=== PATIENT | female | born 2000 | race Caucasian/White ===

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

== ENCOUNTER 2023-05-07 17:25 | Outpatient (REF) | payer MEDICAID, SELFPAY ==
[2023-05-08 05:35] LABS: CT PCR NOT DETECTED (Not Detect.); NG PCR NOT DETECTED (Not Detect.)
== END 2023-05-07 17:26 | disposition home or self-care (01) ==
LOC: HO.HHCLNP 17:25
PROVIDERS: Visit Provider Advanced Practice Midwife
DX: Z11.3 Encounter for screening for infections with a predominantly sexual mode of transmission (principal)
CPT/HCPCS: 0353U

== ENCOUNTER 2023-11-25 10:02 | Emergency (ER) | payer MEDICAID, SELFPAY ==
[2023-11-25 10:16] VITALS: BP 108/61; PULSE 114; RESP 18; TEMP 36.6; O2SAT 98; BMI 30.1
[2023-11-25 12:57] LABS: MANUAL DIFF FLAG NO
[2023-11-25 12:58] LABS: Basophils Percent Auto 0.3 % (0-2); Eosinophils Absolute Auto 0.1 X10*3/uL (0.0-0.4); Eosinophils Percent Auto 0.5 % (0-4); Hematocrit 39.3 % (37.0-47.0); Hemoglobin 12.7 g/dl (12.0-16.0); Imm Gran Abs Auto 0.02 X10*3/uL (0.00-0.03); Imm Gran Pct Auto 0.2 % (0.0-0.4); Lymphocytes Absolute Auto 1.8 X10*3/uL (1.2-4.9); Lymphocytes Percent Auto 15.8 % (20-40); Mean Corpuscular HGB Conc 32.3 g/dl (31.0-35.0); Mean Corpuscular Hemoglobin 25.5 pg (27.0-33.0); Mean Corpuscular Volume 78.8 fL (80.0-98.0); Mean Platelet Volume 10.4 fL (9.4-12.3); Monocytes Absolute Auto 0.7 X10*3/uL (0.1-1.2); Monocytes Percent Auto 6.5 % (2-11); Neutrophils Absolute Auto 8.5 x10*3/uL (2.0-8.3); Neutrophils Percent Auto 76.7 % (45-73); Platelet Count 293 X10*3/uL (160-400); Red Blood Count 4.99 X10*6/uL (4.20-5.50); Red Cell Distribution Width 14.7 % (11.0-16.0); White Blood Count 11.1 X10*3/uL (4.8-10.8)
[2023-11-25 13:00] LABS: Appearance Urine Cloudy; Color Urine Yellow; Glucose Urine UA Negative (Negative); Leukocyte Esterase Urine Moderate (2+) (Negative); Nitrite Urine Negative (Negative); UMIC TRIGGER UACC YES; Urine Blood Trace (Negative); Urine Ketones Negative (Negative); Urine Protein 30 (1+) mg/dL (Neg-Trace)
[2023-11-25 13:17] LABS: Alanine Aminotransferase 17 U/L (0-31); Albumin Level 4.4 g/dL (3.5-5.0); Alkaline Phosphatase 91 U/L (39-117); Anion Gap 16 (12-20); Aspartate Amino Transferase 19 U/L (5-31); Bilirubin Total 0.4 mg/dL (0.0-1.0); Blood Urea Nitrogen 7 mg/dL (9-16); Calcium 9.7 mg/dL (8.4-10.2); Carbon Dioxide 23 mmol/L (22-29); Chloride 105 mmol/L (96-108); Creatinine Clr Calc Pharmacy 118.2; Estimated Glomerular Filt Rate > 60; Glucose Random 97 mg/dL (60-115); Lipase 24 U/L (8-78); Potassium 4.1 mmol/L (3.3-5.1); Sodium 140 mmol/L (135-145); Total Protein 7.5 g/dL (6.5-8.0)
[2023-11-25 13:20] LABS: HCG Quantitative < 2 mIU/mL
[2023-11-25 13:35] LABS: Bacteria Urine 4+ (None Seen); UACC Culture Trigger YES; WBC Urine >50 /HPF (0-5)
--- NOTE | 2023-11-25 13:42 | ED_ITS ---
HPI - General Adult General Chief complaint: General Medical Stated complaint: Vomiting/Lower back pain Time Seen by Provider: 11/25/23 12:21 Source: patient Mode of arrival: ambulatory Limitations: no limitations History of Present Illness HPI narrative: Patient is a 23-year-old female who presents emergency department for evaluation of lower back pain diffuse left greater than right for 3 days with suprapubic pain and urinary frequency in addition to a single episode of vomiting while in the emergency department. She denies any fevers, chills, chest pain, shortness of breath, persistent nausea, diarrhea, constipation, hematuria, abnormal vaginal discharge, concern for sexually transmitted infections. She reports last menstrual period 11/10/2023 and denies possibility of . Denies any history of recent urinary tract infection. Related Data Previous Rx's Medication Instructions Recorded ondansetron HCl 4 mg tablet 4 mg PO Q8H PRN nausea and 06/29/20 (Zofran) vomiting #10 tabs albuterol sulfate 90 mcg/actuation 2 puff inhalation Q4-6H PRN 01/24/21 aerosol inhaler shortness of breath or wheezing #6.7 grams benzonatate 100 mg capsule 100 mg PO TID PRN cough #14 caps 01/24/21 (Tessalon Perles) fluticasone propionate 50 2 spray intranasal DAILY #16 grams 01/24/21 mcg/actuation nasal spray,suspension (Flonase Allergy Relief) prednisone 20 mg tablet 40 mg (2 x 20 mg) PO DAILY 5 days 01/24/21 #10 tabs albuterol sulfate 90 mcg/actuation 2 puff inhalation QID PRN 02/01/21 aerosol inhaler shortness of breath or wheezing #8.5 grams ondansetron HCl 4 mg tablet 4 mg PO Q8H PRN nausea and 02/01/21 (Zofran) vomiting #10 tabs pantoprazole 40 mg tablet,delayed 40 mg PO DAILY #20 tabs 02/01/21 release (Protonix) erythromycin 5 mg/gram (0.5 %) eye 0.5 inch ophthalmic (eye) TID #3.5 04/07/21 ointment grams hydrocodone 5 mg-acetaminophen 325 1 tab PO Q6H PRN pain #12 tabs 04/08/21 mg tablet ondansetron 4 mg disintegrating 4 mg PO Q8H PRN nausea and 04/08/21 tablet vomiting #20 tabs cefuroxime axetil 250 mg tablet 250 mg PO BID #14 tabs 11/25/23 Allergies Allergy/AdvReac Type Severity Reaction Status Date / Time SEASONAL ALLERGIES Allergy Intermediate UNKNOWN Uncoded 11/25/23 10:16 Review of Systems 2 Review of Systems: Yes all other systems are reviewed and are negative [facility] Past Medical History Attestation statement: The following information was validated with the patient. Source: old records reviewed Medical History Asthma Social History Social History Alcohol intake: never Advance Directives: No Advance Directives Information Provided: No Physical Exam ED Vital Signs: Vital Signs - 24 hr 11/25/23 10:16 Temperature 98 F Pulse Rate 114 H Respiratory Rate 18 Blood Pressure 108/61 Pulse Oximetry 98 Oxygen Delivery Method Room Air BMI result Body Mass Index 30.1 Appearance: Alert.?Oriented to person, place and time. No acute distress.?Normal affect. Eyes: Pupils equal, round and reactive to light.? ENT: Pharynx normal.?? Neck: Normal inspection.? Neck supple.?? CVS: Heart sounds normal. Normal heart rate and rhythm.? Pulses normal.?? Respiratory: No respiratory distress.? Lung sounds clear to auscultation bilaterally?? Abdomen: Soft with mild suprapubic tenderness upon palpation. No CVA tenderness. Normoactive bowel sounds. No pulsatile mass.?? Skin: Skin warm and dry.? Normal skin color.? Extremities: No lower extremity edema.? Neuro: Moves all extremities spontaneously. Sensation intact bilaterally. Ambulates with normal steady gait. Medical Decision Making Medical Decision Making MDM Narrative: Patient is a 23-year-old female who presents emergency department for evaluation of left greater than right low back pain, urinary frequency, suprapubic pain as per HPI. She is overall well-appearing. Nontoxic. No CVA tenderness, low suspicion for pyelonephritis, hydronephrosis, ureteral calculi. Suprapubic tenderness upon palpation, no rebound tenderness, low suspicion for appendicitis, diverticulitis, ovarian torsion, PID. Labs reveal mild leukocytosis of 11.1, no anemia, no electrolyte abnormality, no DEMARCO, hCG negative. Urinalysis consistent with UTI, received initial dose of antibiotics while in the emergency department. Tolerating oral intake. Stable for discharge home and outpatient follow-up with PCP. All questions answered. Differential Diagnosis Differential Diagnoses: The differential diagnosis associated with the presentation includes (See narrative above) Admission/Observation Consideration of admission/observation: Escalation of care including admission/observation considered (See narrative above) Lab Data MDM Lab Attestation statement: I reviewed the patient's lab results. (See narrative above) 11/25/23 12:49 11/25/23 12:49 Labs: Lab Results 11/25/23 Range/Units 12:49 WBC 11.1 H (4.8-10.8) X10*3/uL RBC 4.99 (4.20-5.50) X10*6/uL Hgb 12.7 (12.0-16.0) g/dl Hct 39.3 (37.0-47.0) % MCV 78.8 L (80.0-98.0) fL MCH 25.5 L (27.0-33.0) pg MCHC 32.3 (31.0-35.0) g/dl RDW 14.7 (11.0-16.0) % Plt Count 293 (160-400) X10*3/uL MPV 10.4 (9.4-12.3) fL Immature Gran % (Auto) 0.2 (0.0-0.4) % Neut % (Auto) 76.7 H (45-73) % Lymph % (Auto) 15.8 L (20-40) % Perkins % (Auto) 6.5 (2-11) % Eos % (Auto) 0.5 (0-4) % Baso % (Auto) 0.3 (0-2) % Lymph # (Auto) 1.8 (1.2-4.9) X10*3/uL Perkins # (Auto) 0.7 (0.1-1.2) X10*3/uL Eos # (Auto) 0.1 (0.0-0.4) X10*3/uL Baso # (Auto) 0.0 (0.0-0.2) X10*3/uL Abs Immat Gran (auto) 0.02 (0.00-0.03) X10*3/uL Absolute Neuts (auto) 8.5 H (2.0-8.3) x10*3/uL Absolute Nucleated RBC 0.000 (0.0-0.012) X10*3/uL Nucleated RBC % (auto) 0.0 (0.0-0.2) /100WBC Sodium 140 (135-145) mmol/L Potassium 4.1 (3.3-5.1) mmol/L Chloride 105 (96-108) mmol/L Carbon Dioxide 23 (22-29) mmol/L Anion Gap 16 (12-20) BUN 7 L (9-16) mg/dL Creatinine 0.74 (0.5-1.4) mg/dL Estim Creat Clear Calc 118.2 Estimated GFR > 60 Random Glucose 97 (60-115) mg/dL Calcium 9.7 (8.4-10.2) mg/dL Total Bilirubin 0.4 (0.0-1.0) mg/dL AST 19 (5-31) U/L ALT 17 (0-31) U/L Alkaline Phosphatase 91 (39-117) U/L Total Protein 7.5 (6.5-8.0) g/dL Albumin 4.4 (3.5-5.0) g/dL Lipase 24 (8-78) U/L Beta HCG, Quant < 2 mIU/mL Urine Color Yellow Urine Appearance Cloudy Urine pH 8.0 (5.0-9.0) Ur Specific [place] 1.020 (1.005-1.025) Urine Protein 30 (1+) H (Neg-Trace) mg/dL Urine Glucose (UA) Negative (Negative) mg/dL Urine Ketones Negative (Negative) mg/dL Urine Blood Trace H (Negative) Urine Nitrite Negative (Negative) Ur Leukocyte Esterase Moderate (2+) H (Negative) Urine RBC 11-20 H (0-2) /HPF Urine WBC >50 H (0-5) /HPF Ur Squamous Epith Cells 3-5 (0-2) /HPF Urine Bacteria 4+ (None Seen) Hyaline Casts 3-5 (0-2) /LPF External Record Review External record reviewed: Prior outpatient labs Prescription Management I considered prescription management with: Pain Medication (Acetaminophen/ibuprofen) and Antibiotic Discharge Plan Discharge Clinical Impression: Urinary tract infection Patient Disposition: Home, Self-Care Instructions: Urinary Tract Infection in Women (DC) Additional Instructions: Complete the entire course of antibiotics as prescribed. You can take ibuprofen 200 mg, 3 tablets (600mg) every 6-8 hours as needed for pain, in addition to Tylenol 500 mg, 2 tablets (1,000mg) every 4-6 hours as needed for pain, but not to exceed 3 doses daily (3,000mg).? Follow-up with your primary care provider. Return back to emergency department any new or worsening symptoms or concerns. Prescriptions: New cefuroxime axetil 250 mg tablet 250 mg PO BID Qty: 14 0RF No Action ondansetron HCl [Zofran] 4 mg tablet 4 mg PO Q8H PRN (Reason: nausea and vomiting) Qty: 10 0RF albuterol sulfate 90 mcg/actuation HFA aerosol inhaler 2 puff inhalation Q4-6H PRN (Reason: shortness of breath or wheezing) Qty: 6.7 0RF prednisone 20 mg tablet 40 mg PO DAILY 5 Days Qty: 10 0RF benzonatate [Tessalon Perles] 100 mg capsule 100 mg PO TID PRN (Reason: cough) Qty: 14 0RF fluticasone propionate [Flonase Allergy Relief] 50 mcg/actuation spray,suspension 2 spray intranasal DAILY Qty: 16 0RF Rx Instructions: administer into each nostril albuterol sulfate 90 mcg/actuation HFA aerosol inhaler 2 puff inhalation QID PRN (Reason: shortness of breath or wheezing) Qty: 8.5 0RF ondansetron HCl [Zofran] 4 mg tablet 4 mg PO Q8H PRN (Reason: nausea and vomiting) Qty: 10 0RF pantoprazole [Protonix] 40 mg tablet,delayed release (DR/EC) 40 mg PO DAILY Qty: 20 0RF erythromycin 5 mg/gram (0.5 %) ointment 0.5 inch ophthalmic (eye) TID Qty: 3.5 0RF hydrocodone-acetaminophen 5-325 mg tablet 1 tab PO Q6H PRN (Reason: pain) Qty: 12 0RF ondansetron 4 mg tablet,disintegrating 4 mg PO Q8H PRN (Reason: nausea and vomiting) Qty: 20 0RF Referrals: [facility] [Primary Care Provider] -
[2023-11-25] MEDS: cefuroxime axetiL 250 MG TABLET PO (14:04)
[2023-11-25] MEDS: Ketorolac Tromethamine 30 MG/ML VIAL IM (14:04)
== END 2023-11-25 14:10 | disposition home or self-care (01) ==
PROVIDERS: Nurse Practitioner Family; Emergency Provider Student in an Organized Health Care Education/Training Program
DX: N39.0 Urinary tract infection, site not specified (principal); R11.2 Nausea with vomiting, unspecified; M54.50 Low back pain, unspecified; R35.0 Frequency of micturition; Z79.899 Other long term (current) drug therapy
CPT/HCPCS: 36415; 80053; 81001; 81003; 83690; 84702; 85025; 87086; 87088; 87186; 96372; 99284; J1885

== ENCOUNTER 2024-06-12 13:27 | Emergency (ER) | payer MEDICAID, SELFPAY ==
--- NOTE | ~2024-06-12 | CT_ITS ---
EXAMINATION: CT ABDOMEN AND PELVIS WITHOUT CONTRAST CLINICAL INFORMATION: Left-sided flank pain. COMPARISON: No pertinent prior studies are available for comparison. TECHNIQUE: Multidetector volumetric imaging was performed from the lung bases to the pubic without contrast. Sagittal and coronal reformatted images were obtained on the technologist workstation. This CT examination was performed using dose optimization techniques as appropriate, variously including the following: *Automated exposure control. *Adjustment of mA and/or kV according to patient size (this includes techniques or standardized protocols for targeted exams where dose is matched to indication/reason for exam; i.e. extremities or head). *Use of iterative reconstruction technique. DLP: 605 mGy-cm FINDINGS: LUNG BASES: No abnormalities of the visualized lung bases. No demonstrated abnormalities of the visualized cardiac structures. ABDOMEN/PELVIS: Liver, Biliary Ducts, and Gallbladder: The unenhanced liver is normal in size and attenuation without focal hepatic lesions or biliary ductal dilatation. The gallbladder is physiologically distended without radiopaque gallstones, pericholecystic fluid, or significant gallbladder wall thickening. Pancreas: The pancreas is normal in appearance. Adrenal Glands: The adrenal glands are normal in appearance. Spleen: The spleen is normal in appearance. Kidneys and Ureters: The unenhanced kidneys are normal in size without evidence of nephrolithiasis or hydronephrosis. No ureterolithiasis or hydroureter. Urinary Bladder: The urinary bladder is partially distended without focal wall thickening. No bladder calculi are demonstrated. Gastrointestinal System: The stomach is decompressed and therefore not well evaluated on this exam. The small bowel is of normal caliber. The colon is normal in appearance without focal wall thickening or pericolonic inflammatory change. Normal appendix. Genitourinary: IUD in place. No adnexal soft tissue masses. Intra-abdominal and Retroperitoneal Spaces: No intra-abdominal free fluid collections or gas. No mesenteric, retroperitoneal, or inguinal lymphadenopathy. VASCULATURE: The abdominal aorta is of normal contour and caliber. MUSCULOSKELETAL: No lytic or sclerotic osseous lesions demonstrated. No soft tissue masses demonstrated. CT/CT abdomen pelvis wo IV con IMPRESSION: No CT abnormalities to explain the patient's symptoms. Electronically signed by: Eduard Grey DO 06/13/2024 01:12 AM EDT
[2024-06-12 14:04] VITALS: BP 121/67; PULSE 93; RESP 16; TEMP 36.6; O2SAT 100; BMI 32.5
--- NOTE | 2024-06-12 14:15 | ED.FEMALEGU ---
HPI - Female Genitourinary General Chief complaint: Urogenital-Female Stated complaint: stomach and back pain, blood in urine Time Seen by Provider: 06/12/24 16:23 Source: patient and RN notes reviewed Mode of arrival: ambulatory Limitations: no limitations History of Present Illness ED Provider: Katy Stinson PA-C HPI Narrative: This is a 23-year-old female, with no known medical problems, who presents emergency department with complaints of acute left-sided flank pain which started yesterday. Patient states that while she was resting at home she suddenly developed left flank pain. She states that she also has had urinary frequency, urgency, and dysuria. She also reports episode of blood in her urine. She denies any abdominal pain. Denies history of similar symptoms in the past. She states that she has a history of urinary tract infections however states that her symptoms are different than UTI that it she has had. She denies any nausea or vomiting. No history of kidney stones in the past. She took azo prior to arrival which provided her with no relief. No fevers, chills, chest pain, shortness of breath, vaginal bleeding or vaginal discharge. No chance of . She states she is not sexually active denies concerns for STIs at this time. No other complaints or concerns at this time. MD elicited complaint: UTI and back pain Pertinent past history: IUD Onset (ago): day(s) Severity: severe Female Urogenital Radiation: L Flank Severity scale (1-10): 10 Quality of pain: sharp Consistency: constant Vaginal discharge: none Vaginal bleeding: none Urinary symptoms: Dysuria, Urgency, Frequency and Flank Pain Exacerbating factors: urination Relieving factors: none Associated symptoms: denies other symptoms Treatment prior to arrival: none Sexual activity: No Patient : No Related Data Previous Rx's ?Medication ?Instructions ?Recorded ondansetron HCl 4 mg tablet 4 mg PO Q8H PRN nausea and 06/29/20 (Zofran) vomiting #10 tabs albuterol sulfate 90 mcg/actuation 2 puff inhalation Q4-6H PRN 01/24/21 aerosol inhaler shortness of breath or wheezing #6.7 grams benzonatate 100 mg capsule 100 mg PO TID PRN cough #14 caps 01/24/21 (Tyson Mohr) fluticasone propionate 50 2 spray intranasal DAILY #16 grams 01/24/21 mcg/actuation nasal spray,suspension (Flonase Allergy Relief) prednisone 20 mg tablet 40 mg (2 x 20 mg) PO DAILY 5 days 01/24/21 #10 tabs albuterol sulfate 90 mcg/actuation 2 puff inhalation QID PRN 02/01/21 aerosol inhaler shortness of breath or wheezing #8.5 grams ondansetron HCl 4 mg tablet 4 mg PO Q8H PRN nausea and 02/01/21 (Zofran) vomiting #10 tabs pantoprazole 40 mg tablet,delayed 40 mg PO DAILY #20 tabs 02/01/21 release (Protonix) erythromycin 5 mg/gram (0.5 %) eye 0.5 inch ophthalmic (eye) TID #3.5 04/07/21 ointment grams hydrocodone 5 mg-acetaminophen 325 1 tab PO Q6H PRN pain #12 tabs 04/08/21 mg tablet ondansetron 4 mg disintegrating 4 mg PO Q8H PRN nausea and 04/08/21 tablet vomiting #20 tabs cefuroxime axetil 250 mg tablet 250 mg PO BID #14 tabs 11/25/23 cephalexin 500 mg capsule 500 mg PO TID #42 caps 06/13/24 Allergies Allergy/AdvReac Type Severity Reaction Status Date / Time SEASONAL ALLERGIES Allergy Intermediate UNKNOWN Uncoded 06/12/24 14:04 Review of Systems Review of Systems: Yes all other systems are reviewed and are negative Constitutional: Constitutional: Reports as per [facility] Past Medical History Attestation statement: The following information was validated with the patient. Medical History Asthma Social History Social History Alcohol intake: never Advance Directives: No Advance Directives Information Provided: No Do you have a plan to hurt others: No Plan Patient : No Physical Exam Vital Signs: Vital Signs: Last Vital Signs Temp 97.7 F 06/13/24 02:06 Pulse 73 06/13/24 02:06 Resp 16 06/13/24 02:06 BP 100/62 06/13/24 02:06 Pulse Ox 97 06/13/24 02:06 O2 Del Method Room Air 06/13/24 02:06 BMI result Body Mass Index 32.5 Const: General: cooperative, comfortable and no acute distress Orientation/consciousness: patient oriented x3 Limitations: no limitations HEENT: Head: Yes normal to inspection, Yes normocephalic and Yes atraumatic Ears: hearing grossly normal bilaterally General nose exam: Normal external nose present Face and sinus: Yes normal facial exam Mouth: Normal oral and palatal mucosa present, oropharynx normal and moist mucous membranes Throat: Yes posterior oropharynx normal Eyes: General: appearance normal, both eyes and all related structures Eyelids: Yes eyelids normal Conjunctivae: conjunctivae normal Sclerae: sclerae normal Pupils: Equal, round and reactive pupils present EOM: EOMs intact bilaterally Neck: Neck: Yes normal visual inspection, Yes full ROM and Yes no lymphadenopathy Lymphatic: no lymphadenopathy noted Chest: Chest palpation & inspection: normal inspection of the chest Resp: Effort & Inspection: normal respiratory effort and able to speak in complete sentences Auscultation: clear to auscultation bilaterally, no crackles, no rales, no rhonchi and no wheezes Cardio: Rate: regular rate Rhythm: regular rhythm Heart sounds: S1 normal heart sound present and S2 normal heart sound present GI: Other: Abdomen is soft, with mild tenderness to palpation along the left flank, otherwise nontender. No rebound or guarding. Inspection: Yes normal to inspection Auscultation: normal bowel sounds : Other: Left CVA tenderness on examination Skin: General skin exam: no rashes or lesions noted Trauma: no lacerations or abrasions Wounds: no wounds Neuro: General: patient oriented x3 and moves all extremities Cranial nerves: Yes Equal, round and reactive pupils present Extrem: General: Yes normal to inspection Right upper extremity: normal to inspection Left upper extremity: normal to inspection Right lower extremity: normal to inspection Left lower extremity: normal to inspection Course Course Course Narrative: RME: Done by [employer]. 23-year-old female status post IUD placement a month ago presents to ED for lower abdominal pressure pain, flank pain, and some vaginal bleeding. Patient states no chest pain, shortness of breath, fever, chills, any recent trauma. Labs ordered. Reevaluation(s) Reevaluation #1: Patient feeling much better after receiving Toradol, and antibiotics, still receiving IV fluids. Awaiting CT scan. Sign-out given to my colleague, Rhonda Garcia PA-C pending CT scan results and disposition Time: 19:38 Reevaluation #2: I Rhonda Garcia PA-C have accepted care of the patient had signed out pending imaging I have independently reviewed the following tests: CT abdomen and pelvis,CT ABDOMEN AND PELVIS WITHOUT CONTRAST CLINICAL INFORMATION: Left-sided flank pain. COMPARISON: No pertinent prior studies are available for comparison. TECHNIQUE: Multidetector volumetric imaging was performed from the lung bases to the pubic without contrast. Sagittal and coronal reformatted images were obtained on the technologist workstation. This CT examination was performed using dose optimization techniques as appropriate, variously including the following: *Automated exposure control. *Adjustment of mA and/or kV according to patient size (this includes techniques or standardized protocols for targeted exams where dose is matched to indication/reason for exam; i.e. extremities or head). *Use of iterative reconstruction technique. DLP: 605 mGy-cm FINDINGS: LUNG BASES: No abnormalities of the visualized lung bases. No demonstrated abnormalities of the visualized cardiac structures. ABDOMEN/PELVIS: Liver, Biliary Ducts, and Gallbladder: The unenhanced liver is normal in size and attenuation without focal hepatic lesions or biliary ductal dilatation. The gallbladder is physiologically distended without radiopaque gallstones, pericholecystic fluid, or significant gallbladder wall thickening. Pancreas: The pancreas is normal in appearance. Adrenal Glands: The adrenal glands are normal in appearance. Spleen: The spleen is normal in appearance. Kidneys and Ureters: The unenhanced kidneys are normal in size without evidence of nephrolithiasis or hydronephrosis. No ureterolithiasis or hydroureter. Urinary Bladder: The urinary bladder is partially distended without focal wall thickening. No bladder calculi are demonstrated. Gastrointestinal System: The stomach is decompressed and therefore not well evaluated on this exam. The small bowel is of normal caliber. The colon is normal in appearance without focal wall thickening or pericolonic inflammatory change. Normal appendix. Genitourinary: IUD in place. No adnexal soft tissue masses. Intra-abdominal and Retroperitoneal Spaces: No intra-abdominal free fluid collections or gas. No mesenteric, retroperitoneal, or inguinal lymphadenopathy. VASCULATURE: The abdominal aorta is of normal contour and caliber. MUSCULOSKELETAL: No lytic or sclerotic osseous lesions demonstrated. No soft tissue masses demonstrated. CT/CT abdomen pelvis wo IV con IMPRESSION: No CT abnormalities to explain the patient's symptoms. Electronically signed by: Eduard Grey DO 06/13/2024 01:12 AM EDT Medications Administered Discontinued Medications Generic Name Dose Route Start Last Admin Trade Name Jorge Aq PRN Reason Stop Dose Admin Ceftriaxone Sodium 1 gm/ 50 mls @ 100 mls/hr 06/12/24 17:37 06/12/24 19:11 Sodium Chloride IV 06/12/24 18:06 Infused ONCE ONE Infusion Sodium Chloride 1,000 mls @ 999 mls/hr 06/12/24 17:39 06/12/24 19:16 Ns IV 06/12/24 18:39 Infused .Q1H1M ONE Infusion Sodium Chloride 1,000 mls @ 999 mls/hr 06/12/24 22:45 06/13/24 00:27 Ns IV 06/12/24 23:45 Infused .Q1H1M ZACH Infusion Sodium Chloride 1,000 mls @ 999 mls/hr 06/12/24 22:45 06/13/24 01:35 Ns IV 06/12/24 23:45 Infused .Q1H1M ZACH Infusion Ketorolac Tromethamine 30 mg 06/12/24 17:37 06/12/24 18:14 Ketorolac Tromethamine 30 Mg/Ml Vial IVPUSH 06/12/24 17:38 30 mg ONCE ONE Administration Medical Decision Making Medical Decision Making [facility] Narrative: This is a 23-year-old female who presents emergency department with complaints of acute onset left-sided flank pain which started yesterday. She also endorses dysuria, 1 episode of hematuria, urinary frequency and urgency. On arrival, vital signs within normal limits. Differential diagnoses include UTI, pyelonephritis, obstructive uropathy. Labs were obtained prior to my assessment. She has slight leukocytosis at 11.8, with slight left shift, chemistry revealing no evidence of DEMARCO, urine appears to be grossly infected with positive nitrites, small blood, moderate leuk esterases, rbc's and wbc's. She is not . Given positive CVA tenderness on the left, as well as episode of hematuria, concern for pyelonephritis versus kidney stone. Will obtain CT of the abdomen and pelvis for further evaluation. Patient medicated with Toradol, ceftriaxone, and IV fluids. Differential Diagnosis Differential Diagnoses: The differential diagnosis associated with the presentation includes See above Lab Data MDM Lab Attestation statement: I reviewed the patient's lab results. 06/12/24 14:34 06/12/24 14:34 Labs: Lab Results 06/12/24 06/12/24 Range/Units 14:34 16:16 WBC 11.8 H (4.8-10.8) X10*3/uL RBC 4.95 (4.20-5.50) X10*6/uL Hgb 12.7 (12.0-16.0) g/dl Hct 39.6 (37.0-47.0) % MCV 80.0 (80.0-98.0) fL MCH 25.7 L (27.0-33.0) pg MCHC 32.1 (31.0-35.0) g/dl RDW 14.5 (11.0-16.0) % Plt Count 339 (160-400) X10*3/uL MPV 10.6 (9.4-12.3) fL Immature Gran % (Auto) 0.4 (0.0-0.4) % Neut % (Auto) 71.8 (45-73) % Lymph % (Auto) 20.5 (20-40) % [place] % (Auto) 6.4 (2-11) % Eos % (Auto) 0.7 (0-4) % Baso % (Auto) 0.2 (0-2) % Lymph # (Auto) 2.4 (1.2-4.9) X10*3/uL [place] # (Auto) 0.8 (0.1-1.2) X10*3/uL Eos # (Auto) 0.1 (0.0-0.4) X10*3/uL Baso # (Auto) 0.0 (0.0-0.2) X10*3/uL Abs Immat Gran (auto) 0.05 H (0.00-0.03) X10*3/uL Absolute Neuts (auto) 8.5 H (2.0-8.3) x10*3/uL Absolute Nucleated RBC 0.000 (0.0-0.012) X10*3/uL Nucleated RBC % (auto) 0.0 (0.0-0.2) /100WBC Sodium 138 (135-145) mmol/L Potassium 3.6 (3.3-5.1) mmol/L Chloride 105 (96-108) mmol/L Carbon Dioxide 26 (22-29) mmol/L Anion Gap 11 L (12-20) BUN 8 L (9-16) mg/dL Creatinine 0.75 (0.5-1.4) mg/dL Estim Creat Clear Calc 121.2 Estimated GFR > 60 Random Glucose 95 (60-115) mg/dL Calcium 9.7 (8.4-10.2) mg/dL Total Bilirubin 0.2 (0.0-1.0) mg/dL AST 15 (5-31) U/L ALT 13 (0-31) U/L Alkaline Phosphatase 80 (39-117) U/L Total Protein 7.8 (6.5-8.0) g/dL Albumin 4.4 (3.5-5.0) g/dL Beta HCG, Quant < 2 mIU/mL Urine Color Dark Yellow Urine Appearance Cloudy Urine pH 6.5 (5.0-9.0) Ur Specific [place] 1.015 (1.005-1.025) Urine Protein 30 (1+) H (Neg-Trace) mg/dL Urine Glucose (UA) Negative (Negative) mg/dL Urine Ketones Negative (Negative) mg/dL Urine Blood Small (1+) H (Negative) Urine Nitrite Positive H (Negative) Ur Leukocyte Esterase Moderate (2+) H (Negative) Urine RBC 3-5 H (0-2) /HPF Urine WBC >50 H (0-5) /HPF Ur Squamous Epith Cells 0-2 (0-2) /HPF Urine Bacteria 1+ (None Seen) Hyaline Casts 0-2 (0-2) /LPF Urine Test NEGATIVE (NEGATIVE) Radiology Impression Discussion of test interpretation with radiology: I have reviewed the radiologist's reading. External Record Review External record reviewed: Inpatient record, Office record, Outpatient record, Prior outpatient labs, Prior outpatient radiology, Primary care record and Outside ED record Discharge Plan Discharge Clinical Impression: Pyelonephritis Patient Disposition: Home, Self-Care Instructions: Kidney Infection (ED) Additional Instructions: The CT scan of the abdomen was negative, you have a kidney infection. See home care instructions. Take your antibiotic, the cephalexin, as directed. If you develop a fever, you can alternate between the use of [id number] Tylenol 1000 mg taken every 8 hours, with [id number] ibuprofen 600 mg taken every 6 hours with food. Follow up with your primary care provider as needed. Prescriptions: New cephalexin 500 mg capsule 500 mg PO TID Qty: 42 0RF No Action ondansetron HCl [Zofran] 4 mg tablet 4 mg PO Q8H PRN (Reason: nausea and vomiting) Qty: 10 0RF albuterol sulfate 90 mcg/actuation HFA aerosol inhaler 2 puff inhalation Q4-6H PRN (Reason: shortness of breath or wheezing) Qty: 6.7 0RF prednisone 20 mg tablet 40 mg PO DAILY 5 Days Qty: 10 0RF benzonatate [Tessalon Perles] 100 mg capsule 100 mg PO TID PRN (Reason: cough) Qty: 14 0RF fluticasone propionate [Flonase Allergy Relief] 50 mcg/actuation spray,suspension 2 spray intranasal DAILY Qty: 16 0RF Rx Instructions: administer into each nostril albuterol sulfate 90 mcg/actuation HFA aerosol inhaler 2 puff inhalation QID PRN (Reason: shortness of breath or wheezing) Qty: 8.5 0RF ondansetron HCl [Zofran] 4 mg tablet 4 mg PO Q8H PRN (Reason: nausea and vomiting) Qty: 10 0RF pantoprazole [Protonix] 40 mg tablet,delayed release (DR/EC) 40 mg PO DAILY Qty: 20 0RF erythromycin 5 mg/gram (0.5 %) ointment 0.5 inch ophthalmic (eye) TID Qty: 3.5 0RF hydrocodone-acetaminophen 5-325 mg tablet 1 tab PO Q6H PRN (Reason: pain) Qty: 12 0RF ondansetron 4 mg tablet,disintegrating 4 mg PO Q8H PRN (Reason: nausea and vomiting) Qty: 20 0RF cefuroxime axetil 250 mg tablet 250 mg PO BID Qty: 14 0RF Interventions: ED Discharge Assessment Last Done: 06/13/24 02:06 Discharge Date/Time: 06/13/24 02:06 Print Language: Azeri
[2024-06-12 14:42] LABS: MANUAL DIFF FLAG NO
[2024-06-12 14:44] LABS: Basophils Percent Auto 0.2 % (0-2); Eosinophils Absolute Auto 0.1 X10*3/uL (0.0-0.4); Eosinophils Percent Auto 0.7 % (0-4); Hematocrit 39.6 % (37.0-47.0); Hemoglobin 12.7 g/dl (12.0-16.0); Imm Gran Abs Auto 0.05 X10*3/uL (0.00-0.03); Imm Gran Pct Auto 0.4 % (0.0-0.4); Lymphocytes Absolute Auto 2.4 X10*3/uL (1.2-4.9); Lymphocytes Percent Auto 20.5 % (20-40); Mean Corpuscular HGB Conc 32.1 g/dl (31.0-35.0); Mean Corpuscular Hemoglobin 25.7 pg (27.0-33.0); Mean Platelet Volume 10.6 fL (9.4-12.3); Monocytes Absolute Auto 0.8 X10*3/uL (0.1-1.2); Monocytes Percent Auto 6.4 % (2-11); Neutrophils Absolute Auto 8.5 x10*3/uL (2.0-8.3); Neutrophils Percent Auto 71.8 % (45-73); Platelet Count 339 X10*3/uL (160-400); Red Blood Count 4.95 X10*6/uL (4.20-5.50); Red Cell Distribution Width 14.5 % (11.0-16.0); White Blood Count 11.8 X10*3/uL (4.8-10.8)
[2024-06-12 15:08] LABS: Alanine Aminotransferase 13 U/L (0-31); Albumin Level 4.4 g/dL (3.5-5.0); Alkaline Phosphatase 80 U/L (39-117); Anion Gap 11 (12-20); Aspartate Amino Transferase 15 U/L (5-31); Bilirubin Total 0.2 mg/dL (0.0-1.0); Blood Urea Nitrogen 8 mg/dL (9-16); Calcium 9.7 mg/dL (8.4-10.2); Carbon Dioxide 26 mmol/L (22-29); Chloride 105 mmol/L (96-108); Creatinine Clr Calc Pharmacy 121.2; Estimated Glomerular Filt Rate > 60; Glucose Random 95 mg/dL (60-115); Potassium 3.6 mmol/L (3.3-5.1); Sodium 138 mmol/L (135-145); Total Protein 7.8 g/dL (6.5-8.0)
[2024-06-12 15:21] LABS: HCG Quantitative < 2 mIU/mL
[2024-06-12 16:28] LABS: Appearance Urine Cloudy; Color Urine Dark Yellow; Glucose Urine UA Negative (Negative); Leukocyte Esterase Urine Moderate (2+) (Negative); Nitrite Urine Positive (Negative); PH 6.5 (5.0-9.0); Specific Gravity - Urine 1.015 (1.005-1.025); UMIC TRIGGER UACC YES; Urine Blood Small (1+) (Negative); Urine Ketones Negative (Negative); Urine Protein 30 (1+) mg/dL (Neg-Trace)
[2024-06-12 16:32] LABS: UPreg QC Valid YES; Urine Pregnancy NEGATIVE (NEGATIVE)
[2024-06-12 16:41] VITALS: BP 96/53; PULSE 85; RESP 16; TEMP 37.3; O2SAT 100
[2024-06-12 16:45] LABS: Bacteria Urine 1+ (None Seen); Hyaline Casts Urine 0-2 /LPF (0-2); Squamous Epithelial Cell Urine 0-2 /HPF (0-2); UACC Culture Trigger YES; WBC Urine >50 /HPF (0-5)
[2024-06-12] MEDS: 0.9 % Sodium Chloride 1,000 ML 999 ML IV ×2 (18:13→22:37)
[2024-06-12] MEDS: Ketorolac Tromethamine 30 MG/ML VIAL IVPUSH (18:14)
--- NOTE | 2024-06-12 18:17 | PC.NURSE ---
pt medicated for 10/10 rt back, pain, ivf and abx running per order
--- NOTE | 2024-06-12 18:22 | PC.NURSE ---
blood cultures to be drawn before abx- they are ready when tech has completed.
[2024-06-12] MEDS: cefTRIAXone sodium 1 GM in 0.9 % Sodium Chloride 50 ML IV (18:41)
--- NOTE | 2024-06-12 18:42 | PC.NURSE ---
abx hung per order
[2024-06-12 18:47] VITALS: BP 109/63; PULSE 92; RESP 18; TEMP 37.1; O2SAT 100
[2024-06-12 20:34] VITALS: BP 107/52; PULSE 87; RESP 14; TEMP 36.7; O2SAT 98
[2024-06-12 22:18] VITALS: BP 93/54; PULSE 83; RESP 12; TEMP 36.4; O2SAT 99
[2024-06-13] MEDS: 0.9 % Sodium Chloride 1,000 ML 999 ML IV (00:32)
[2024-06-13 01:38] VITALS: BP 100/62; PULSE 73; RESP 16; TEMP 36.5; O2SAT 97
[2024-06-13 02:06] VITALS: BP 100/62; PULSE 73; RESP 16; TEMP 36.5; O2SAT 97
== END 2024-06-13 02:06 | disposition home or self-care (01) ==
PROVIDERS: Physician Assistant; Emergency Provider Internal Medicine
DX: N12 Tubulo-interstitial nephritis, not specified as acute or chronic (principal); M54.50 Low back pain, unspecified; R10.9 Unspecified abdominal pain; R30.0 Dysuria; R35.0 Frequency of micturition; R11.2 Nausea with vomiting, unspecified; Z79.899 Other long term (current) drug therapy
CPT/HCPCS: 36415; 74176; 80053; 81001; 81025; 84702; 85025; 87040; 87086; 87088; 87186; 96361; 96374; 96375; 99284; J0696; J1885

== ENCOUNTER 2024-06-20 16:01 | Outpatient (REF) | payer MEDICAID, SELFPAY | END 2024-06-20 16:02 | disposition home or self-care (01) | LOC: HO.HHCLNP 16:01 | PROVIDERS: Visit Provider Family Medicine | DX: N30.01 Acute cystitis with hematuria (principal) | CPT/HCPCS: 87086 ==

== ENCOUNTER 2024-06-23 18:28 | Outpatient (REF) | payer MEDICAID, SELFPAY ==
[2024-06-26 12:14] LABS: C. trachomatis RNA TMA NOT DETECTED; N. gonorrhoeae RNA TMA NOT DETECTED; Trichomonas (NAAT) NOT DETECTED
== END 2024-06-23 18:29 | disposition home or self-care (01) ==
LOC: HO.HHCLNP 18:28
PROVIDERS: Visit Provider Advanced Practice Midwife
DX: Z11.3 Encounter for screening for infections with a predominantly sexual mode of transmission (principal); Z12.4 Encounter for screening for malignant neoplasm of cervix
CPT/HCPCS: 36415; 87491; 87591; 87661; 88175

== ENCOUNTER 2024-10-08 11:10 | Emergency (ER) | payer MEDICAID, SELFPAY ==
--- NOTE | ~2024-10-08 | US_ITS ---
EXAMINATION: US OBSTETRICAL ULTRASOUND CLINICAL INFORMATION: Positive ; abdominal pain. COMPARISON: None available. LMP: 10/08/2024. Gestational age by maternal dates is 9 weeks and 0 days. Estimated date of delivery by maternal dates is 05/13/2025. TECHNIQUE: Ultrasound of the maternal pelvis is performed using transabdominal and transvaginal transducers. Transvaginal imaging is performed due to inadequate visualization transabdominally. M-mode Doppler is also performed. FINDINGS: There is a single intrauterine gestational sac with visible yolk sac in the fundal endometrium. Good dual decidual reaction. No definite pole seen at this time. There is no significant subchorionic hemorrhage or hematoma. Mean sac diameter is 0.9 cm, corresponding to 5 weeks and 4 days. Normal-appearing uterus and cervix. MATERNAL ADNEXA: The right maternal ovary measures 3.4 x 2.0 x 2.4 cm. There is a simple follicular cyst measuring 2.3 x 1.8 x 2.3 cm. The left maternal ovary measures 2.4 x 1.3 x 1.3 cm. Normal sonographic appearance. There is no significant maternal adnexal mass. No maternal pelvic ascites. US/US OB pelvic and transvaginal IMPRESSION: 1. Single intrauterine gestational sac in the fundal endometrium with residual decidual reaction and yolk sac. pole not yet seen, likely due to early dates. 2. Estimated gestational age by mean sac diameter is 5 weeks and 4 days. No subchorionic hemorrhage identified. 3. No free pelvic fluid seen. 4. Normal ovaries. Electronically signed by: Jackson Eden MD 10/08/2024 03:01 PM CAL
[2024-10-08 11:24] VITALS: BP 106/55; PULSE 81; RESP 16; TEMP 36.4; O2SAT 100; BMI 32.6
--- NOTE | 2024-10-08 11:25 | ED.GENADULT ---
HPI - General Adult General Chief complaint: Abdominal Pain Stated complaint: Not Feeling Well Time Seen by Provider: 10/08/24 16:02 Related Data Previous Rx's ?Medication ?Instructions ?Recorded ondansetron HCl 4 mg tablet 4 mg PO Q8H PRN nausea and 06/29/20 (Zofran) vomiting #10 tabs albuterol sulfate 90 mcg/actuation 2 puff inhalation Q4-6H PRN 01/24/21 aerosol inhaler shortness of breath or wheezing #6.7 grams benzonatate 100 mg capsule 100 mg PO TID PRN cough #14 caps 01/24/21 (Tessalon Perles) fluticasone propionate 50 2 spray intranasal DAILY #16 grams 01/24/21 mcg/actuation nasal spray,suspension (Flonase Allergy Relief) prednisone 20 mg tablet 40 mg (2 x 20 mg) PO DAILY 5 days 01/24/21 #10 tabs albuterol sulfate 90 mcg/actuation 2 puff inhalation QID PRN 02/01/21 aerosol inhaler shortness of breath or wheezing #8.5 grams ondansetron HCl 4 mg tablet 4 mg PO Q8H PRN nausea and 02/01/21 (Zofran) vomiting #10 tabs pantoprazole 40 mg tablet,delayed 40 mg PO DAILY #20 tabs 02/01/21 release (Protonix) erythromycin 5 mg/gram (0.5 %) eye 0.5 inch ophthalmic (eye) TID #3.5 04/07/21 ointment grams hydrocodone 5 mg-acetaminophen 325 1 tab PO Q6H PRN pain #12 tabs 04/08/21 mg tablet ondansetron 4 mg disintegrating 4 mg PO Q8H PRN nausea and 04/08/21 tablet vomiting #20 tabs cefuroxime axetil 250 mg tablet 250 mg PO BID #14 tabs 11/25/23 cephalexin 500 mg capsule 500 mg PO TID #42 caps 06/13/24 vits no.10-ferrous 1 tab PO DAILY #30 tabs 10/08/24 fumarate 65 mg iron-folic acid 1 mg tablet Allergies Allergy/AdvReac Type Severity Reaction Status Date / Time No Known Allergies Allergy Verified 10/08/24 11:26 [facility] Past Medical History Medical History Asthma Social History Social History Alcohol intake: never Advance Directives: No Advance Directives Information Provided: Yes Do you have a plan to hurt others: No Plan Physical Exam ED Vital Signs: Vital Signs - 24 hr 10/08/24 11:24 10/08/24 15:03 Temperature 97.6 F 99.1 F Pulse Rate 81 83 Respiratory Rate 16 15 Blood Pressure 106/55 L 116/53 L Pulse Oximetry 100 100 Oxygen Delivery Method Room Air Room Air BMI result Body Mass Index 32.6 Course Course Course Narrative: This is a rapid medical exam performed by Yovana Rodriguez NP: Additional HPI, ROS, PE not included below will be deferred to primary provider. Patient is a 24-year-old female presenting to the ED stating that she had a positive test and is having abdominal pain. LMP 08/06/24. One episode of small amount of vaginal bleeding with wiping. Plan: labs, ua, u/s Medical Decision Making Lab Data 10/08/24 13:12 10/08/24 13:12 Labs: Lab Results 10/08/24 10/08/24 Range/Units 13:12 13:18 WBC 8.1 (4.8-10.8) X10*3/uL RBC 4.76 (4.20-5.50) X10*6/uL Hgb 12.6 (12.0-16.0) g/dl Hct 38.3 (37.0-47.0) % MCV 80.5 (80.0-98.0) fL MCH 26.5 L (27.0-33.0) pg MCHC 32.9 (31.0-35.0) g/dl RDW 14.1 (11.0-16.0) % Plt Count 302 (160-400) X10*3/uL MPV 10.1 (9.4-12.3) fL Immature Gran % (Auto) 0.2 (0.0-0.4) % Neut % (Auto) 70.4 (45-73) % Lymph % (Auto) 23.1 (20-40) % [place] % (Auto) 5.4 (2-11) % Eos % (Auto) 0.7 (0-4) % Baso % (Auto) 0.2 (0-2) % Lymph # (Auto) 1.9 (1.2-4.9) X10*3/uL [place] # (Auto) 0.4 (0.1-1.2) X10*3/uL Eos # (Auto) 0.1 (0.0-0.4) X10*3/uL Baso # (Auto) 0.0 (0.0-0.2) X10*3/uL Abs Immat Gran (auto) 0.02 (0.00-0.03) X10*3/uL Absolute Neuts (auto) 5.7 (2.0-8.3) x10*3/uL Absolute Nucleated RBC 0.000 (0.0-0.012) X10*3/uL Nucleated RBC % (auto) 0.0 (0.0-0.2) /100WBC Sodium 136 (135-145) mmol/L Potassium 3.5 (3.3-5.1) mmol/L Chloride 107 (96-108) mmol/L Carbon Dioxide 25 (22-29) mmol/L Anion Gap 8 L (12-20) BUN 10 (9-16) mg/dL Creatinine 0.66 (0.5-1.4) mg/dL Estim Creat Clear Calc 136.9 Estimated GFR > 60 Random Glucose 83 (60-115) mg/dL Calcium 9.5 (8.4-10.2) mg/dL Total Bilirubin 0.3 (0.0-1.0) mg/dL AST 21 (5-31) U/L ALT 27 (0-31) U/L Alkaline Phosphatase 67 (39-117) U/L Total Protein 7.7 (6.5-8.0) g/dL Albumin 4.3 (3.5-5.0) g/dL Beta HCG, Quant 8256 mIU/mL Urine Color Yellow Urine Appearance Clear Urine pH 6.0 (5.0-9.0) Ur Specific [place] 1.020 (1.005-1.025) Urine Protein Negative (Neg-Trace) mg/dL Urine Glucose (UA) Negative (Negative) mg/dL Urine Ketones Trace (Negative) mg/dL Urine Blood Negative (Negative) Urine Nitrite Negative (Negative) Ur Leukocyte Esterase Negative (Negative) Discharge Plan Discharge Clinical Impression: Patient Disposition: Home, Self-Care Instructions: Threatened Miscarriage (ED), (ED), at 7 to 10 Weeks (ED) Prescriptions: New vit 10-iron fum-folic 65-1 mg tablet 1 tab PO DAILY Qty: 30 0RF No Action ondansetron HCl [Zofran] 4 mg tablet 4 mg PO Q8H PRN (Reason: nausea and vomiting) Qty: 10 0RF albuterol sulfate 90 mcg/actuation HFA aerosol inhaler 2 puff inhalation Q4-6H PRN (Reason: shortness of breath or wheezing) Qty: 6.7 0RF prednisone 20 mg tablet 40 mg PO DAILY 5 Days Qty: 10 0RF benzonatate [Tessalon Perles] 100 mg capsule 100 mg PO TID PRN (Reason: cough) Qty: 14 0RF fluticasone propionate [Flonase Allergy Relief] 50 mcg/actuation spray,suspension 2 spray intranasal DAILY Qty: 16 0RF Rx Instructions: administer into each nostril albuterol sulfate 90 mcg/actuation HFA aerosol inhaler 2 puff inhalation QID PRN (Reason: shortness of breath or wheezing) Qty: 8.5 0RF ondansetron HCl [Zofran] 4 mg tablet 4 mg PO Q8H PRN (Reason: nausea and vomiting) Qty: 10 0RF pantoprazole [Protonix] 40 mg tablet,delayed release (DR/EC) 40 mg PO DAILY Qty: 20 0RF erythromycin 5 mg/gram (0.5 %) ointment 0.5 inch ophthalmic (eye) TID Qty: 3.5 0RF hydrocodone-acetaminophen 5-325 mg tablet 1 tab PO Q6H PRN (Reason: pain) Qty: 12 0RF ondansetron 4 mg tablet,disintegrating 4 mg PO Q8H PRN (Reason: nausea and vomiting) Qty: 20 0RF cefuroxime axetil 250 mg tablet 250 mg PO BID Qty: 14 0RF cephalexin 500 mg capsule 500 mg PO TID Qty: 42 0RF Referrals: Freeman Li MD [Physician] - 10/10/24 Print Language: B[place]ian
[2024-10-08 13:24] LABS: MANUAL DIFF FLAG NO
[2024-10-08 13:26] LABS: Basophils Percent Auto 0.2 % (0-2); Eosinophils Absolute Auto 0.1 X10*3/uL (0.0-0.4); Eosinophils Percent Auto 0.7 % (0-4); Hematocrit 38.3 % (37.0-47.0); Hemoglobin 12.6 g/dl (12.0-16.0); Imm Gran Abs Auto 0.02 X10*3/uL (0.00-0.03); Imm Gran Pct Auto 0.2 % (0.0-0.4); Lymphocytes Absolute Auto 1.9 X10*3/uL (1.2-4.9); Lymphocytes Percent Auto 23.1 % (20-40); Mean Corpuscular HGB Conc 32.9 g/dl (31.0-35.0); Mean Corpuscular Hemoglobin 26.5 pg (27.0-33.0); Mean Corpuscular Volume 80.5 fL (80.0-98.0); Mean Platelet Volume 10.1 fL (9.4-12.3); Monocytes Absolute Auto 0.4 X10*3/uL (0.1-1.2); Monocytes Percent Auto 5.4 % (2-11); Neutrophils Absolute Auto 5.7 x10*3/uL (2.0-8.3); Neutrophils Percent Auto 70.4 % (45-73); Platelet Count 302 X10*3/uL (160-400); Red Blood Count 4.76 X10*6/uL (4.20-5.50); Red Cell Distribution Width 14.1 % (11.0-16.0); White Blood Count 8.1 X10*3/uL (4.8-10.8)
[2024-10-08 13:30] LABS: Appearance Urine Clear; Color Urine Yellow; Glucose Urine UA Negative (Negative); Leukocyte Esterase Urine Negative (Negative); Nitrite Urine Negative (Negative); Urine Blood Negative (Negative); Urine Ketones Trace mg/dL (Negative); Urine Protein Negative (Neg-Trace)
[2024-10-08 14:05] LABS: Alanine Aminotransferase 27 U/L (0-31); Albumin Level 4.3 g/dL (3.5-5.0); Alkaline Phosphatase 67 U/L (39-117); Anion Gap 8 (12-20); Aspartate Amino Transferase 21 U/L (5-31); Bilirubin Total 0.3 mg/dL (0.0-1.0); Blood Urea Nitrogen 10 mg/dL (9-16); Calcium 9.5 mg/dL (8.4-10.2); Carbon Dioxide 25 mmol/L (22-29); Chloride 107 mmol/L (96-108); Creatinine Clr Calc Pharmacy 136.9; Estimated Glomerular Filt Rate > 60; Glucose Random 83 mg/dL (60-115); Potassium 3.5 mmol/L (3.3-5.1); Sodium 136 mmol/L (135-145); Total Protein 7.7 g/dL (6.5-8.0)
[2024-10-08 14:09] LABS: HCG Quantitative 8256 mIU/mL
[2024-10-08 15:03] VITALS: BP 116/53; PULSE 83; RESP 15; TEMP 37.3; O2SAT 100
--- NOTE | 2024-10-08 16:44 | ED_ITS ---
HPI - Abdominal Pain General Chief Complaint: Abdominal Pain Stated Complaint: Not Feeling Well Time Seen by Provider: 10/08/24 16:02 History of Present Illness HPI narrative: patient is a 24-year-old female found out from a home test she is 3 days ago started having some mild abdominal pain. Has a history of having an IUD. Patient claims her last real period was August 06 2024. No fever no chills no chest pain has minimal spotting today. Otherwise no bleeding. No change in bowel movement. No history of abdominal surgery in the past. Patient from home. Related Data Previous Rx's ?Medication ?Instructions ?Recorded ondansetron HCl 4 mg tablet 4 mg PO Q8H PRN nausea and 06/29/20 (Zofran) vomiting #10 tabs albuterol sulfate 90 mcg/actuation 2 puff inhalation Q4-6H PRN 01/24/21 aerosol inhaler shortness of breath or wheezing #6.7 grams benzonatate 100 mg capsule 100 mg PO TID PRN cough #14 caps 01/24/21 (Tyson Mohr) fluticasone propionate 50 2 spray intranasal DAILY #16 grams 01/24/21 mcg/actuation nasal spray,suspension (Flonase Allergy Relief) prednisone 20 mg tablet 40 mg (2 x 20 mg) PO DAILY 5 days 01/24/21 #10 tabs albuterol sulfate 90 mcg/actuation 2 puff inhalation QID PRN 02/01/21 aerosol inhaler shortness of breath or wheezing #8.5 grams ondansetron HCl 4 mg tablet 4 mg PO Q8H PRN nausea and 02/01/21 (Zofran) vomiting #10 tabs pantoprazole 40 mg tablet,delayed 40 mg PO DAILY #20 tabs 02/01/21 release (Protonix) erythromycin 5 mg/gram (0.5 %) eye 0.5 inch ophthalmic (eye) TID #3.5 04/07/21 ointment grams hydrocodone 5 mg-acetaminophen 325 1 tab PO Q6H PRN pain #12 tabs 04/08/21 mg tablet ondansetron 4 mg disintegrating 4 mg PO Q8H PRN nausea and 04/08/21 tablet vomiting #20 tabs cefuroxime axetil 250 mg tablet 250 mg PO BID #14 tabs 11/25/23 cephalexin 500 mg capsule 500 mg PO TID #42 caps 06/13/24 vits no.10-ferrous 1 tab PO DAILY #30 tabs 10/08/24 fumarate 65 mg iron-folic acid 1 mg tablet Allergies Allergy/AdvReac Type Severity Reaction Status Date / Time No Known Allergies Allergy Verified 10/08/24 11:26 Review of Systems Review of Systems Positive abdominal pain Yes all other systems are reviewed and are negative [facility] Past Medical History Attestation statement: The following information was validated with the patient. Medical History Asthma Social History Social History Alcohol intake: never Advance Directives: No Advance Directives Information Provided: Yes Do you have a plan to hurt others: No Plan Physical Exam ED Vital Signs: Vital Signs - 24 hr 10/08/24 11:24 10/08/24 15:03 Temperature 97.6 F 99.1 F Pulse Rate 81 83 Respiratory Rate 16 15 Blood Pressure 106/55 L 116/53 L Pulse Oximetry 100 100 Oxygen Delivery Method Room Air Room Air BMI result Body Mass Index 32.6 Appearance: Alert. Oriented X3. No acute distress. Eyes: Pupils equal, round and reactive to light. ENT: Pharynx normal. Neck: Normal inspection. Neck supple. No lymph nodes noted. No crepitus CVS: Normal heart rate and rhythm. Pulses normal. Normal S1 and S2 Respiratory: No respiratory distress. Breath sounds normal. No Wheezing. No rales Abdomen: Soft and nontender. No rigidity. No distention. good BS x4 Skin: Skin warm and dry. Normal skin color. Normal skin turgor. Extremities: No lower extremity edema. Neurovascular intact to all extremities. No Lacerations. No Rash Neuro: Oriented X 3. No motor deficit. No sensory deficit. Moving all extermities. No slurred speech Medical Decision Making Medical Decision Making MDM Narrative: Patient well appearing no acute distress. Her urine showed no evidence of urinary tract infection. Her test was positive. Quantitative HCG was approximately a 8250. a pelvic ultrasound was done positive yolk sac was noted. Likely patient has an intrauterine . No evidence for ectopic. Currently well-appearing. No distress. Hemoglobin is 12.6. Will discharge patient home close follow-up on an outpatient basis. In stable condition. Differential Diagnosis Differential Diagnoses: The differential diagnosis associated with the presentation includes Ectopic , early , threatened miscarriage Admission/Observation Consideration of admission/observation: Escalation of care including admission/observation considered Lab Data MDM Lab Attestation statement: I reviewed the patient's lab results. 10/08/24 13:12 10/08/24 13:12 Labs: Lab Results 10/08/24 10/08/24 Range/Units 13:12 13:18 WBC 8.1 (4.8-10.8) X10*3/uL RBC 4.76 (4.20-5.50) X10*6/uL Hgb 12.6 (12.0-16.0) g/dl Hct 38.3 (37.0-47.0) % MCV 80.5 (80.0-98.0) fL MCH 26.5 L (27.0-33.0) pg MCHC 32.9 (31.0-35.0) g/dl RDW 14.1 (11.0-16.0) % Plt Count 302 (160-400) X10*3/uL MPV 10.1 (9.4-12.3) fL Immature Gran % (Auto) 0.2 (0.0-0.4) % Neut % (Auto) 70.4 (45-73) % Lymph % (Auto) 23.1 (20-40) % [place] % (Auto) 5.4 (2-11) % Eos % (Auto) 0.7 (0-4) % Baso % (Auto) 0.2 (0-2) % Lymph # (Auto) 1.9 (1.2-4.9) X10*3/uL [place] # (Auto) 0.4 (0.1-1.2) X10*3/uL Eos # (Auto) 0.1 (0.0-0.4) X10*3/uL Baso # (Auto) 0.0 (0.0-0.2) X10*3/uL Abs Immat Gran (auto) 0.02 (0.00-0.03) X10*3/uL Absolute Neuts (auto) 5.7 (2.0-8.3) x10*3/uL Absolute Nucleated RBC 0.000 (0.0-0.012) X10*3/uL Nucleated RBC % (auto) 0.0 (0.0-0.2) /100WBC Sodium 136 (135-145) mmol/L Potassium 3.5 (3.3-5.1) mmol/L Chloride 107 (96-108) mmol/L Carbon Dioxide 25 (22-29) mmol/L Anion Gap 8 L (12-20) BUN 10 (9-16) mg/dL Creatinine 0.66 (0.5-1.4) mg/dL Estim Creat Clear Calc 136.9 Estimated GFR > 60 Random Glucose 83 (60-115) mg/dL Calcium 9.5 (8.4-10.2) mg/dL Total Bilirubin 0.3 (0.0-1.0) mg/dL AST 21 (5-31) U/L ALT 27 (0-31) U/L Alkaline Phosphatase 67 (39-117) U/L Total Protein 7.7 (6.5-8.0) g/dL Albumin 4.3 (3.5-5.0) g/dL Beta HCG, Quant 8256 mIU/mL Urine Color Yellow Urine Appearance Clear Urine pH 6.0 (5.0-9.0) Ur Specific Marcus 1.020 (1.005-1.025) Urine Protein Negative (Neg-Trace) mg/dL Urine Glucose (UA) Negative (Negative) mg/dL Urine Ketones Trace (Negative) mg/dL Urine Blood Negative (Negative) Urine Nitrite Negative (Negative) Ur Leukocyte Esterase Negative (Negative) Independent Interpretation I performed an independent interpretation of an: Ultrasound ( positive IUP noted.) Radiology Impression Discussion of test interpretation with radiology: I have reviewed the radiologist's reading. Discharge Plan Discharge Clinical Impression: Patient Disposition: Home, Self-Care Instructions: (ED), at 7 to 10 Weeks (ED), Threatened Miscarriage (ED) Prescriptions: New vit 10-iron fum-folic 65-1 mg tablet 1 tab PO DAILY Qty: 30 0RF No Action ondansetron HCl [Zofran] 4 mg tablet 4 mg PO Q8H PRN (Reason: nausea and vomiting) Qty: 10 0RF albuterol sulfate 90 mcg/actuation HFA aerosol inhaler 2 puff inhalation Q4-6H PRN (Reason: shortness of breath or wheezing) Qty: 6.7 0RF prednisone 20 mg tablet 40 mg PO DAILY 5 Days Qty: 10 0RF benzonatate [Tessalon Perles] 100 mg capsule 100 mg PO TID PRN (Reason: cough) Qty: 14 0RF fluticasone propionate [Flonase Allergy Relief] 50 mcg/actuation spray,suspension 2 spray intranasal DAILY Qty: 16 0RF Rx Instructions: administer into each nostril albuterol sulfate 90 mcg/actuation HFA aerosol inhaler 2 puff inhalation QID PRN (Reason: shortness of breath or wheezing) Qty: 8.5 0RF ondansetron HCl [Zofran] 4 mg tablet 4 mg PO Q8H PRN (Reason: nausea and vomiting) Qty: 10 0RF pantoprazole [Protonix] 40 mg tablet,delayed release (DR/EC) 40 mg PO DAILY Qty: 20 0RF erythromycin 5 mg/gram (0.5 %) ointment 0.5 inch ophthalmic (eye) TID Qty: 3.5 0RF hydrocodone-acetaminophen 5-325 mg tablet 1 tab PO Q6H PRN (Reason: pain) Qty: 12 0RF ondansetron 4 mg tablet,disintegrating 4 mg PO Q8H PRN (Reason: nausea and vomiting) Qty: 20 0RF cefuroxime axetil 250 mg tablet 250 mg PO BID Qty: 14 0RF cephalexin 500 mg capsule 500 mg PO TID Qty: 42 0RF Referrals: Freeman Li MD [Physician] - 10/10/24 Print Language: Malian
[2024-10-08 17:03] VITALS: BP 99/58; PULSE 81; RESP 16; TEMP 36.8; O2SAT 100
[2024-10-08 17:12] VITALS: BP 99/58; PULSE 81; RESP 16; TEMP 36.8; O2SAT 100
--- OUTSIDE RECORDS SUMMARY | 2024-10-08 17:33 | XMS_ITS | Clinical Summary ---
Author Organization [employer] Address [address] [facility] [address] [place] [address] Care Team Providers Care Qlikview Developer Name Role Phone Margaret Alvarenga NP Primary Care Provider [phone] Allergies No known active allergies Medications Drospirenone (Slynd) 4 MG tablet Take 1 tablet by mouth Once per day. 28 tablet 11 Active ferrous gluconate (Fergon) 324 (38 Fe) MG tablet TAKE 1 TABLET BY MOUTH EVERY OTHER DAY 45 tablet Active albuterol (2.5 MG/3ML) 0.083% nebulizer solution Take 3 mL (2.5 mg) by nebulization every 6 (six) hours if needed for wheezing or shortness of breath. 75 mL 1 024 2024 Active albuterol 108 (90 Base) MCG/ACT inhaler INHALE 2 PUFFS BY MOUTH EVERY 4 TO 6 HOURS IF NEEDED FOR SHORTNESS OF BREATH OR WHEEZING; USE WITH SPACER 18 g 2 Active fexofenadine (Xochitl) 180 MG tablet TAKE 1 TABLET BY MOUTH EVERY MORNING 90 tablet Active montelukast (Singulair) 5 MG chewable tabletIndication s:Asthma due to environmental allergies CHEW 2 TABLETS BY MOUTH EVERY DAY IN THE EVENING 180 tablet 2 Active fluticasone (Flonase) 50 MCG/ACT nasal spray Administer 1 spray into each nostril Once per day. Shake gently. Before first use, prime pump. After use, clean tip and replace cap. 48 mL 1 024 2024 Active SUMAtriptan (Imitrex) 25 MG tabletIndication s:Migraine without aura and with status migrainosus, not intractable TAKE 1 TAB ORALLY AFTER MIGRAINE ONSET MAY REPEAT AFTER 2HRS IF HEADACHE RETURNS,MAX 200MG IN 24HRS 15 tablet 024 Active hydrOXYzine pamoate (Vistaril) 25 MG capsuleIndicatio ns:Anxiety TAKE 1 CAPSULE BY MOUTH AT BEDTIME NEEDED FOR ANXIETY OR ALLERGIES 90 capsule 025 Active hydrOXYzine pamoate (Vistaril) 25 MG capsuleIndicatio ns:Anxiety Take 1 capsule (25 mg) by mouth if needed at bedtime for anxiety or allergies. 90 capsule 024 2024 Discontinued Active Problems Problem Noted Date Diagnosed Date Moderate persistent asthma without complication 01/12/2023 Depressive disorder 01/12/2023 Anxiety 01/12/2023 Astigmatism 05/30/2017 Allergic rhinitis 03/22/2016 Developmental academic disorder 01/01/2015 Encounters Date Type Department Care Team Description 10/08/2024 Orders Only GENERIC EXTERNAL DATA DEPARTMENT Provider, Generic External Data 10/02/2024 Patient Outreach [facility] [address] [place] [address] aMrgaret Alvarenga NP Pre-visit Planning ([facility] unable to reach [facility]) 09/20/2024 Refill [facility] [address] [place] [address] Margaret Alvarenga NP Anxiety 08/08/2024 Telephone [facility] [address] [place] [address] Татьяан Leiva MA DME form [employer] 07/29/2024 Telephone [facility] [address] [place] [address] Marciano Villalta MA [employer] 07/25/2024 Patient Outreach [facility] [address] [place] [address] Margaret Alvarenga NP 07/22/2024 Refill [facility] [address] [place] [address] Margaret Alvarenga NP Migraine without aura and with status migrainosus, not intractable from Last 3 Months Immunizations Name Administration Dates Next Due DTaP, 5 pertussis antigens 12/07/2006,,01/30/2003,12/12,2002 HPV 9-Valent 07/24/2016,03/22/2016 HPV, Quadrivalent 01/01/2015 Hep A, ped/adol, 2 dose 12/21/2016,03/22/2016 Hep B, Adolescent or Pediatric 04/17/2003,2002,2002 Hib (PRP-T) 11/06/2003, 3,2002,10/03 IPV 12/07/2006, 3,2002,10/03 Influenza injectable quadriv alent preservative free 08/30/2020,06/28/2018,07/24/2016 Influenza, IIV3, injectable 07/25/2004, 3 Influenza, live, intranasal 07/03/2013 MMR 07/31/2003 MMRV 12/07/2006 Meningococcal MCV4P ACYW-135 05/28/2020,01/02/20 15 Novel [id number], all formulations 12/06/2009,08/17/2009 Pneumococcal Conjugate PCV 7 11/06/2003, 01/30/2003,2002,10/03 Tdap 01/01/2015 Varicella 07/31/2003 Family History Medical History Relation Name Comments Cancer Father's Brother Asthma Mother OCD Mother Thyroid disease Mother Relation Name Status Comments Father's Brother Mother Social History Tobacco Use Types Packs/Day Years Used Date Smoking Tobacco: Never Smokeless Tobacco: Never Tobacco Cessation:Counseling Given: Not Answered Alcohol Use Standard Drinks/Week Comments Not Currently 0 (1 standard drink = 0.6 oz pur e alcohol) Depression Answer Date Recorded Patient Health Questionnaire-9 Score 16 11/22/2022 Housing Stability Answer Date Recorded What is your housing situation today? I do not have housing (Staying with others, in a hotel, in a retirement, living outside on the street, on a beach, in a car, or in a park 06/24/[address] you li ve. Do you have problems with any of the following? None of the above 06/24/2023 Food Insecurity Answer Date Recorded Within the past 12 months, y ou worried that your food would run out before you got money to buy more: Sometimes True 2022 Within the past 12 months,th e food you bought just didn't last and you didn't have enough money to get more: Sometimes True 07/07/2023 Transportation Answer Date Recorded In the past 12 months, has l ack of transportation kept you from medical appts, meetings, work or from getting things needed for daily living? No 07/07/2023 Utilities Answer Date Recorded In the past 12 months, has t he electric, gas, oil or water company threatened to shut off services in your home? No 07/07/2023 Depression Answer Date Recorded Patient Health Questionnaire-2 Score 6 11/22/2022 Comments No Sex and Gender Information Value Date Recorded Sex Assigned at Female 07/17/2022 10:19 AM EDT Legal Sex Female 10:19 AM EDT Gender Identity Female 07/17/2022 10:19 AM EDT Sexual Orientation Straight 07/17/2022 10 :19 AM EDT Last Filed Vital Signs Vital Sign Reading Time Taken Comments Blood Pressure 130/73 06/23/2024 1:05 PM EDT Pulse 92 06/23/2024 1:05 PM EDT Temperature 36.6 ??C (97.9 ??F) 06/23/2024 1:05 PM ED T Respiratory Rate 20 06/23/2024 1:05 PM EDT Oxygen Saturation 98% 06/23/2024 1:05 PM EDT Inhaled Oxygen Concentration - - Weight 81.7 kg (180 lb 3.2 oz) 06/23/2024 1:05 P M EDT Height 160 cm (5' 3 ) 06/23/2024 1:05 PM EDT Body Mass Index 31.92 06/23/2024 1:05 PM EDT Plan of Treatment Upcoming Encounters Date Type Department Care Team (Late st Contact Info) Description 10/13/2024 10:30 AM EST Office Visit [facility] [address] [place] [address] Margaret Alvarenga NP [address] [place] [address] Health Maintenance Due Date Last Done Comments Pneumococcal Vaccine: Pediatrics (0 to 5 Years) and At-Risk Patients (6 to 64 Years) (1 of 2 - PCV) 2008 11/06/2003, 01/30/2003, 2002, Additional history exists Alcohol/Substance Use Screening 2014 Depression Monitoring (PHQ-9) 05/25/2023 11/22/2022, 11/22/2022 Depression Screening 11/23/2023 11/22/2022, 11/23/19 23 SDOH Screening 11/23/2023 11/22/2022 Chlamydia and Gonorrhea Screening 05/07/2024 05/07/2023, 11/22/2022, 07/12/2021 COVID-19 Vaccine ( season) 2024 04/13/2021, 03/24/2021 Influenza Vaccine (#1) 2024 , 06/28/2018, 07/24/2016, Additional history exists DTaP/Tdap/Td Vaccines (7 - Td or Tdap) 01/01/2025 01/01/2015, 12/07/2006, 02/12/2004, Additional history exists Family Planning (PISQ) 06/23/2025 06/23/2024 Tobacco Screening 06/23/2025 06/23/2024 Pap Smear 06/23/2027 06/23/2024 Zoster Vaccines (1 of 2) 2052 RSV Patients and Patients Aged 60 years or older (1 - 1-dose 75+ series) 2077 Hepatitis B Vaccines Completed 04/17/2003, 01/30/2003, 2002 HIB Vaccines Completed 11/06/2003, 01/15, 2002, Additional history exists IPV Vaccines Completed 12/07/2006, 09/2002, 2002, Additional history exists HPV Vaccines Completed 07/24/2016, 02/2016, 01/01/2015 Hepatitis A Vaccines Completed 12/21/2016, 03/22/20 16 Meningococcal Vaccine Completed 05/28/2020, 015 HIV Screening Completed 11/22/2022 Hepatitis C Screening Completed 11/22/2022 RSV under 20 months Aged Out No longe r eligible based on patient's age to complete this topic Rotavirus Vaccines Aged Out No longer eligible based on patient's age to complete this topic Procedures Procedure Name Priority Date/Time Associated Diagnosis Comments US OB PELVIS TRANSVAGINAL Routine 10/08/2024 2:24 PM EST URINALYSIS WITH REFLEX MICROSCOPIC Routine 10/08/2024 1:18 PM EST HCG, TOTAL, QN Routine 10/08/2024 1:12 PM EST COMPREHENSIVE METABOLIC PANEL Routine 10/08/2024 1:12 PM EST CBC WITH AUTO DIFFERENTIAL Routine 10/08/2024 1:12 PM EST THINPREP IMAGING SYSTEM PAP Routine 06/23/2024 1:32 PM EDT Cervical cancer screening CHLAMYDIA/N. GONORRHOEAE RNA, TMA, UROGENITAL Routine 05/07/2023 11:27 AM EDT Screening examination for venereal disease HEPATITIS PANEL, GENERAL Routine 11/22/2022 10:42 AM EST Routine general medical examination at a health care facility HIV 1 RNA, QN PCR W/RFL SHAHBAZ (RTI,PI,INTEGRASE) Routine 11/22/2022 10:42 AM EST Routine screening for STI (sexually transmitted infection) from Last 3 Months or Most Recently Relevant to Health Maintenance Results * US OB Pelvis with Transvaginal (10/08/2024 2:24 PM EST) Anatomical Region Laterality Modality Pelvis Ultrasound 10/08/2024 2:24 PM EST Narrative 10/08/2024 3:04 PM EST ? [facility] ?[address] ?[place] [address] ? Ultrasound Report ? Signed ? Patient: Vines,Shy Elmore ?MR#: [id number] ?? [id number] ? : 2000 ?Acct:[id number] ? Age/Sex: 24 / F ?ADM Date: 01/22/25 ? Loc: HO.ED ? Attending Dr: ? Ordering Physician: Alysha Rodriguez NP ?? Date of Service: 10/08/24 ?? Procedure(s): US OB pelvic and transvaginal ?? Accession Number(s): [id number] ? cc: [facility]; Alysha Rodriguez NP ? EXAMINATION: ? US OBSTETRICAL ULTRASOUND ? CLINICAL INFORMATION: ? Positive ; abdominal pain. ? COMPARISON: ? None available. ? LMP: 10/08/2024. ?? Gestational age by maternal dates is 9 weeks and 0 days. ?? Estimated date of delivery by maternal dates is 05/13/2025. ? TECHNIQUE: ?? Ultrasound of the maternal pelvis is performed using transabdominal and ?? transvaginal transducers. Transvaginal imaging is performed due to ?? inadequate visualization transabdominally. M-mode Doppler is also ?? performed. ? FINDINGS: ?? There is a single intrauterine gestational sac with visible yolk sac in ?? the fundal endometrium. ?? Good dual decidual reaction. No definite pole seen at this time. ?? There is no significant subchorionic hemorrhage or hematoma. ? Mean sac diameter is 0.9 cm, corresponding to 5 weeks and 4 days. ? Normal-appearing uterus and cervix. ? MATERNAL ADNEXA: ? The right maternal ovary measures 3.4 x 2.0 x 2.4 cm. ??There is a ?? simple follicular cyst measuring 2.3 x 1.8 x 2.3 cm. ? The left maternal ovary measures 2.4 x 1.3 x 1.3 cm. ??Normal ?? sonographic appearance. ? There is no significant maternal adnexal mass. ??No maternal pelvic ?? ascites. ? US/US OB pelvic and transvaginal ?? IMPRESSION: ?? 1. Single intrauterine gestational sac in the fundal endometrium with ?? residual decidual reaction and yolk sac. pole not yet seen, ?? likely due to early dates. ?? 2. Estimated gestational age by mean sac diameter is 5 weeks and 4 ?? days. No subchorionic hemorrhage identified. ?? 3. No free pelvic fluid seen. ?? 4. Normal ovaries. ? Electronically signed by: ??Jackson Eden MD ??10/08/2024 03:01 PM EST RP ? Dictated By: ?Jackson Eden MD ? Signed By: ?<Electronically signed by Jackson Eden MD in OV> ?10/08/24 1501 ? DD/ 1424 ? TD/TT: 10/08/24 1438 ? Editing Clerk: ? Procedure Note Donotuseinterpreter, Image - 10/08/2024 [place] [address] Ultrasound Report Signed Patient: Shy Vines EMR#: [id number] : 2000Acct:[id number] Age/Sex: Date: 10/08/24 Loc: HO.ED Attending Dr: Ordering Physician: Alysha Rodriguez NP Date of Service: 10/08/24 Procedure(s): US OB pelvic and transvaginal Accession Number(s): [id number] cc: [facility]; Alysha Rodriguez NP EXAMINATION: US OBSTETRICAL ULTRASOUND CLINICAL INFORMATION: Positive ; abdominal pain. COMPARISON: None available. LMP: 10/08/2024. Gestational age by maternal dates is 9 weeks and 0 days. Estimated date of delivery by maternal dates is 05/13/2025. TECHNIQUE: Ultrasound of the maternal pelvis is performed using transabdominal and transvaginal transducers. Transvaginal imaging is performed due to inadequate visualization transabdominally. M-mode Doppler is also performed. FINDINGS: There is a single intrauterine gestational sac with visible yolk sac in the fundal endometrium. Good dual decidual reaction. No definite pole seen at this time. There is no significant subchorionic hemorrhage or hematoma. Mean sac diameter is 0.9 cm, corresponding to 5 weeks and 4 days. Normal-appearing uterus and cervix. MATERNAL ADNEXA: The right maternal ovary measures 3.4 x 2.0 x 2.4 cm. There is a simple follicular cyst measuring 2.3 x 1.8 x 2.3 cm. The left maternal ovary measures 2.4 x 1.3 x 1.3 cm. Normal sonographic appearance. There is no significant maternal adnexal mass. No maternal pelvic ascites. US/US OB pelvic and transvaginal IMPRESSION: 1. Single intrauterine gestational sac in the fundal endometrium with residual decidual reaction and yolk sac. pole not yet seen, likely due to early dates. 2. Estimated gestational age by mean sac diameter is 5 weeks and 4 days. No subchorionic hemorrhage identified. 3. No free pelvic fluid seen. 4. Normal ovaries. Electronically signed by: Jackson Eden MD 10/08/2024 03:01 PM EST Dictated By: Jackson Eden MD Signed By: <Electronically signed by Jackson Eden MD in OV> 10/08/24 1501 DD/ 1424 TD/TT: 10/08/24 1438 Editing Clerk: [facility] External Provider IMG US PROCEDURES Final Result * Urinalysis w/reflex microscopic (10/08/2024 1:18 PM EST) Color Urine Yellow [facility] Appearance Urine Clear [facility] PH 6.0 5.0 - 9.0 [facility] Glucose Urine UA Negative Negative mg/dL [facility] Urine Blood Negative Negative [facility] Specific [place] - Urine 1.020 1.005 - 1.025 [facility] Urine Protein Negative Neg-Trace mg/dL [facility] Urine Ketones Trace Negative mg/dL [facility] Nitrite Urine Negative Negative [facility] Leukocyte Esterase Urine Negative Negative [facility] 10/08/2024 1:18 PM EST 10/08/2024 1:23 PM EST Narrative [facility] - 10/08/2024 1:32 PM EST [id number], Clean Catch Generic External Data Provider LAB URINE ORDERAB LES Final Result [facility] [address] [place] [address] [phone] * (ABNORMAL) CBC auto differential (10/08/2024 1:12 PM EST) White Blood Count 8.1 4.8 - 10.8 X10*3/uL [facility] Red Blood Count 4.76 4.20 - 5.50 X10*6/uL [facility] Hemoglobin 12.6 12.0 - 16.0 g/dl [facility] Hematocrit 38.3 37.0 - 47.0 % [facility] Mean Corpuscular Volume 80.5 80.0 - 98.0 fL [facility] Mean Corpuscular Hemoglobin 26.5(L) 27.0 - 33.0 pg [facility] Mean Corpuscular HGB Conc 32.9 31.0 - 35.0 g/dl [facility] Red Cell Distribution Width 14.1 11.0 - 16.0 % [facility] Platelet Count 302 160 - 400 X10*3/uL [facility] Mean Platelet Volume 10.1 9.4 - 12.3 fL [facility] Neutrophils Percent Auto 70.4 45 - 73 % [facility] Imm Gran Pct Auto 0.2 0.0 - 0.4 % [facility] Lymphocytes Percent Auto 23.1 20 - 40 % [facility] Monocytes Percent Auto 5.4 2 - 11 % [facility] Eosinophils Percent Auto 0.7 0 - 4 % [facility] Basophils Percent Auto 0.2 0 - 2 % [facility] NRBC Pct Auto 0.0 0.0 - 0.2 /100WBC [facility] Neutrophils Absolute Auto 5.7 2.0 - 8.3 x10*3/uL [facility] Imm Gran Abs Auto 0.02 0.00 - 0.03 X10*3/uL [facility] Lymphocytes Absolute Auto 1.9 1.2 - 4.9 X10*3/uL [facility] Monocytes Absolute Auto 0.4 0.1 - 1.2 X10*3/uL [facility] Eosinophils Absolute Auto 0.1 0.0 - 0.4 X10*3/uL [facility] Basophils Absolute Auto 0.0 0.0 - 0.2 X10*3/uL [facility] NRBC Abs Auto 0.000 0.0 - 0.012 X10*3/uL [facility] 10/08/2024 1:12 PM EST 10/08/2024 1:23 PM EST Generic External Data Provider LAB BLOOD ORDERAB LES Final Result Performing Organization Address [facility] Co de Phone Number [facility] [address] [place] [phone] * hCG, Total, Quantitative (10/08/2024 1:12 PM EST) HCG Quantitative 8,256 mIU/mL [facility] Comment:Weeks post LMP Appro ximate hCG(Last Menstrual Period) Range (mIU/ml)3 - 4 weeks 9 - 1304 - 5 weeks 75 - 2,6005 - 6 weeks 850 - 20,8006 - 7 weeks 4000 - 100,2007 - 12 weeks 11,500 - 289,02248 - 16 weeks 18,300 - 137,84473 - 29 weeks (2nd trimester) 1,400 - 53,92490 - 41 weeks (3rd trimester) 940 - 60,000The Cunningham B- hCG assay is used for the early detection ofpregnancy; it cannot be used to diagnose any conditionunrelated to . If a B-hCG level is not supportedby the clinical evidence, results should be confirmed by analternative method (qualitative urine hCG, for example). 10/08/2024 1:12 PM EST 10/08/2024 1:23 PM EST Generic External Data Provider LAB BLOOD ORDERAB LES Final Result Performing Organization Address [facility] Co de Phone Number [facility] [address] [place] [phone] * (ABNORMAL) Comprehensive Metabolic Panel (10/08/2024 1:12 PM EST) Sodium 136 135 - 145 mmol/L [facility] Potassium 3.5 3.3 - 5.1 mmol/L [facility] Chloride 107 96 - 108 mmol/L [facility] Carbon Dioxide 25 22 - 29 mmol/L [facility] Anion Gap 8(L) 12 - 20 [facility] Urea Nitrogen (BUN) 10 9 - 16 mg/dL [facility] Creatinine, Serum 0.66 0.5 - 1.4 mg/dL [facility] Creatinine Clr Calc Pharmacy 136.9 [facility] Comment:Provided height and weight: 160.02 cm,83.5 kg.eGFR (calculated from the MDRD study equation) and eCrCl(calculated from the Cockcroft-Gault equation) are based ondifferent parameters and may not yield comparable results.If eCrCl result is absurd, please check patient'sheight/weight. Estimated Glomerular Filt Rate >60 [facility] Comment:Chronic Kidney Disea se: Estimated GFR < 60 mL/min/1.88w7Ewycdz Kidney Disease: Estimated GFR < 15 mL/min/1.73m2 Glucose 83 60 - 115 mg/dL [facility] Calcium 9.5 8.4 - 10.2 mg/dL [facility] Bilirubin, Total 0.3 0.0 - 1.0 mg/dL [facility] Aspartate Amino Transferase 21 5 - 31 U/L [facility] Alanine Aminotransferase 27 0 - 31 U/L [facility] Total Protein 7.7 6.5 - 8.0 g/dL [facility] Albumin Level 4.3 3.5 - 5.0 g/dL [facility] Alkaline Phosphatase 67 39 - 117 U/L [facility] 10/08/2024 1:12 PM EST 10/08/2024 1:23 PM EST us Generic External Data Provider LAB BLOOD ORDERAB LES Final Result [facility] [address] [place] [address] [phone] * Pap Smear (06/23/2024 1:32 PM EDT) SOURCE: SEE NOTE [facility] Comment:None given Report Status: [facility] Clinical Information: SEE NOTE [facility] Comment:None given LMP: SEE NOTE [facility] Comment:NONE GIVEN Prev. PAP: SEE NOTE [facility] Comment:NONE GIVEN Prev. BX: SEE NOTE [facility] Comment:NONE GIVEN Statement Of Adequacy: SEE NOTE [facility] Comment:Satisfactory for bonifacio luation.Endocervical/transformation zone componentpresent. General Categorization: [facility] Interpretation/Result: SEE NOTE [facility] Comment:Cytology Results: Ne gative for intraepitheliallesion or malignancy. Cytology Comment SEE NOTE [facility] Comment:This Pap test has be en evaluated with computerassisted technology. Brewing Director: SEE NOTE [facility] Comment:EXJ, CT(ASCP)CT Scre ening Location: [address] [address] Review Brewing Director: [facility] Pathologist [facility] PAP Infection [facility] See Note SEE NOTE [facility] Comment:EXPLANATORY NOTE:The Pap is a screening test for cervical cancer. It isnot a diagnostic test and is subject to false negativeand false positive results. It is most reliable when asatisfactory sample, regularly obtained, is submittedwith relevant clinical findings and history, and whenthe Pap result is evaluated along with historic andcurrent clinical information.THIS TEST WAS PERFORMED AT:[facility] [address] [id number] QUINN MD Pap Vial Vaginal structure / Unknown 06/23/2024 1:32 PM EDT 06/23/2024 6:30 PM EDT Narrative [facility] - 06/26/2024 12:11 PM EDT SEE SCANNED RESULTS IN EMR us Deidre MENDENHALLM LAB PATHOLOGY ORDERABLES Final Result [facility] [address] [place] [phone] [phone] * Chlamydia/N. Gonorrhoeae RNA, TMA, Urogenitial (05/07/2023 11:27 AM EDT) CT PCR NOT DETECTED Not Detect. [facility] Comment:A not detected test result does not exclude the possibilityof infection because test results can be affected byimproper specimen collection, concurrent antibiotic therapy,or the number of organisms in the specimen which may bebelow the sensitivity of the test. As with many diagnostictests, results from the Xpert CT/NG assay should beinterpreted in conjunction with other laboratory andclinical data available to the clinician.Xpert CT/NG performance has not been evaluated in patientsless than 14 years of age. The assay should not be used forthe evaluationof suspected sexual abuse or for other medico-legalindications. Additional testing is recommended in anycircumstance when false positive or false negative resultscould lead to adverse medical, social or psychologicalconsequences. NG PCR NOT DETECTED Not Detect. [facility] Comment:A not detected test result does not exclude the possibilityof infection because test results can be affected byimproper specimen collection, concurrent antibiotic therapy,or the number of organisms in the specimen which may bebelow the sensitivity of the test. As with many diagnostictests, results from the Xpert CT/NG assay should beinterpreted in conjunction with other laboratory andclinical data available to the clinician.Xpert CT/NG performance has not been evaluated in patientsless than 14 years of age. The assay should not be used forthe evaluationof suspected sexual abuse or for other medico-legalindications. Additional testing is recommended in anycircumstance when false positive or false negative resultscould lead to adverse medical, social or psychologicalconsequences. Urine (Urine, Random) 05/07/2023 11:27 AM EDT 05/07/2023 5:27 PM EDT Narrative [facility] - 05/08/2023 5:35 AM EDT Urine Deidre Stearns CNM LAB MICROBIOLOGY - GENERA L ORDERABLES Final Result [facility] [address] [place] [phone] [phone] * HIV-1 RNA, Quantitative, Real-Time PCR with Reflex to Genotype (RTI, PI, Integrase) (11/22/2022 10:42 AM EST) HIV 1 RNA, QN PCR NOT DETECTED copies/mL [facility], HIV 1 RNA, QN PCR NOT DETECTED Log copies/mL [facility], Comment: REFERENCE RANGE: NOT DETECTED copies/mL ?NOT DETECTED ??Log copies/mL This test was performed using Real-Time Polymerase Chain Reaction. Reportable range is 20 to 10,000,000 copies/mL (1.30-7.00 Log copies/mL). 11/22/2022 10:4 2 AM EST 11/22/2022 10:42 AM EST Narrative [facility] - 11/25/2022 9:10 AM EST FASTING:NO FASTING: NO Balbina Singleton [employer] LAB BLOOD ORDERABLES Final Resu lt [facility] [address], [place] [phone] [facility], [address] [place] [address] * (ABNORMAL) Hepatitis Panel, General (11/22/2022 10:42 AM EST) Hepatitis A Antibody Total REACTIVE( A) NON-REACT MELANIE [facility] Comment: For additional information, please refer to http://education.Compass.Sokoos/faq/YHM567 (This link is being provided for informational/ educational purposes only.) Hepatitis B Surface Antibody QL NON-REACT MELANIE NON-REACT MELANIE [facility] [place] [facility] Hepatitis B Surface Ag NON-REACT MELANIE NON-REACT MELANIE [facility] [place] [facility] Hepatitis B Core Antibody Total NON-REACT MELANIE NON-REACT MELANIE [facility] [place] [facility] Hepatitis C Antibody NON-REACT MELANIE NON-REACT MELANIE [facility] Index 0.07 <1.00 [facility] [place] [facility] Comment: HCV antibody was non-reactive. There is no laboratory evidence of HCV infection. In most cases, no further action is required. However, if recent HCV exposure is suspected, a test for HCV RNA (test code 59738) is suggested. For additional information please refer to http://education.tritrue/faq/WHP79f0 (This link is being provided for informational/ educational purposes only.) 11/22/2022 10:4 2 AM EST 11/22/2022 10:42 AM EST Narrative [facility] - 11/25/2022 9:10 AM EST FASTING:NO FASTING: NO us Balbina Singleton INSULATION PACKER LAB BLOOD ORDERABLES Final Resu lt [facility] [address], [place] [address] [employer] [place] [employer] 200 [facility], (Nl2) [place] [address] from Last 3 Months or Most Recently Relevant to Health Maintenance Insurance [facility] C3 Care Teams Qlikview Developer Relationship Specialty Start Date End Date Margaret Alvarenga NP [address] [place] [phone] PCP - General Family Medicine 05/20/24 Caroline Nayak Bleach MakerSeo Strategist 05/23/24
--- OUTSIDE RECORDS SUMMARY | 2024-10-08 17:33 | XMS_ITS | Encounter Summary ---
Author Organization [employer] Address [address] [facility] 7t [place] [address] Care Team Providers Care Media Reconciliation Specialist Name Role Phone Margaret Alvarenga NP Primary Care Provider [phone] Encounter Details Date Type Department Care Team ([facility] st Contact Info) Description 10/08/2024 Orders Only GENERIC EXTERNAL DATA DEPARTMENT Provider, Generic External Data Social History Tobacco Use Types Packs/Day Years Used Date Smoking Tobacco: Never Smokeless Tobacco: Never Alcohol Use Standard Drinks/Week Comments Not Currently 0 (1 standard drink = 0.6 oz pur e alcohol) Depression Answer Date Recorded Patient Health Questionnaire-9 Score 16 11/22/2022 Housing Stability Answer Date Recorded What is your housing situation today? I do not have housing (Staying with others, in a hotel, in a [place] [facility] [place], living outside on the street, on a [...] the past 12 months, has t he [employer], gas, oil or water company threatened to shut off services in your home? No 07/07/2023 Depression Answer Date Recorded Patient Health Questionnaire-2 Score 6 11/22/2022 Comments No Sex and Gender Information Value Date Recorded Sex Assigned at Female 07/17/2022 10:19 AM EDT Legal Sex Female 10:19 AM EDT Gender Identity Female 07/17/2022 10:19 AM EDT Sexual Orientation Straight 07/17/2022 10 :19 AM EDT documented as of this encounter Plan of Treatment Upcoming Encounters Date Type Department Care Team (Late st Contact Info) Description 10/13/2024 10:30 AM EST Office Visit [facility] [address] [place], [place] [phone] Margaret Alvarenga NP [address] [place], [place] [phone] documented as of this encounter Procedures Procedure Name Priority Date/Time Associated Diagnosis Comments US OB PELVIS TRANSVAGINAL Routine 10/08/2024 2:24 PM EST URINALYSIS WITH REFLEX MICROSCOPIC Routine 10/08/2024 1:18 PM EST CBC WITH AUTO DIFFERENTIAL Routine 10/08/2024 1:12 PM EST HCG, TOTAL, QN Routine 10/08/2024 1:12 PM EST COMPREHENSIVE METABOLIC PANEL Routine 10/08/2024 1:12 PM EST documented in this encounter Results * US OB Pelvis with Transvaginal (10/08/2024 2:24 PM EST) Anatomical Region Laterality Modality Pelvis Ultrasound 10/08/2024 2:24 PM EST Narrative 10/08/2024 3:04 PM EST ? [facility] ?[address] ?[place] [address] ? Ultrasound Report ? Signed ? Patient: Vines,Shy E ?MR#: [id number] ?? [id number] ? : 2000 ?Acct:[id number] ? Age/Sex: 24 / F ?ADM Date: /22/25 ? Loc: HO.ED ? Attending Dr: ? Ordering Physician: Alysha Rodriguez NP ?? Date of Service: 10/08/24 ?? Procedure(s): US OB pelvic and transvaginal ?? Accession Number(s): [id number] ? cc: [facility]; Alysha Rodriguez NP ? EXAMINATION: ? US [...] DD/ 1424 ? TD/TT: 10/08/24 1438 ? Folded Towel Machine Operator: ? Procedure Note Donotuseinterpreter, Image - 10/08/[address] [place] [address] [address] Ultrasound Report Signed Patient: Shy Vines EMR#: [id number] : 2000Acct:[id number] Age/Sex: Date: 10/08/24 Loc: .ED Attending Dr: Ordering Physician: Alysha Rodriguez NP Date of Service: 10/08/24 Procedure(s): US OB pelvic and transvaginal Accession Number(s): [id number] cc: [facility]; Alysha Rodriguez NP EXAMINATION: US OBSTETRICAL ULTRASOUND [...] 10/08/24 1501 DD/ 1424 TD/TT: 10/08/24 1438 Folded Towel Machine Operator: [facility] External Provider IMG US PROCEDURES Final Result * Urinalysis w/reflex microscopic (10/08/2024 1:18 PM EST) Color Urine Yellow [facility] Appearance Urine Clear [facility] PH 6.0 5.0 - 9.0 [facility] Glucose Urine UA Negative Negative mg/dL [facility] Urine Blood Negative Negative [facility] Specific [place] - Urine 1.020 1.005 - 1.025 [facility] Urine Protein Negative Neg-Trace mg/dL [facility] Urine Ketones Trace Negative mg/dL [facility] Nitrite Urine Negative Negative [facility] Leukocyte Esterase Urine Negative Negative [facility] 10/08/2024 1:18 PM EST 10/08/2024 1:23 PM EST Narrative [facility] - 10/08/2024 1:32 PM EST [id number], Clean Catch Generic External Data Provider LAB URINE ORDERAB LES Final Result [facility] [address] [place] [phone] * hCG, Total, Quantitative (10/08/2024 1:12 PM EST) HCG Quantitative 8,256 mIU/mL [facility] Comment:Weeks post LMP Appro ximate hCG(Last Menstrual Period) Range (mIU/ml)3 - 4 weeks 9 - 1304 - 5 weeks 75 - 2,6005 - 6 weeks 850 - 20,8006 - 7 weeks 4000 - 100,2007 - 12 weeks 11,500 - 289,82155 - 16 weeks 18,300 - 137,86105 - 29 weeks (2nd trimester) 1,400 - 53,03653 - 41 weeks (3rd trimester) 940 - [...] Provider LAB BLOOD ORDERAB LES Final Result [facility] [address] [place] [address] [phone] * (ABNORMAL) Comprehensive Metabolic Panel (10/08/2024 1:12 PM EST) Sodium 136 135 - 145 mmol/L [facility] Potassium 3.5 3.3 - 5.1 mmol/L [facility] Chloride 107 96 - 108 mmol/L [facility] Carbon Dioxide 25 22 - 29 mmol/L [facility] Anion Gap 8(L) 12 - 20 [facility] Urea Nitrogen (BUN) 10 9 - 16 mg/dL [facility] Creatinine, Serum 0.66 0.5 - 1.4 mg/dL [facility] Creatinine Clr Calc Pharmacy 136.9 [facility] Comment:Provided height and weight: 160.02 cm,83.5 kg.eGFR (calculated from the MDRD study equation) and eCrCl(calculated from the Cockcroft-Gault equation) are based ondifferent parameters and may not yield comparable results.If eCrCl result is absurd, please check patient'sheight/weight. Estimated Glomerular Filt Rate >60 [facility] Comment:Chronic Kidney Disea se: Estimated GFR < 60 mL/min/1.90i8Giashf Kidney Disease: Estimated GFR < 15 mL/min/1.73m2 Glucose 83 60 - 115 mg/dL [facility] Calcium 9.5 8.4 - 10.2 mg/dL [facility] Bilirubin, Total 0.3 0.0 - 1.0 mg/dL [facility] Aspartate Amino Transferase 21 5 - 31 U/L [facility] Alanine Aminotransferase 27 0 - 31 U/L [facility] Total Protein 7.7 6.5 - 8.0 g/dL [facility] Albumin Level 4.3 3.5 - 5.0 g/dL [facility] Alkaline Phosphatase 67 39 - 117 U/L [facility] 10/08/2024 1:12 PM EST 10/08/2024 1:23 PM EST us Generic External Data Provider LAB BLOOD ORDERAB LES Final Result [facility] [address] [place] [phone] * (ABNORMAL) CBC auto differential (10/08/2024 1:12 PM EST) White Blood Count 8.1 4.8 - 10.8 X10*3/uL [facility] Red Blood Count 4.76 4.20 - 5.50 X10*6/uL [facility] Hemoglobin 12.6 12.0 - 16.0 g/dl [facility] Hematocrit 38.3 37.0 - 47.0 % [facility] Mean Corpuscular Volume 80.5 80.0 - 98.0 fL [facility] Mean Corpuscular Hemoglobin 26.5(L) 27.0 - 33.0 pg [facility] Mean Corpuscular HGB Conc 32.9 31.0 - 35.0 g/dl [facility] Red Cell Distribution Width 14.1 11.0 - 16.0 % [facility] Platelet Count 302 160 - 400 X10*3/uL [facility] Mean Platelet Volume 10.1 9.4 - 12.3 fL [facility] Neutrophils Percent Auto 70.4 45 - 73 % [facility] Imm Gran Pct Auto 0.2 0.0 - 0.4 % [facility] Lymphocytes Percent Auto 23.1 20 - 40 % [facility] Monocytes Percent Auto 5.4 2 - 11 % [facility] Eosinophils Percent Auto 0.7 0 - 4 % [facility] Basophils Percent Auto 0.2 0 - 2 % [facility] NRBC Pct Auto 0.0 0.0 - 0.2 /100WBC [facility] Neutrophils Absolute Auto 5.7 2.0 - 8.3 x10*3/uL [facility] Imm Gran Abs Auto 0.02 0.00 - 0.03 X10*3/uL [facility] Lymphocytes Absolute Auto 1.9 1.2 - 4.9 X10*3/uL [facility] Monocytes Absolute Auto 0.4 0.1 - 1.2 X10*3/uL [facility] Eosinophils Absolute Auto 0.1 0.0 - 0.4 X10*3/uL [facility] Basophils Absolute Auto 0.0 0.0 - 0.2 X10*3/uL [facility] NRBC Abs Auto 0.000 0.0 - 0.012 X10*3/uL [facility] 10/08/2024 1:12 PM EST 10/08/2024 1:23 PM EST us Generic External Data Provider LAB BLOOD ORDERAB LES Final Result [facility] [address] [place] [phone] documented in this encounter Visit Diagnoses Not on filedocumented in this encounter Additional Health Concerns Assessment Noted Time PHQ-9 Depression Total Score: 16 023 9:45 AM EST documented as of this encounter Care Teams Media Reconciliation Specialist Relationship Specialty Start Date End Date Margaret Alvarenga NP [address] [place] [phone] PCP - General Family Medicine 05/20/24 Caroline Nayak Electronic Engineering TechnicianAvionics System Engineer 05/23/24 documented as of this encounter
--- OUTSIDE RECORDS SUMMARY | 2024-10-08 17:33 | XMS_ITS | Encounter Summary ---
Author Organization [employer] Address [address] [facility] 7t [place] [address] Care Team Providers Care Private Household Worker Name Role Phone Margaret Alvarenga NP Primary Care Provider [phone] Reason for Visit * Reason Comments Med Refill Encounter Details Date Type Department Care Team ([facility] st Contact Info) Description 09/20/2024 Refill [facility] [address] [place] [address] Margaret Alvarenga NP [address] [place] [address] Anxiety Social History Tobacco Use Types Packs/Day Years [...] with others, in a hotel, in a correction, living outside on the street, on a [...] Description 10/13/2024 10:30 AM EST Office Visit [facility] [address] [place] [phone] Margaret Alvarenga NP [address] [place] [address] documented as of this encounter Visit Diagnoses Diagnosis Anxiety Anxiety state, unspecified documented in this encounter Additional Health Concerns Assessment Noted Time PHQ-9 Depression Total Score: 16 023 9:45 AM EST documented as of this encounter Care Teams Private Household Worker Relationship Specialty Start Date End Date Margarte Alvarenga NP [address] [place] [address] PCP - General Family Medicine 05/20/24 Caroline Nayak Electronics InstallerPalletizer 05/23/24 documented as of this encounter
--- OUTSIDE RECORDS SUMMARY | 2024-10-08 17:33 | XMS_ITS | Encounter Summary ---
Author Organization [employer] Address [address] [facility] 7t [place] [address] Care Team Providers Care Paste Up Worker Name Role Phone Margaret Alvarenga NP Primary Care Provider [phone] Reason for Visit * Reason Comments Pre-visit Planning SDOH unable to reach LVM Encounter Details Date Type Department Care Team ([facility] st Contact Info) Description 10/02/2024 Patient Outreach [facility] [address] [place] [address] Margaret Alvarenga NP [address] [facility] [place] [address] Pre-visit Planning (SDOH unable to reach LVM) Social History Tobacco Use Types Packs/Day Years [...] with others, in a hotel, in a long term, living outside on the street, on a [...] AM EDT documented as of this encounter Progress Notes * Anastacia Guzman - 10/02/2024 1:18 PM EST LESLIE Wayne placed outbound call to patient to complete pre-visit planning. No answer at this time. Patient name and were not confirmed. CC left voicemail requesting return call. Direct contactinformation provided. documented in this encounter Plan of Treatment Upcoming Encounters Date Type Department Care Team (Late st Contact Info) Description 10/13/2024 10:30 AM EST Office Visit [facility] [address] [place] [address] Margaret Alvarenga NP [address] [place] [address] documented as of this encounter Visit Diagnoses Not on filedocumented in this encounter Additional Health Concerns Assessment Noted Time PHQ-9 Depression Total Score: 16 023 9:45 AM EST documented as of this encounter Care Teams Paste Up Worker Relationship Specialty Start Date End Date Margaret Alvarenga NP [address] [place] [address] PCP - General Family Medicine 05/20/24 Caroline Nayak Retail Wireless Sales RepresentativeDrop Wire Operator 05/23/24 documented as of this encounter
--- OUTSIDE RECORDS SUMMARY | 2024-10-08 17:34 | XMS_ITS | Encounter Summary ---
Author Organization [facility] Address [address] [facility] 7t [place] [address] Care Team Providers Care Filling Hauler Name Role Phone Balbina SingletonP Primary Care Provider [phone] Margaret Alvarenga NP Primary Care Provider [phone] Encounter Details Date Type Department Care Team ([facility] st Contact Info) Description 12/04/2022 Orders Only [facility] [address] [place] [address] Balbina Singleton FNP [address] [place] [address] Other iron deficiency anemia (Primary Dx) Social History Tobacco Use Types Packs/Day Years Used Date Smoking Tobacco: Never Smokeless Tobacco: Never Alcohol Use Standard Drinks/Week Comments Not Currently 0 (1 standard drink = 0.6 oz pur e alcohol) Depression Answer Date Recorded Patient Health Questionnaire-9 Score 16 11/22/2022 Depression Answer Date Recorded Patient Health Questionnaire-2 Score 6 11/22/2022 Comments Unknown Sex and Gender Information Value Date Recorded Sex Assigned at Female 07/17/2022 10:19 AM EDT Legal Sex Female 10:19 AM EDT Gender Identity Female 07/17/2022 10:19 AM EDT Sexual Orientation Straight 07/17/2022 10 :19 AM EDT COVID-19 Exposure Response Date Recorded In the last 10 days, have yo u been in contact with someone who was confirmed or suspected to have Coronavirus/COVID-19? No / Unsure 11/22/2022 9:05 AM EST documented as of this encounter Plan of Treatment Upcoming Encounters Date Type Department Care Team (Late st Contact Info) Description 10/13/2024 10:30 AM EST Office Visit [facility] [address] [place], [place] [phone] Margaret Alvarenga NP [address] [place] [address] documented as of this encounter Procedures Procedure Name Priority Date/Time Associated Diagnosis Comments IRON, TIBC AND FERRITIN PANEL Routine 12/05/2022 10:00 AM EDT Other iron deficiency anemia documented in this encounter Results * (ABNORMAL) Iron, TIBC And Ferritin Panel (12/05/2022 10:00 AM EDT) Iron, Total 25(L) 40 - 190 mcg/dL [facility] [place] [facility] Iron Binding Capacity 350 250 - 450 mcg/dL (calc) [facility] [place] [facility] % Saturation 7(L) 16 - 45 % (calc) [facility] [place] [facility] Ferritin 4(L) 16 - 154 ng/mL [facility] [place] [facility] Blood Venous blood specimen / Unknown 12/05/2022 10:00 AM EDT 12/05/2022 10:01 AM EDT Narrative [facility] - 12/05/2022 8:07 PM EDT FASTING:NO FASTING: NO Balbina BUSTOS LAB BLOOD ORDERABLES Final Resu lt [facility] [address] [place] [phone] [facility] [place] [facility] [address] [place] [phone] documented in this encounter Visit Diagnoses Diagnosis Other iron deficiency anemia- Primary documented in this encounter Additional Health Concerns Assessment Noted Time PHQ-9 Depression Total Score: 16 11/22/ 023 9:45 AM EST documented as of this encounter Care Teams Filling Hauler Relationship Specialty Start Date End Date Balbina Singleton FNP [address] [place] [address] PCP - General Family Medicine 06/22/22 05/19/24 Margaret Alvarenga NP [address] [place] [address] PCP - General Family Medicine 05/20/24 Nadira Rivas Right Of Way ClearerSupervisor Salvage 02/14/24 05/22/24 Caroline Nayak Right Of Way ClearerSupervisor Salvage 05/23/24 documented as of this encounter
--- OUTSIDE RECORDS SUMMARY | 2024-10-08 17:34 | XMS_ITS | Encounter Summary ---
Author Organization [facility] Address [address] [place] [phone] Phone Care Team Providers Care Test Fixture Designer Name Role Phone Beena Gandhi MD Primary Care Provider Unavailabl e Encounter Details Date Type Department Care Team (Late st Contact Info) Description 08/17/2011 Documentation [facility] Family Medicine [address] [place] [address] Family Medicine, Physician [address] [place], [place] [phone] Social History Tobacco Use Types Packs/Day Years Used Date Smoking Tobacco: Never Assessed Comments Unknown Sex and Gender Information Value Date Recorded Sex Assigned at Not on file Legal Sex Female 4:40 PM EDT Gender Identity Not on file Sexual Orientation Not on file documented as of this encounter Plan of Treatment Not on file documented as of this encounter Visit Diagnoses Not on filedocumented in this encounter Care Teams Test Fixture Designer Relationship Specialty Start Date End Date Beena Gandhi MD PCP - General 04/27/17 documented as of this encounter
--- OUTSIDE RECORDS SUMMARY | 2024-10-08 17:34 | XMS_ITS | Clinical Summary ---
Author Organization [facility] Address [address] [place] [address] Phone Care Team Providers Care Risk Compliance Analyst Name Role Phone Beena Gandhi MD Primary Care Provider Unavailabl e Immunizations Name Administration Dates Next Due DTaP 5 12/07/2006, 4,01/30/2003,2002 ,2002 H1N1 12/06/2009,08/17/2009 Hep B, ped/adol 04/17/2003,01/30/2003,2002 Hib (PRP-T) 11/06/2003,01/30/2003,2002 ,2002 IPV 12/07/2006,04/17/2003,2002 ,2002 Influenza, injectable, trivalent 07/25/2004,08/17 MMR 07/31/2003 MMRV 12/07/2006 Pneumococcal Conjugate 11/06/2003,01/30/2003,,2002 Unknown Vaccine 07/25/2004 Varicella 07/31/2003 Family History Relation Name Status Comments Father Alive Father: Alive a nd well Mother Alive Mother: Asthma Other Family history of Seizure disorder, Family history of Asthma Social History Tobacco Use Types Packs/Day Years Used Date Smoking Tobacco: Never Assessed Comments Unknown Sex and Gender Information Value Date Recorded Sex Assigned at Not on file Legal Sex Female 4:40 PM EDT Gender Identity Not on file Sexual Orientation Not on file Last Filed Vital Signs Vital Sign Reading Time Taken Comments Blood Pressure 90/54 12/01/2010 12:00 AM EDT Pulse 104 12/01/2010 12:00 AM EDT Temperature 37.5 ??C (99.5 ??F) 08/07/2011 12:[address] Respiratory Rate - - Oxygen Saturation - - Inhaled Oxygen Concentration - - Weight 27.4 kg (60 lb 8 oz) 08/07/2011 12:00 AM EST Height 126.5 cm (4' 1.8 ) 12/01/2010 12:00 AM ED T Body Mass Index - - Plan of Treatment Health Maintenance Due Date Last Done Comments DTaP,Tdap,and Td Vaccines (6 - Tdap) 2013 12/07/2006, 02/12/2004, 01/30/2003, Additional history exists HPV Vaccines (1 - 3-dose series) 2017 Men B Vaccine (1 of 2 - Standard) 2018 Influenza Vaccines (#1) 2024 07/25/2004, 09/04 COVID-19 Vaccine ( season) 2024 Hepatitis B Vaccines Completed 04/17/2003, 01/30/2003, 2002 HIB Vaccines Completed 11/06/2003, 01/15, 2002, Additional history exists Pneumococcal Vaccine Completed 11/06/2003, 01/30/2003, 2002, Additional history exists IPV Vaccines Completed 12/07/2006, 08/0 09/2002, 2002, Additional history exists MMR Vaccines Completed 12/07/2006, 07/31/2003 Varicella Vaccines Completed 12/07/2006, 07/31/2003 Hepatitis A Vaccines Aged Out No long er eligible based on patient's age to complete this topic Meningococcal Vaccine Aged Out No nydia nydia eligible based on patient's age to complete this topic Care Teams Risk Compliance Analyst Relationship Specialty Start Date End Date Beena Gandhi MD PCP - General 04/27/17
--- OUTSIDE RECORDS SUMMARY | 2024-10-08 17:34 | XMS_ITS | Encounter Summary ---
Author Organization [employer] Address [address] [facility] 7t [place] [address] Care Team Providers Care First Mate Name Role Phone Margaret Alvarenga NP Primary Care Provider [phone] Reason for Visit * Reason Onset Date Comments Med Refill 06/24/2024 Encounter Details Date Type Department Care Team (Late st Contact Info) Description 06/24/2024 Refill [facility] [address] [place] [address] Orestes Spencer MD [address] [place] [address] Social History Tobacco Use Types Packs/Day Years [...] with others, in a hotel, in a fci, living outside on the street, on a [...] Description 10/13/2024 10:30 AM EST Office Visit [facility] [address] [place] [address] Margaret Alvarenga NP [address] [place] [address] documented as of this encounter Visit Diagnoses Not on filedocumented in this encounter Additional Health Concerns Assessment Noted Time PHQ-9 Depression Total Score: 16 023 9:45 AM EST documented as of this encounter Care Teams First Mate Relationship Specialty Start Date End Date Margaret Alvarenga NP [address] [place] [address] PCP - General Family Medicine 05/20/24 Caroline Nayak Flatlock Sewing Machine OperatorTechnology Integration Specialist 05/23/24 documented as of this encounter
--- OUTSIDE RECORDS SUMMARY | 2024-10-08 17:34 | XMS_ITS | Encounter Summary ---
Author Organization [employer] Address [address] [facility] [facility] [address] [place] [address] Care Team Providers Care Travel Pt Name Role Phone Margaret Alvarenga NP Primary Care Provider [phone] Reason for Visit * Reason Onset Date Comments Med Refill 06/24/2024 Encounter Details Date Type Department Care Team (Late st Contact Info) Description 06/24/2024 Refill [facility] [address] [place] [address] Diogenes Shay MD [address] [place] [address] Acute cystitis with hematuria Social History Tobacco Use Types Packs/Day Years [...] with others, in a hotel, in a intermediate, living outside on the street, on a [...] Description 10/13/2024 10:30 AM EST Office Visit [facility] [address] [place] [phone] Margaret Alvarenga NP [address] [place] [address] documented as of this encounter Visit Diagnoses Diagnosis Acute cystitis with hematuria documented in this encounter Additional Health Concerns Assessment Noted Time PHQ-9 Depression Total Score: 16 023 9:45 AM EST documented as of this encounter Care Teams Travel Pt Relationship Specialty Start Date End Date Margaret Alvarenga NP [address] [place] [address] PCP - General Family Medicine 05/20/24 Caroline Nayak Aquarium SpecialistEhs Teacher 05/23/24 documented as of this encounter
--- OUTSIDE RECORDS SUMMARY | 2024-10-08 17:34 | XMS_ITS | Encounter Summary ---
Author Organization [facility] Address [address] [place] [phone] Phone Care Team Providers Care Proposal Engineer Name Role Phone Beena Gandhi MD Primary Care Provider Unavailabl e Encounter Details Date Type Department Care Team (Late st Contact Info) Description 03/09/2011 Documentation [facility] Family Medicine [address] [place] [address] Family Medicine, Physician [address] [place], [place] [id number] Social History Tobacco Use Types Packs/Day Years [...] on filedocumented in this encounter Care Teams Proposal Engineer Relationship Specialty Start Date End Date Beena Gandhi MD PCP - General 04/27/17 documented as of this encounter
--- OUTSIDE RECORDS SUMMARY | 2024-10-08 17:34 | XMS_ITS | Encounter Summary ---
Author Organization [employer] Address [address] [facility] [address]t [place] [address] Care Team Providers Care Intel Recruiter Name Role Phone Balbina SingletonP Primary Care Provider [phone] Margaret Alvarenga NP Primary Care Provider [phone] Reason for Visit * Reason Onset Date Comments Durable Medical Equipment 02/05/2023 Encounter Details Date Type Department Care Team ([facility] st Contact Info) Description 02/05/2023 Telephone [facility] [address] [place] [address] Balbina Singleton FNP [address] [place], [place] [phone] Durable Medical Equipment Social History Tobacco Use Types Packs/Day Years [...] suspected to have Coronavirus/COVID-19? No / Unsure 01/18/2023 12:16 PM EDT documented as of this encounter Miscellaneous Notes * Telephone Encounter - Carmencita Juan - 02/05/2023 2:21 PM EDT TC to [facility] and informed her I will check status of nebulizer with [facility] and that MH doesn't cover humidifiers. * Telephone Encounter - Kimberli Stewart - 02/05/2023 12:55 PM EDT Tc from [facility] with [facility] requesting a humidifier Any questions please contact [facility]lette at [phone] documented in this encounter Plan of Treatment Upcoming Encounters Date Type Department Care Team (Late st Contact Info) Description 10/13/2024 10:30 AM EST Office Visit [facility] [address] [place] [address] Margaret Alvarenga NP [address] [place] [address] documented as of this encounter Visit Diagnoses Not on filedocumented in this encounter Additional Health Concerns Assessment Noted Time PHQ-9 Depression Total Score: 16 023 9:45 AM EST documented as of this encounter Care Teams Intel Recruiter Relationship Specialty Start Date End Date Balbina Singleton FNP [address] [place] [address] PCP - General Family Medicine 06/22/22 05/19/24 Margaret Alvarenga NP [address] [place] [address] PCP - General Family Medicine 05/20/24 Nadira Rivas Machine Try Out SetterArt Dealer 02/14/24 05/22/24 Caroline Nayak Machine Try Out SetterArt Dealer 05/23/24 documented as of this encounter
--- OUTSIDE RECORDS SUMMARY | 2024-10-08 17:34 | XMS_ITS | Encounter Summary ---
Author Organization [employer] [facility] Address [address] [place] [address] 7t [place] [address] Care Team Providers Care Laborer Powerhouse Name Role Phone Balbina Singleton Primary Care Provider [phone] Margaret Alvarenga NP Primary Care Provider [phone] Encounter Details Date Type Department Care Team (Late st Contact Info) Description 12/25/2022 Orders Only [facility] [address] [place] [address] Balbina Singleton FNP [address] [place] [address] Social History Tobacco Use Types Packs/Day Years [...] AM EST Office Visit [facility] [address] [place] [address] Margaret Alvarenga NP [address] [place] [address] documented as of this encounter Visit Diagnoses Not on filedocumented in this encounter Additional Health Concerns Assessment Noted Time PHQ-9 Depression Total Score: 16 023 9:45 AM EST documented as of this encounter Care Teams Laborer Powerhouse Relationship Specialty Start Date End Date Balbina Singleton FNP [address] [place] [address] PCP - General Family Medicine 06/22/22 05/19/24 Margaret Alvarenga NP [address] [place] [address] PCP - General Family Medicine 05/20/24 Nadira Rivas Ppap CoordinatorSorting And Folding Supervisor 02/14/24 05/22/24 Caroline Nayak Ppap CoordinatorSorting And Folding Supervisor 05/23/24 documented as of this encounter
--- OUTSIDE RECORDS SUMMARY | 2024-10-08 17:34 | XMS_ITS | Encounter Summary ---
Author Organization [facility] Address [address] [place] [address] Phone Care Team Providers Care Audio Visual Facilities Engineer Name Role Phone Beena Gandhi MD Primary Care Provider Unavailabl e Encounter Details Date Type Department Care Team (Late st Contact Info) Description 04/08/2012 Documentation [facility] [address] [place] [address] Family Medicine, Physician [address] [place], [place] [phone] Social History Tobacco Use Types Packs/Day Years [...] on filedocumented in this encounter Care Teams Audio Visual Facilities Engineer Relationship Specialty Start Date End Date Beena Gandhi MD PCP - General 04/27/17 documented as of this encounter
--- OUTSIDE RECORDS SUMMARY | 2024-10-08 17:34 | XMS_ITS | Encounter Summary ---
Author Organization [employer] Address [address] [facility] 7t [place] [address] Care Team Providers Care Neon Pumper Name Role Phone Blabina SingletonP Primary Care Provider [phone] Margaret Alvarenga NP Primary Care Provider [phone] Reason for Visit * Reason Comments Med Refill Encounter Details Date Type Department Care Team (Late st Contact Info) Description 11/27/2023 Refill [facility] [address] [place] [address] Orestes Spencer MD [address] [place] [address] Social History Tobacco Use Types Packs/Day Years [...] with others, in a hotel, in a residential, living outside on the street, on a [...] Description 10/13/2024 10:30 AM EST Office Visit [facility] [address] [place] [address] Margaret Alvarenga NP [address] [place] [address] documented as of this encounter Visit Diagnoses Not on filedocumented in this encounter Additional Health Concerns Assessment Noted Time PHQ-9 Depression Total Score: 16 023 9:45 AM EST documented as of this encounter Care Teams Neon Pumper Relationship Specialty Start Date End Date Balbina Singleton FNP [address] [place] [address] PCP - General Family Medicine 06/22/22 05/19/24 Margaret Alvarenga NP [address] [place] [address] PCP - General Family Medicine 05/20/24 Nadira Rivas SkatesmanBath Tester 02/14/24 05/22/24 Caroline Nayak SkatesmanBath Tester 05/23/24 documented as of this encounter
--- OUTSIDE RECORDS SUMMARY | 2024-10-08 17:34 | XMS_ITS | Encounter Summary ---
Author Organization [employer] Address [address] [facility] [address] [place] [address] Care Team Providers Care Financial Investigator Name Role Phone Balbina SingletonP Primary Care Provider [phone] Margaret Alvarenga NP Primary Care Provider [phone] Reason for Visit * Reason Comments Med Refill Encounter Details Date Type Department Care Team (Late st Contact Info) Description 09/12/2023 Refill [facility] [address] [place] [address] Deidre Stearns CNM [address] [place] [address] Social History Tobacco Use Types Packs/Day Years [...] with others, in a hotel, in a detention, living outside on the street, on a [...] Description 10/13/2024 10:30 AM EST Office Visit [facility] [address] [place] [address] Margaret Alvarenga NP [address] [place] [address] documented as of this encounter Visit Diagnoses Not on filedocumented in this encounter Additional Health Concerns Assessment Noted Time PHQ-9 Depression Total Score: 16 023 9:45 AM EST documented as of this encounter Care Teams Financial Investigator Relationship Specialty Start Date End Date Balbina Singleton FNP [address] [place] [address] PCP - General Family Medicine 06/22/22 05/19/24 Margaret Alvarenga NP [address] [place] [address] PCP - General Family Medicine 05/20/24 Nadira Rivas Narrow Fabric Loom FixerSoda Worker 02/14/24 05/22/24 Caroline Nayak Narrow Fabric Loom FixerSoda Worker 05/23/24 documented as of this encounter
--- OUTSIDE RECORDS SUMMARY | 2024-10-08 17:34 | XMS_ITS | Encounter Summary ---
Author Organization [facility] Address [address] [place] [address] Phone Care Team Providers Care Relief Manager Name Role Phone Beena Gandhi MD Primary Care Provider Unavailabl e Encounter Details Date Type Department Care Team (Late st Contact Info) Description 05/03/2017 Conversion Encounter [facility] - [address] [address] Social History Tobacco Use Types Packs/Day Years [...] on filedocumented in this encounter Care Teams Relief Manager Relationship Specialty Start Date End Date Beena Gandhi MD PCP - General 04/27/17 documented as of this encounter
--- OUTSIDE RECORDS SUMMARY | 2024-10-08 17:34 | XMS_ITS | Encounter Summary ---
Author Organization [employer] Address [address] [facility] [address] [place] [address] Care Team Providers Care Social Security Benefits Interviewer Name Role Phone Margaret Alvarenga NP Primary Care Provider [phone] Reason for Visit * Reason Onset Date Comments Med Refill 06/24/2024 Encounter Details Date Type Department Care Team (Late st Contact Info) Description 06/24/2024 Refill [facility] [address] [place] [address] Deidre Stearns CNM [address] [place] [address] Social History Tobacco Use Types Packs/Day Years [...] with others, in a hotel, in a jail, living outside on the street, on a [...] Description 10/13/2024 10:30 AM EST Office Visit [facility] [address] [place] [address] Margaret Alvarenga NP [address] [place] [address] documented as of this encounter Visit Diagnoses Not on filedocumented in this encounter Additional Health Concerns Assessment Noted Time PHQ-9 Depression Total Score: 16 023 9:45 AM EST documented as of this encounter Care Teams Social Security Benefits Interviewer Relationship Specialty Start Date End Date Margaret Alvarenga NP [address] [place] [address] PCP - General Family Medicine 05/20/24 Caroline Nayak Health And Physical Education TeacherWax Specialist 05/23/24 documented as of this encounter
== END 2024-10-08 17:12 | disposition home or self-care (01) ==
PROVIDERS: Registered Nurse Emergency; Emergency Provider Emergency Medicine Emergency Medical Services
DX: O26.91 Pregnancy related conditions, unspecified, first trimester (principal); R10.2 Pelvic and perineal pain; Z3A.01 Less than 8 weeks gestation of pregnancy; Z79.899 Other long term (current) drug therapy
CPT/HCPCS: 36415; 76801; 76817; 80053; 81003; 84702; 85025; 99283; 99284

== ENCOUNTER 2024-11-11 13:26 | Emergency (ER) | payer MEDICAID, SELFPAY ==
--- NOTE | ~2024-11-11 | US_ITS ---
CLINICAL HISTORY: 10wks with abd pain, vomiting Ultrasound OB. COMPARISON: None Technique: Real time transabdominal sonographic imaging was performed by the director of family service center. Multiple communications representative static images were saved for review. FINDINGS: Estimated gestational age (EGA) by today's ultrasound: 10 weeks 3 days Estimated date of delivery (LELIA) by today's ultrasound: 06/06/2025 Estimated gestational age by LMP: 10 weeks 0 days, congruent Single intrauterine . The secondary yolk sac is present and measures 5 mm. No subchorionic hemorrhage identified. [place] rump length (CRL): 3.46 cm, 10 weeks 3 days. heart rate (FHR): 172 bpm Right ovary appears normal and measures 2.2 x 1.3 x 1.7 cm. No right adnexal mass identified. Normal appearing physiologic follicles/cysts. Left ovary appears normal and measures 1.8 x 1.8 x 1.5 cm. No left adnexal mass identified. Normal appearing physiologic follicles/cysts. No free fluid identified in the pelvic cul-de-sac. IMPRESSION: 1. Single living intrauterine gestation estimated at 10 weeks 3 days by today's ultrasound criteria. 2. No evidence of ovarian torsion. This document has been electronically signed by: Stevan Forde MD on 11/11/2024 20:08:08
[2024-11-11 14:07] VITALS: BP 104/66; PULSE 87; RESP 18; TEMP 36.8; O2SAT 99; BMI 32.8
--- NOTE | 2024-11-11 14:09 | ED_ITS ---
HPI - General Adult General Chief complaint: Nausea/Vomiting/Diarrhea Stated complaint: preg+, cant keep anything down, vomiting Time Seen by Provider: 11/11/24 18:41 Source: patient Mode of arrival: ambulatory Limitations: no limitations History of Present Illness ED Provider: DR. Crisostomo HPI narrative: 24-year-old female about 10 weeks came in for evaluation after having vomiting all day today then complaining abdominal pain, no vaginal bleed or discharge. Declined any abdominal trauma, no sick contacts. Patient is complaining of generalized body ache, sneezing, runny nose. Related Data Previous Rx's ?Medication ?Instructions ?Recorded ondansetron HCl 4 mg tablet 4 mg PO Q8H PRN nausea and 06/29/20 (Zofran) vomiting #10 tabs albuterol sulfate 90 mcg/actuation 2 puff inhalation Q4-6H PRN 01/24/21 aerosol inhaler shortness of breath or wheezing #6.7 grams benzonatate 100 mg capsule 100 mg PO TID PRN cough #14 caps 01/24/21 (Tesaric Mohr) fluticasone propionate 50 2 spray intranasal DAILY #16 grams 01/24/21 mcg/actuation nasal spray,suspension (Flonase Allergy Relief) prednisone 20 mg tablet 40 mg (2 x 20 mg) PO DAILY 5 days 01/24/21 #10 tabs albuterol sulfate 90 mcg/actuation 2 puff inhalation QID PRN 02/01/21 aerosol inhaler shortness of breath or wheezing #8.5 grams ondansetron HCl 4 mg tablet 4 mg PO Q8H PRN nausea and 02/01/21 (Zofran) vomiting #10 tabs pantoprazole 40 mg tablet,delayed 40 mg PO DAILY #20 tabs 02/01/21 release (Protonix) erythromycin 5 mg/gram (0.5 %) eye 0.5 inch ophthalmic (eye) TID #3.5 04/07/21 ointment grams hydrocodone 5 mg-acetaminophen 325 1 tab PO Q6H PRN pain #12 tabs 04/08/21 mg tablet ondansetron 4 mg disintegrating 4 mg PO Q8H PRN nausea and 04/08/21 tablet vomiting #20 tabs cefuroxime axetil 250 mg tablet 250 mg PO BID #14 tabs 11/25/23 cephalexin 500 mg capsule 500 mg PO TID #42 caps 06/13/24 vits no.10-ferrous 1 tab PO DAILY #30 tabs 10/08/24 fumarate 65 mg iron-folic acid 1 mg tablet Allergies Allergy/AdvReac Type Severity Reaction Status Date / Time No Known Allergies Allergy Verified 11/11/24 14:09 Review of Systems 2 Review of Systems: All other systems are reviewed and are negative Constitutional: Reports as per HPI and Reports no additional constitutional complaints Eyes: Reports as per HPI and Reports no additional eye complaints Reports system reviewed and no additional complaints, except as documented Cardiovascular: Reports as per HPI and Reports no additional cardiovascular complaints Respiratory: Reports as per HPI and Reports no additional respiratory complaints Gastrointestinal: Reports as per HPI and Reports no additional gastrointestinal complaints Genitourinary: Reports no additional female genitourinary complaints Musculoskeletal: Reports no additional musculoskeletal complaints Skin/Breast: Reports system reviewed and no additional complaints, except as docu Psychiatric: Reports no additional psychiatric complaints Endocrine: Reports no additional endocrine complaints Hematologic/Lymphatic: Reports no additional hematologic/lymphatic complaints Allergic/Immunologic: Reports no additional allergic/immunologic complaints Reports system reviewed and no additional complaints, except as documented and Reports Abnormal speech present [facility] Past Medical History Medical History Asthma Social History Social History Alcohol intake: never Advance Directives: No Advance Directives Information Provided: No Do you have a plan to hurt others: No Plan Physical Exam ED Vital Signs: Vital Signs - 24 hr 11/11/24 14:07 11/11/24 16:23 11/11/24 18:35 Temperature 98.2 F 97.1 F 98.6 F Pulse Rate 87 77 94 Respiratory Rate 18 18 20 Blood Pressure 104/66 113/66 115/62 Pulse Oximetry 99 100 100 Oxygen Delivery Method Room Air Room Air Room Air 11/11/24 20:03 Temperature 98.5 F Pulse Rate 90 Respiratory Rate 20 Blood Pressure 118/64 Pulse Oximetry 100 Oxygen Delivery Method Room Air BMI result Body Mass Index 32.8 Vital signs have been reviewed and appear to be correct. Blood pressure elevated. Heart rate normal. Respiratory rate normal. Temperature normal. Oxygen saturation normal. Appearance: Alert. Oriented X3. No acute distress. Head: Normal external exam. Normocephalic. Atraumatic. No Stark signs noted. No raccoon eyes noted Eyes: PERRLA. EOMI. Conjunctiva and sclera normal. Eyelids normal. ENT: TM's Normal. Pharynx normal. Uvula midline. Moist mucous membranes. No trismus noted. No drooling noted. No muffled voice noted. Neck: Normal inspection. Neck supple. FROM. No adenopathy. Thyroid Normal. No meningeal signs. No neck mass noted. CVS: Normal heart rate and rhythm. Heart sound normal. No murmurs noted. Pulses normal throughout. Respiratory: No respiratory distress. Painless inspiration. Breath sounds normal. No wheezes/rales/rhonchi noted. Chest nontender. No accessory muscle usage noted or decreased air movement noted. Abdomen: Soft and nontender. Bowel sounds normal in all 4 quadrants. No distention noted. No organomegaly noted. No visible injury noted. Back: No CVA tenderness. Full range of motion noted. Skin: Skin warm and dry. Normal skin color. Normal skin turgor. No rashes/lesions/lacerations noted. Extremities: No lower extremity edema. Extremities exhibit normal range of motion. Extremities nontender. Neuro: Oriented X 3. Cranial nerve exam: II-XII are grossly intact No motor deficit. No sensory deficit. Reflexes normal. Course Course Course Narrative: This is a rapid medical exam performed by Yovana Rodriguez NP: Additional HPI, ROS, PE not included below will be deferred to primary provider. Patient is a 24-year-old 10-week female presenting with complaint of nausea and vomiting for the past 3 days, reports some blood tinged emesis. States has been unable to tolerate any food or drink PO. Also feeling hot, nasal congestion. Denies vaginal bleeding or other vaginal discharge. Did not call OB regarding symptoms. Getting care at [place]. Urinary frequency/incontinence. Plan: Labs, viral swabs Reevaluation(s) Reevaluation #1: 1st trimester with positive COVID 19 infection. Hyperemesis gravidarum and COVID-19 infection causing the patient to have nausea and vomiting, patient received IV fluid and Zofran in the ED now feels better and able to tolerate p.o. intake, ultrasound shows normal fetus at 10 weeks gestational age. Patient will be discharged home on Zofran and instructions to drink plenty of fluids. To follow-up with her OBGYN. Ultrasound shows viable at 10 weeks, no vaginal bleeding. Blood type is A positive. Time: 20:45 Medications Administered Discontinued Medications Generic Name Dose Route Start Last Admin Trade Name Freq PRN Reason Stop Dose Admin Sodium Chloride 1,000 mls @ 999 mls/hr 11/11/24 18:49 11/11/24 19:37 Ns IV 11/11/24 19:49 999 mls/hr .Q1H1M ONE Administration Ondansetron HCl 4 mg 11/11/24 18:49 11/11/24 20:04 Ondansetron Hcl 4 Mg/2 Ml Vial IVPUSH 11/11/24 18:50 4 mg ONCE ONE Administration Medical Decision Making Differential Diagnosis Differential Diagnoses: The differential diagnosis associated with the presentation includes ( hyperemesis gravidarum, COVID-19 infection, influenza a infection, RSV, dehydration, electrolyte derangement, stable anemia.) Admission/Observation Consideration of admission/observation: Escalation of care including admission/observation considered Lab Data MDM Lab Attestation statement: I reviewed the patient's lab results. 11/11/24 19:33 11/11/24 19:33 Labs: Lab Results 11/11/24 11/11/24 Range/Units 14:57 19:33 WBC 6.7 (4.8-10.8) X10*3/uL RBC 4.61 (4.20-5.50) X10*6/uL Hgb 12.3 (12.0-16.0) g/dl Hct 36.8 L (37.0-47.0) % MCV 79.8 L (80.0-98.0) fL MCH 26.7 L (27.0-33.0) pg MCHC 33.4 (31.0-35.0) g/dl RDW 15.2 (11.0-16.0) % Plt Count 210 D (160-400) X10*3/uL MPV 10.8 (9.4-12.3) fL Immature Gran % (Auto) 0.1 (0.0-0.4) % Neut % (Auto) 69.9 (45-73) % Lymph % (Auto) 21.3 (20-40) % [place] % (Auto) 8.5 (2-11) % Eos % (Auto) 0.1 (0-4) % Baso % (Auto) 0.1 (0-2) % Lymph # (Auto) 1.4 (1.2-4.9) X10*3/uL [place] # (Auto) 0.6 (0.1-1.2) X10*3/uL Eos # (Auto) 0.0 (0.0-0.4) X10*3/uL Baso # (Auto) 0.0 (0.0-0.2) X10*3/uL Abs Immat Gran (auto) 0.01 (0.00-0.03) X10*3/uL Absolute Neuts (auto) 4.7 (2.0-8.3) x10*3/uL Absolute Nucleated RBC 0.000 (0.0-0.012) X10*3/uL Nucleated RBC % (auto) 0.0 (0.0-0.2) /100WBC Sodium 135 (135-145) mmol/L Potassium 3.8 (3.3-5.1) mmol/L Chloride 106 (96-108) mmol/L Carbon Dioxide 19 L (22-29) mmol/L Anion Gap 14 (12-20) BUN 5 L (9-16) mg/dL Creatinine 0.53 (0.5-1.4) mg/dL Estim Creat Clear Calc 170.9 Estimated GFR > 60 Random Glucose 82 (60-115) mg/dL Calcium 9.2 (8.4-10.2) mg/dL Total Bilirubin 0.4 (0.0-1.0) mg/dL Direct Bilirubin 0.2 (0.0-0.5) mg/dL AST 19 (5-31) U/L ALT 18 (0-31) U/L Alkaline Phosphatase 64 (39-117) U/L Total Protein 7.6 (6.5-8.0) g/dL Albumin 4.1 (3.5-5.0) g/dL Lipase 13 (8-78) U/L Influenza Type A (PCR) NEGATIVE (Negative) Influenza Type B (PCR) NEGATIVE (Negative) RSV RNA Qual (PCR) NEGATIVE (Negative) SARS-CoV-2 RNA (RT-PCR) POSITIVE A (Negative) S. pyogenes GrpA LIBORIO Negative (Negative) Blood Type A Positive Independent Interpretation I performed an independent interpretation of an: Ultrasound ( obstetrical ultrasound:1. Single living intrauterine gestation estimated at 10 weeks 3 days by today's ultrasound criteria. 2. No evidence of ovarian torsion.) Radiology Impression Discussion of test interpretation with radiology: I have reviewed the radiologist's reading. Discharge Plan Discharge Clinical Impression: Hyperemesis gravidarum, COVID-19 virus infection Patient Disposition: Home, Self-Care Instructions: Hyperemesis Gravidarum (ED) Prescriptions: No Action ondansetron HCl [Zofran] 4 mg tablet 4 mg PO Q8H PRN (Reason: nausea and vomiting) Qty: 10 0RF albuterol sulfate 90 mcg/actuation HFA aerosol inhaler 2 puff inhalation Q4-6H PRN (Reason: shortness of breath or wheezing) Qty: 6.7 0RF prednisone 20 mg tablet 40 mg PO DAILY 5 Days Qty: 10 0RF benzonatate [Tessalon Perles] 100 mg capsule 100 mg PO TID PRN (Reason: cough) Qty: 14 0RF fluticasone propionate [Flonase Allergy Relief] 50 mcg/actuation spray,suspension 2 spray intranasal DAILY Qty: 16 0RF Rx Instructions: administer into each nostril albuterol sulfate 90 mcg/actuation HFA aerosol inhaler 2 puff inhalation QID PRN (Reason: shortness of breath or wheezing) Qty: 8.5 0RF ondansetron HCl [Zofran] 4 mg tablet 4 mg PO Q8H PRN (Reason: nausea and vomiting) Qty: 10 0RF pantoprazole [Protonix] 40 mg tablet,delayed release (DR/EC) 40 mg PO DAILY Qty: 20 0RF erythromycin 5 mg/gram (0.5 %) ointment 0.5 inch ophthalmic (eye) TID Qty: 3.5 0RF hydrocodone-acetaminophen 5-325 mg tablet 1 tab PO Q6H PRN (Reason: pain) Qty: 12 0RF ondansetron 4 mg tablet,disintegrating 4 mg PO Q8H PRN (Reason: nausea and vomiting) Qty: 20 0RF cefuroxime axetil 250 mg tablet 250 mg PO BID Qty: 14 0RF cephalexin 500 mg capsule 500 mg PO TID Qty: 42 0RF vit 10-iron fum-folic 65-1 mg tablet 1 tab PO DAILY Qty: 30 0RF Referrals: [place],[facility] [Primary Care Provider] - Print Language: [place]
[2024-11-11 15:18] LABS: IDNOW Serial# 6674DD1D; Strep A Nucleic Acid Negative (Negative)
[2024-11-11 15:51] LABS: Influenza A PCR NEGATIVE (Negative); Influenza B PCR NEGATIVE (Negative); Resp Syncy Virus RNA Qual PCR NEGATIVE (Negative); SARS COV2 PCR INHOUSE POSITIVE (Negative)
[2024-11-11 16:23] VITALS: BP 113/66; PULSE 77; RESP 18; TEMP 36.2; O2SAT 100
[2024-11-11 18:35] VITALS: BP 115/62; PULSE 94; RESP 20; TEMP 37; O2SAT 100
--- OUTSIDE RECORDS SUMMARY | 2024-11-11 18:48 | XMS_ITS | Clinical Summary ---
Author Organization [employer] Address [address] [facility] [address] [place] [address] Care Team Providers Care Cinnamon Grinder Name Role Phone Margaret Alvarenga NP Primary Care Provider [phone] [phone] Active Allergy Reactions Criticality Noted Date Comments Apple Juice 10/13/2024 Green apples cause throat itching Medications ferrous gluconate (Fergon) 324 (38 Fe) MG [...] NEEDED FOR ANXIETY OR ALLERGIES 90 capsule Active multivitamin () 27-0.8 MG tabletIndication s:Less than 8 weeks gestation of Take 1 tablet by mouth Once per day. 30 tablet 3 025 2024 Active calcium carbonate (Tums) 500 MG chewable tabletIndication s:Heartburn during in first trimester Chew 1 tablet (500 mg) if needed each day for indigestion or heartburn. 30 tablet 2 025 2025 Active Drospirenone (Slynd) 4 MG tablet Take 1 tablet by mouth Once per day. 28 tablet 11 024 2024 Discontinued(M ed list cleanup (will not trigger notification to Pharmacy)) Active Problems Problem Noted Date Diagnosed Date Encounter to establish care 10/16/2024 Assessment & Plan (10/16/2024 11:35 AM EST): -patient is new this provider -patient's personal medical, surgical, and medication histories reviewed along with family hx -routine health maintenance discussed -suggested she complete previously ordered STI screening labs, and outstanding immunizations, however she would like to wait until she establishes with OB Heartburn during in first trimester Assessment & Plan (10/16/2024 11:26 AM EST): -GERD teaching completed -patient education provided through my chart and AVS -rx'ed tums -return to clinic with worsening symptoms Less than 8 weeks gestation of Assessment & Plan (10/16/2024 11:32 AM EST): - confirmed via US on 10/08/24 -patient reports slight disbelief of the news, but is excited and plans to keep the -dietary and physical recommendations as it pertains to discussed. She is advised to increase fluid intake as well -current medications reviewed and advised discontinuation of hydroxyzine, and sumatriptan at this stage in , rather take tylenol as needed headaches. May continue singular for asthma control, xochitl and fluticasone as needed -provided additional refills of vitamins -referral for OB placed Moderate persistent asthma without complication 01/12/2023 Depressive disorder 01/12/2023 Anxiety 01/12/2023 Astigmatism 05/30/2017 Allergic rhinitis 03/22/2016 Developmental academic disorder 01/01/2015 Comments Yes Encounters Date Type Department Care Team Description 11/11/2024 Orders Only GENERIC EXTERNAL DATA DEPARTMENT Provider, Generic External Data 10/16/2024 Telephone [facility] [address] [place] [phone] Rosie Liu RN 10/13/2024 10:30 AM EST Office Visit [facility] [address] [place] [phone] Margaret Alvarenga NP Less than 8 weeks gestation of (Primary Dx); Encounter to establish care; Heartburn during in first trimester 10/13/2024 Travel 10/10/2024 Telephone [facility] [address] [place] [address] Marciano Villalta MA chartprep 10/08/2024 Orders Only GENERIC EXTERNAL DATA DEPARTMENT Provider, Generic External Data 10/02/2024 Patient Outreach [facility] [address] [place] [address] Margaret Alvarenga NP Pre-visit Planning ([facility] unable to reach LVM) 09/20/2024 Refill [facility] [address] [place] [address] Margaret Alvarenga NP Anxiety from Last 3 Months Immunizations Name Administration [...] 12/07/2006 Meningococcal MCV4P ACYW-135 05/28/2020,01/02/20 15 Novel Ksfhwhvos-[id number], all formulations 12/06/2009,08/17/2009 Pneumococcal Conjugate PCV 7 11/06/2003, 01/30/2003,2002,10/03 Tdap 01/01/2015 Varicella 07/31/2003 Family History Medical History Relation Name Comments Cancer Father's Brother Dementia Maternal Grandfather Asthma Mother OCD Mother Thyroid disease Mother Relation Name Status Comments Father's Brother Maternal Grandfather Mother Social History Tobacco Use Types Packs/Day Years Used Date Smoking Tobacco: Never Smokeless Tobacco: Never Tobacco Cessation:Counseling Given: Not Answered Alcohol Use Standard Drinks/Week Comments Not Currently 0 (1 standard drink = 0.6 oz pur e alcohol) Depression Answer Date Recorded Patient Health Questionnaire-9 Score 3 10/13/2024 Patient Health Questionnaire-9 Score 3 10/13/2024 Last PHQ-9: Questionnaire Data Not on file 0 10/13/2024 Housing Stability Answer Date Recorded What is your housing situation today? I have paty magallon 10/13/[address] you li ve. Do you have problems with any of the following? None of the above 10/13/2024 Food Insecurity Answer Date Recorded Within the past 12 months, y ou worried that your food would run out before you got money to buy more: Sometimes True 2024 Within the past 12 months,th e food you bought just didn't last and you didn't have enough money to get more: Sometimes True 10/13/2024 Transportation Answer Date Recorded In the past 12 months, has l ack of transportation kept you from medical appts, meetings, work or from getting things needed for daily living? Yes, it has kept me from medical appointments or getting medications. 10/13/2024 Utilities Answer Date Recorded In the past 12 months, has t he electric, gas, oil or water company threatened to shut off services in your home? No 10/13/2024 Depression Answer Date Recorded Patient Health Questionnaire-2 Score 1 10/13/2024 Internet Access Answer Date Recorded Internet Access Q1 No 10/13/2024 Internet Access Q2 Not on file 10/13/2024 Comments Yes Sex and Gender Information Value Date Recorded Sex Assigned at Female 07/17/2022 10:19 AM EDT Legal Sex Female 10:19 AM EDT Gender Identity Female 07/17/2022 10:19 AM EDT Sexual Orientation Straight 07/17/2022 10 :19 AM EDT Last Filed Vital Signs Vital Sign Reading Time Taken Comments Blood Pressure 119/68 10/13/2024 11:09 AM EST Pulse 102 10/13/2024 11:09 AM EST Temperature 37 ??C (98.6 ??F) 10/13/2024 11:09 AM EST Respiratory Rate 22 10/13/2024 11:09 AM EST Oxygen Saturation 99% 10/13/2024 11:09 AM EST Inhaled Oxygen Concentration - - Weight 84.8 kg (187 lb) 10/13/2024 11:09 AM EST Height 160 cm (5' 3 ) 10/13/2024 11:09 AM EST Body Mass Index 33.13 10/13/2024 11:09 AM EST Plan of Treatment Health Maintenance Due Date Last Done Comments Pneumococcal Vaccine: Pediatrics (0 to 5 Years) and At-Risk Patients (6 to 49) Years) (1 of 2 - PCV) 2021 11/06/2003, 01/30/2003, 2002, Additional history exists COVID-19 Vaccine (3 - season) 2024 04/13/2021, 03/24/2021 Influenza Vaccine (#1) 2024 , 06/28/2018, 07/24/2016, Additional history exists DTaP/Tdap/Td Vaccines (7 - Td or Tdap) 01/01/2025 01/01/2015, 12/07/2006, 02/12/2004, Additional history exists Chlamydia and Gonorrhea Screening 06/23/2025 06/23/2024, 05/07/2023, 11/22/2022, Additional history exists Family Planning (PISQ) 06/23/2025 06/23/2024 Alcohol/Substance Use Screening 10/13/2025 10/13/2024 Depression Screening 10/13/2025 10/13/2024, 10/13/19 SDOH Screening 10/13/2025 10/13/2024 Tobacco Screening 10/16/2025 10/16/2024 Pap Smear 06/23/2027 06/23/2024 Zoster Vaccines (1 [...] Procedure Name Priority Date/Time Associated Diagnosis Comments SARS COV2/INFLUENZA A/B AND RSV RNA QL NAAT Routine 11/11/2024 2:57 PM EST STREP A NUCLEIC ACID Routine 11/11/2024 2:57 PM EST US OB PELVIS TRANSVAGINAL Routine 10/08/2024 2:24 PM EST URINALYSIS WITH REFLEX MICROSCOPIC Routine 10/08/2024 1:18 PM EST HCG, TOTAL, QN Routine 10/08/2024 1:12 PM EST COMPREHENSIVE METABOLIC PANEL Routine 10/08/2024 1:12 PM EST CBC WITH AUTO DIFFERENTIAL Routine 10/08/2024 1:12 PM EST THINPREP IMAGING SYSTEM PAP Routine 06/23/2024 1:32 PM EDT Cervical cancer screening CHLAMYDIA/N. GONORRHOEAE AND T. VAGINALIS RNA, QUAL,TMA Routine 06/23/2024 1:32 PM EDT Encntr screen for infections w sexl mode of transmiss HEPATITIS PANEL, GENERAL Routine 11/22/2022 10:42 AM EST Routine general medical examination at a health care facility HIV 1 RNA, QN PCR W/RFL SHAHBAZ (RTI,PI,INTEGRASE) Routine 11/22/2022 10:42 AM EST Routine screening for STI (sexually transmitted infection) from Last 3 Months or Most Recently Relevant to Health Maintenance Results * Strep A Nucleic Acid (11/11/2024 2:57 PM EST) IDNOW SERIAL# [id number] [facility] Strep A Nucleic Acid Negative Negative [facility] Comment:All test results mus t be correlated with clinical findings.This test has not been evaluated for monitoring treatment ofinfection.Additional follow-up testing using the culture method isrequired if the result is negative and clinical symptomspersist, or in the event of an acute rheumatic feveroutbreak. 11/11/2024 2:57 PM EST 11/11/2024 3:03 PM EST us Generic External Data Provider LAB MICROBIOLOGY - GENERAL ORDERABLES Final Result [facility] [address] [place] [phone] * (ABNORMAL) SARS-CoV-2 RNA, Influenza A/B, and RSV RNA, Ql NAAT (11/11/2024 2:57 PM EST) Influenza A PCR NEGATIVE Negative [facility] Influenza B PCR NEGATIVE Negative [facility] Resp Syncy Virus RNA Qual PCR NEGATIVE Negative [facility] SARS COV2 PCR POSITIVE(A) Negative [facility] Comment:All test results mus t be correlated with clinical findings.Negative results do not preclude SARS-CoV2, influenza Avirus, influenza B virus and/or RSV infectionand should not be used as the sole basis for treatment orother patient management decisions. Negative results must becombined with clinical observations, patient history, andepidemiological information.This test has not been evaluated for monitoring treatment ofinfection.This test has been authorized by the FDA under an EmergencyUse Authorization (EUA) for use by authorized laboratories.Testing performed on the Lumics GeneXpert utilizingreal-time RT-PCR.All SARS CoV2 and positive influenza A/B results arereported to [facility]. 11/11/2024 2:57 PM EST 11/11/2024 3:03 PM EST us Generic External Data Provider LAB MICROBIOLOGY - GENERAL ORDERABLES Final Result [facility] [address] [place] [phone] * US OB Pelvis with Transvaginal (10/08/2024 2:24 PM EST) Anatomical Region Laterality Modality Pelvis Ultrasound 10/08/2024 2:24 PM EST Narrative 10/08/2024 3:04 PM EST ? [facility] ?[address] ?[place] [address] ? Ultrasound Report ? Signed ? Patient: Vines,Angellariesther E ?MR#: [id number] ?? [id number] ? : 2000 ?Acct:[id number] ? Age/Sex: 24 / F ?ADM Date: /22/25 ? Loc: HO.ED ? Attending Dr: ? Ordering Physician: Alysha Rodriguez NP ?? Date of Service: 10/08/24 ?? Procedure(s): US OB pelvic and transvaginal ?? Accession Number(s): [id number] ? cc: [facility]; Alysha Rodriguez NP ? EXAMINATION: ? US [...] DD/ 1424 ? TD/TT: 10/08/24 1438 ? Assessor: ? Procedure Note Donotuseinterpreter, Image - 10/08/[address] [address] Ultrasound Report Signed Patient: Shy Vines EMR#: [id number] : 2000Acct:[id number] Age/Sex: Date: 10/08/24 Loc: HO.ED Attending Dr: Ordering Physician: Alysha Rodriguez NP Date of Service: 10/08/24 Procedure(s): US OB pelvic and transvaginal Accession Number(s): [id number] cc: [facility]; Alysha Rodriguez NP EXAMINATION: US OBSTETRICAL ULTRASOUND [...] 10/08/24 1501 DD/ 1424 TD/TT: 10/08/24 1438 Assessor: [facility] External Provider IMG US PROCEDURES Final Result * Urinalysis w/reflex microscopic (10/08/2024 1:18 PM EST) Color Urine Yellow [facility] Appearance Urine Clear [facility] PH 6.0 5.0 - 9.0 [facility] Glucose Urine UA Negative Negative mg/dL [facility] Urine Blood Negative Negative [facility] Specific [place] - Urine 1.020 1.005 - 1.025 [facility] Urine Protein Negative Neg-Trace mg/dL [facility] Urine Ketones Trace Negative mg/dL [facility] Nitrite Urine Negative Negative [facility] Leukocyte Esterase Urine Negative Negative [facility] 10/08/2024 1:18 PM EST 10/08/2024 1:23 PM EST Narrative [facility] - 10/08/2024 1:32 PM EST [id number], Clean Catch Generic External Data Provider LAB URINE ORDERAB LES Final Result [facility] [address] [place] [phone] * (ABNORMAL) CBC auto differential (10/08/2024 1:12 PM EST) White Blood Count 8.1 4.8 - 10.8 X10*3/uL [facility] Red Blood Count 4.76 4.20 - 5.50 X10*6/uL [facility] Hemoglobin 12.6 12.0 - 16.0 g/dl [facility] Hematocrit 38.3 37.0 - 47.0 % [facility] Mean Corpuscular Volume 80.5 80.0 - 98.0 fL [facility] Mean Corpuscular Hemoglobin 26.5(L) 27.0 - 33.0 pg [facility] Mean Corpuscular HGB Conc 32.9 31.0 - 35.0 g/dl [facility] Red Cell Distribution Width 14.1 11.0 - 16.0 % [facility] Platelet Count 302 160 - 400 X10*3/uL [facility] Mean Platelet Volume 10.1 9.4 - 12.3 fL [facility] Neutrophils Percent Auto 70.4 45 - 73 % [facility] Imm Gran Pct Auto 0.2 0.0 - 0.4 % [facility] Lymphocytes Percent Auto 23.1 20 - 40 % [facility] Monocytes Percent Auto 5.4 2 - 11 % [facility] Eosinophils Percent Auto 0.7 0 - 4 % [facility] Basophils Percent Auto 0.2 0 - 2 % [facility] NRBC Pct Auto 0.0 0.0 - 0.2 /100WBC [facility] Neutrophils Absolute Auto 5.7 2.0 - 8.3 x10*3/uL [facility] Imm Gran Abs Auto 0.02 0.00 - 0.03 X10*3/uL [facility] Lymphocytes Absolute Auto 1.9 1.2 - 4.9 X10*3/uL [facility] Monocytes Absolute Auto 0.4 0.1 - 1.2 X10*3/uL [facility] Eosinophils Absolute Auto 0.1 0.0 - 0.4 X10*3/uL [facility] Basophils Absolute Auto 0.0 0.0 - 0.2 X10*3/uL [facility] NRBC Abs Auto 0.000 0.0 - 0.012 X10*3/uL [facility] 10/08/2024 1:12 PM EST 10/08/2024 1:23 PM EST Generic External Data Provider LAB BLOOD ORDERAB LES Final Result Performing Organization Address [facility] Co de Phone Number [facility] [address] [place] [phone] * hCG, Total, Quantitative (10/08/2024 1:12 PM EST) HCG Quantitative 8,256 mIU/mL [facility] Comment:Weeks post LMP Appro ximate hCG(Last Menstrual Period) Range (mIU/ml)3 - 4 weeks 9 - 1304 - 5 weeks 75 - 2,6005 - 6 weeks 850 - 20,8006 - 7 weeks 4000 - 100,2007 - 12 weeks 11,500 - 289,49151 - 16 weeks 18,300 - 137,82908 - 29 weeks (2nd trimester) 1,400 - 53,56848 - 41 weeks (3rd trimester) 940 - [...] ORDERAB LES Final Result Performing Organization Address [facility] de Phone Number [facility] [address] [place] [phone] * (ABNORMAL) Comprehensive Metabolic Panel (10/08/2024 1:12 PM EST) Sodium 136 135 - 145 mmol/L [facility] Potassium 3.5 3.3 - 5.1 mmol/L [facility] Chloride 107 96 - 108 mmol/L [facility] Carbon Dioxide 25 22 - 29 mmol/L [facility] Anion Gap 8(L) 12 - 20 [facility] Urea Nitrogen (BUN) 10 9 - 16 mg/dL [facility] Creatinine, Serum 0.66 0.5 - 1.4 mg/dL [facility] Creatinine Clr Calc Pharmacy 136.9 [facility] Comment:Provided height and weight: 160.02 cm,83.5 kg.eGFR (calculated from the MDRD study equation) and eCrCl(calculated from the Cockcroft-Gault equation) are based ondifferent parameters and may not yield comparable results.If eCrCl result is absurd, please check patient'sheight/weight. Estimated Glomerular Filt Rate >60 [facility] Comment:Chronic Kidney Disea se: Estimated GFR < 60 mL/min/1.96l6Kmklwp Kidney Disease: Estimated GFR < 15 mL/min/1.73m2 Glucose 83 60 - 115 mg/dL [facility] Calcium 9.5 8.4 - 10.2 mg/dL [facility] Bilirubin, Total 0.3 0.0 - 1.0 mg/dL [facility] Aspartate Amino Transferase 21 5 - 31 U/L [facility] Alanine Aminotransferase 27 0 - 31 U/L [facility] Total Protein 7.7 6.5 - 8.0 g/dL [facility] Albumin Level 4.3 3.5 - 5.0 g/dL [facility] Alkaline Phosphatase 67 39 - 117 U/L [facility] 10/08/2024 1:12 PM EST 10/08/2024 1:23 PM EST us Generic External Data Provider LAB BLOOD ORDERAB LES Final Result [facility] [address] [place] [phone] [phone] * STI Testing add on (NG,CT,Trich) (06/23/2024 1:32 PM EDT) [facility] Signature Trichomonas (NAAT) NOT DETECTED [facility] Comment:REFERENCE RANGE: NOT DETECTEDThe analytical performance characteristics of thisassay have been determined by [employer]. Themodifications have not been cleared or approved bythe FDA. This assay has been validated pursuant to theCLIA regulations and is used for clinical purposes.For additional information, please refer tohttp://[employer]/faq/Trichomonastma(This link is being provided for information/educational purposes only.)THIS TEST PERFORMED AT:[facility] [address] [phone] DIRECTOR: KAI QUINN MD CTNG Ref Lab NOT DETECTED [facility] Comment:REFERENCE RANGE: NOT DETECTEDTHIS TEST PERFORMED AT:[facility] [address] [phone] DIRECTOR: KAI QUINN MD NG Ref Lab NOT DETECTED [facility] Comment:REFERENCE RANGE: NOT DETECTEDThe analytical performance characteristics of thisassay, when used to test SurePath(TM) specimens have beendetermined by [facility]. The modifications havenot been cleared or approved by the FDA. This assay hasbeen validated pursuant to the CLIA regulations and isused for clinical purposes.For additional information, please refer tohttps://[employer] Platform/faq/CWV496(This link is being provided for information/educational purposes only.)THIS TEST PERFORMED AT:[facility] [address] [phone] DIRECTOR: KAI QUINN MD ThinPrep?? vial Cervix uteri structure / Unknown 06/23/2024 1:32 PM EDT 06/23/2024 6:30 PM EDT [facility] - 06/26/2024 12:14 PM EDT Collection Date: [id number] by: CHRISTIAN Casece: Cervix Deidre Prettyclement [facility] CYTOLOGY ORDERABLES F inal Result [facility] [address] [place] [phone] * Pap Smear (06/23/2024 1:32 PM EDT) SOURCE: SEE NOTE [facility] Comment:None given Report Status: [facility] Clinical Information: SEE NOTE [facility] Comment:None given LMP: SEE NOTE [facility] Comment:NONE GIVEN Prev. PAP: SEE NOTE [facility] Comment:NONE GIVEN Prev. BX: SEE NOTE [facility] Comment:NONE GIVEN Statement Of Adequacy: SEE NOTE [facility] Comment:Satisfactory for bonifacio luation.Endocervical/transformation zone componentpresent. General Categorization: [facility] Interpretation/Result: SEE NOTE [facility] Comment:Cytology Results: Ne gative for intraepitheliallesion or malignancy. Cytology Comment SEE NOTE [facility] Comment:This Pap test has be en evaluated with computerassisted technology. Piercer: SEE NOTE [facility] Comment:EXJ, CT(ASCP)CT Scre ening Location: [address] [address] Review Piercer: [facility] Pathologist [facility] PAP Infection [facility] See Note SEE [facility] Comment:EXPLANATORY NOTE:The Pap is a screening test for cervical cancer. It isnot a diagnostic test and is subject to false negativeand false positive results. It is most reliable when asatisfactory sample, regularly obtained, is submittedwith relevant clinical findings and history, and whenthe Pap result is evaluated along with historic andcurrent clinical information.THIS TEST WAS PERFORMED AT:[facility] [address] [address]NNFPHKAI QUINN MD Pap Vial Vaginal structure / Unknown 06/23/2024 1:32 PM EDT 06/23/2024 6:30 PM EDT Narrative [facility] - 06/26/2024 12:11 PM EDT SEE SCANNED RESULTS IN EMR Deidre Daryn CN LAB PATHOLOGY ORDERABLES Final Result Performing Organization Address City/[facility]/ZIP Co de Phone Number [facility] [address] [place] [phone] * HIV-1 RNA, Quantitative, Real-Time PCR with Reflex to Genotype (RTI, PI, Integrase) (11/22/2022 10:42 AM EST) HIV 1 RNA, QN PCR NOT DETECTED copies/mL [facility], HIV 1 RNA, QN PCR NOT DETECTED Log copies/mL [facility], Comment: REFERENCE RANGE: NOT DETECTED copies/mL ?NOT DETECTED ??Log copies/mL This test was performed using Real-Time Polymerase Chain Reaction. Reportable range is 20 to 10,000,000 copies/mL (1.30-7.00 Log copies/mL). 11/22/2022 10:4 2 AM EST 11/22/2022 10:42 AM EST Narrative [facility] - 11/25/2022 9:10 AM EST FASTING:NO FASTING: NO Balbina Singleton HOSPICE AIDE LAB BLOOD ORDERABLES Final Resu lt [facility] [address] [facility], [facility], [place] [address] [facility], [address] [place] [phone] * (ABNORMAL) Hepatitis Panel, General (11/22/2022 10:42 AM EST) Hepatitis A Antibody Total REACTIVE( A) NON-REACT MELANIE [facility] Comment: For additional information, please refer to http://[employer]iram[employer] Platform/faq/KVX812 (This link is being provided for informational/ educational purposes only.) Hepatitis B Surface Antibody QL NON-REACT MELANIE NON-REACT MELANIE [facility] Hepatitis B Surface Ag NON-REACT MELANIE NON-REACT MELANIE [facility] Hepatitis B Core Antibody Total NON-REACT MELANIE NON-REACT MELANIE [facility] Hepatitis C Antibody NON-REACT MELANIE NON-REACT MELANIE [facility] Index 0.07 <1.00 [facility] [employer] [facility] Comment: HCV antibody was non-reactive. There is no laboratory evidence of HCV infection. In most cases, no further action is required. However, if recent HCV exposure is suspected, a test for HCV RNA (test code 43500) is suggested. For additional information please refer to http://[employer] Platform/faq/BSW86h8 (This link is being provided for informational/ educational purposes only.) 11/22/2022 10:4 2 AM EST 11/22/2022 10:42 AM EST Narrative [facility] - 11/25/2022 9:10 AM EST FASTING:NO FASTING: NO Balbina Singleton [facility] LAB BLOOD ORDERABLES Final Resu lt [facility] [address], [place] [address] [facility] [place] [employer] [address] [facility], ([address]) [place] [address] from Last 3 Months or Most Recently Relevant to Health Maintenance Insurance [facility] C3 Care Teams Cinnamon Grinder Relationship Specialty Start Date End Date Margaret Alvarenga NP [address] [place], [place] [address] PCP - General Family Medicine 05/20/24 Caroline Nayak Forklift OperatorPainting Contractor 05/23/24
--- OUTSIDE RECORDS SUMMARY | 2024-11-11 18:48 | XMS_ITS | Encounter Summary ---
Author Organization [facility] Address [address] [facility] [address] [place] [address] Care Team Providers Care Wardrobe Consultant Name Role Phone Balbina SingletonP Primary Care Provider [phone] Margaret Alvarenga NP Primary Care Provider [phone] Encounter Details Date Type Department Care Team ([facility] st Contact Info) Description 12/25/2022 Orders Only [facility] [address] [place] [address] Balbina Singlteon FNP [address] [place] [address] Social History Tobacco Use Types Packs/Day Years [...] documented as of this encounter Care Teams Wardrobe Consultant Relationship Specialty Start Date End Date Balbina Singleton FNP [address] [place] [address] PCP - General Family Medicine 06/22/22 05/19/24 Margaret Alvarenga NP [address] [place] [address] PCP - General Family Medicine 05/20/24 Nadira Rivas Community Development SpecialistStock Broker Supervisor 02/14/24 05/22/24 Caroline Nayak Community Development SpecialistStock Broker Supervisor 05/23/24 documented as of this encounter
--- OUTSIDE RECORDS SUMMARY | 2024-11-11 18:48 | XMS_ITS | Encounter Summary ---
Author Organization [facility] Address [id number] [place] [id number] Care Team Providers Care Craps Manager Name Role Phone LicoCandida DANICA Primary Care Provider [phone] Reason for Visit * Reason Onset Date Comments Possible 10/16/2024 Encounter Details Date Type Department Care Team ([facility] st Contact Info) Description 10/16/2024 Telephone Obstetrics and Gynecology - [place] [address] [place] [address] Diandra Reddy, [facility] [address] [place] [address] Possible Social History Tobacco Use Types Packs/Day Years Used Date Smoking Tobacco: Never Assessed Comments Unknown Sex and Gender Information Value Date Recorded Sex Assigned at Not on file Legal Sex Female 11:08 AM EST Gender Identity Not on file Sexual Orientation Not on file documented as of this encounter Progress Notes * Shadia Barker RN - 10/20/2024 11:57 AM EST Called patient. Medical records received from her ER visit at [facility]. New pt appt scheduled as pt needs to establish care with [facility]. Left message for pt. Sent records to scanning. * Love Colin - 10/17/2024 4:11 PM EST Records received and placed in Diandra's bin at front maker lockstitch. * Kellie Espinosa - 10/16/2024 12:57 PM EST Potential new pt, states was seen at [facility] (notes printed and faxed to sandy, pt request). Pls review and advise documented in this encounter Plan of Treatment Not on file documented as of this encounter Visit Diagnoses Not on filedocumented in this encounter Care Teams Craps Manager Relationship Specialty Start Date End Date Candida Barfield NP [address] [phone] PCP - General Internal Medicine 10/16/24 documented as of this encounter
--- OUTSIDE RECORDS SUMMARY | 2024-11-11 18:48 | XMS_ITS | Encounter Summary ---
Author Organization [employer] Address [address] [facility] [address] [place] [address] Care Team Providers Care Front Office Associate Name Role Phone Balbina SingletonP Primary Care Provider [phone] Margaret Alvarenga NP Primary Care Provider [phone] Reason for Visit * Reason Comments Med Refill Encounter Details Date Type Department Care Team (Late st Contact Info) Description 09/12/2023 Refill [facility] [address] [place] [address] Deidre Stearns CNM [address] [place] [address] Social History Tobacco Use Types Packs/Day Years [...] with others, in a hotel, in a chcf, living outside on the street, on a [...] documented as of this encounter Care Teams Front Office Associate Relationship Specialty Start Date End Date Balbina Singleton FNP [address] [place] [address] PCP - General Family Medicine 06/22/22 05/19/24 Margaret Alvarenga NP [address] [place] [address] PCP - General Family Medicine 05/20/24 Nadira Rivas Instrumentation SpecialistIndustrial Relations Counselor 02/14/24 05/22/24 Caroline Nayak Instrumentation SpecialistIndustrial Relations Counselor 05/23/24 documented as of this encounter
--- OUTSIDE RECORDS SUMMARY | 2024-11-11 18:48 | XMS_ITS | Encounter Summary ---
Author Organization [employer] Address [address] [facility] [address] [place] [address] Care Team Providers Care Stock Control Clerk Name Role Phone Balbina SingletonP Primary Care Provider [phone] Margaret Alvarenga NP Primary Care Provider [phone] Reason for Visit * Reason Onset Date Comments Durable Medical Equipment 02/05/2023 Encounter Details Date Type Department Care Team ([facility] st Contact Info) Description 02/05/2023 Telephone [facility] [address] [place] [address] Balbina Singleton FNP [address] [place], [place] [id number] Durable Medical Equipment Social History Tobacco Use [...] humidifier Any questions please contact collette at [phone] documented in this encounter Plan of Treatment Not on file documented as of this encounter Visit Diagnoses Not on filedocumented in this encounter Additional Health Concerns Assessment Noted Time PHQ-9 Depression Total Score: 16 023 9:45 AM EST documented as of this encounter Care Teams Stock Control Clerk Relationship Specialty Start Date End Date Balbina Singleton FNP [address] [place] [address] PCP - General Family Medicine 06/22/22 05/19/24 Margaret Alvarenga NP [address] [place] [address] PCP - General Family Medicine 05/20/24 Nadira Rivas Rubber And PounderHardware Engineering Manager 02/14/24 05/22/24 Caroline Nayak Rubber And PounderHardware Engineering Manager 05/23/24 documented as of this encounter
--- OUTSIDE RECORDS SUMMARY | 2024-11-11 18:48 | XMS_ITS | Encounter Summary ---
Author Organization [facility] Address [address] [place] [address] Care Team Providers Care Genetics Nurse Name Role Phone Margaret Alvarenga NP Primary Care Provider [phone] Reason for Referral * Consultation (Routine) - Closed Specialty Diagnoses / Procedures Referred By Contac t Referred To Contact Obstetrics and Gynecology Diagnoses Less than 8 weeks gestation of Margaret Alvarenga NP [address] [place] [address] Phone: tel: fax: [facility] [address] 5[address] (Main Hospital Entrance) [place], [place] Phone: tel: fax: Referral ID Status Reason Start Date Expiration Date V isits Requested Visits Authorized [id number] Closed Specialty Services Required 10/13/2024 10/13/2025 30 30 Encounter Details Date Type Department Care Team (Late st Contact Info) Description 10/13/2024 10:30 AM EST Office Visit [facility] [address] [place] [address] Margaret Alvarenga NP [address] [place], [place] [id number] Less than 8 weeks gestation of (Primary Dx); Encounter to establish care; Heartburn during in first trimester Social History Tobacco Use Types Packs/Day Years [...] AM EDT documented as of this encounter Last Filed Vital Signs Vital Sign Reading [...] Mass Index 33.13 10/13/2024 11:09 AM EST documented in this encounter Progress Notes * Margaret Alvarenga, STAGE SET UP WORKER - 10/13/2024 10:30 AM EST Subjective Patient ID: Shy Vines is a 24 y.o. female who presents for transfer patient visit. Denies recent illness, injury or hospitalization. Previous PCP listed [facility], but patient recalls Dr. Dawson. HPI Concerns: she recently found out she's after going to the ED on 10/09/24 with lower abdominal pain. States she has not established with OB as of yet. States her ED discharge paperwork listed Dr. Li but when she called the office she was told he was on vacation. Reports experiencing some heartburn and has been vomiting when she eats. PMHx: Past Medical History: Diagnosis Date Asthma History of COVID-19 Migraine PsurgHX: Past Surgical History: Procedure Laterality Date ADENOIDECTOMY CLOSED REDUCTION FOREARM FRACTURE 2012 TONSILLECTOMY Allergies: Allergies Allergen Reactions Apples [Apple Juice] Green apples cause throat itching Medication: see reviewed list Social Hx: Tobacco Use: Low Risk (10/16/2024) Tobacco Smoking Tobacco Use: Never Smokeless Tobacco Use: Never Passive Exposure: Not on file Alcohol Use: Not on file Living situation: lives alone; still with the male she is for. He is in shock at this timeat the news and needs to process it. She feels he will help Employment/Education: unemployed; gets SSI but she is not sure what for Diet: fruits, carrots, broccoli sometimes. Drinks only two 8oz bottles of water a day and Gatorade for the remainder of the time Exercise: walks a lot Substance use: denies Sexual activity: male partner Last period: Patient's last menstrual period was 2024 (approximate). control method: N/A; currently OB Hx: OB History Para Term AB Living 1 0 0 0 0 0 SAB IAB Ectopic Multiple Live Births 0 0 0 0 0 Mental health: takes hydroxyzine for anxiety Routine Health Maintenance Optometry: Seen at [facility] 10/02/2023. Currently wearing cheaters as her prescribed glasses broke Dental: established with dental home clinic in [place]. Last seen at age 18/19 Breast CA: Not due for routine screening Dexa scan: Not due for routine screening Cervical CA: NILM 06/23/2024; repeat 06/2027 per ASCCP guidelines Colon CA: Not due for routine screening Lung CA: N/A non smoker Outstanding IZ: opts to wait till established with OB (PCV20 - 19-65 with immunocompromising condition, tobacco use, diabetes, or >65 y/o) Tdap: one dose after 19 y/o, then Td or Tdap booster every 10 years. Family History Problem Relation Name Age of Onset OCD Mother Asthma Mother Thyroid disease Mother Cancer Father's Brother Dementia Maternal Grandfather Review of Systems Constitutional: Negative. Negative for chills and fever. Respiratory: Negative for chest tightness and shortness of breath. Cardiovascular: Negative for chest pain. Gastrointestinal: Positive for vomiting. Negative for abdominal pain, constipation, diarrhea and nausea. Genitourinary: Negative for dysuria. Musculoskeletal: Negative for arthralgias, back pain, myalgias and neck pain. Skin: Negative. Negative for rash and wound. Neurological: Negative for weakness, light-headedness and headaches. Psychiatric/Behavioral: Negative for behavioral problems, confusion, decreased concentration and suicidal ideas. Objective: Visit Vitals BP 119/68 (BP Location: Left arm, Patient Position: Sitting, BP Cuff Size: Adult) Pulse 102 Temp 98.6 ??F (37 ??C) (Oral) Resp 22 Ht 5' 3 (1.6 m) Wt 187 lb (84.8 kg) LMP 2024 (Approximate) Comment: Pt stated that she is . SpO2 99% BMI 33.13 kg/m?? OB Status Smoking Status Never BSA 1.94 m?? Patient Active Problem List Diagnosis Moderate persistent asthma without complication Developmental academic disorder Astigmatism Depressive disorder Anxiety Allergic rhinitis Encounter to establish care Heartburn during in first trimester Less than 8 weeks gestation of Current Outpatient Medications: albuterol (2.5 MG/3ML) 0.083% nebulizer solution, Take 3 mL (2.5 mg) by nebulization every 6 (six) hours if needed for wheezing or shortness of breath., Disp: 75 mL, Rfl: 1 albuterol 108 (90 Base) MCG/ACT inhaler, INHALE 2 PUFFS BY MOUTH EVERY 4 TO 6 HOURS IF NEEDED FOR SHORTNESS OF BREATH OR WHEEZING; USE WITH SPACER, Disp: 18 g, Rfl: 2 ferrous gluconate (Fergon) 324 (38 Fe) MG tablet, TAKE 1 TABLET BY MOUTH EVERY OTHER DAY, Disp: 45 tablet, Rfl: 0 fexofenadine (Joy) 180 MG tablet, TAKE 1 TABLET BY MOUTH EVERY MORNING, Disp: 90 tablet, Rfl: 0 fluticasone (Flonase) 50 MCG/ACT nasal spray, Administer 1 spray into each nostril Once per day. Shake gently. Before first use, prime pump. After use, clean tip and replace cap., Disp: 48 mL, Rfl: 1 hydrOXYzine pamoate (Vistaril) 25 MG capsule, TAKE 1 CAPSULE BY MOUTH AT BEDTIME NEEDED FOR ANXIETY OR ALLERGIES, Disp: 90 capsule, Rfl: 0 montelukast (Singulair) 5 MG chewable tablet, CHEW 2 TABLETS BY MOUTH EVERY DAY IN THE EVENING, Disp: 180 tablet, Rfl: 2 SUMAtriptan (Imitrex) 25 MG tablet, TAKE 1 TAB ORALLY AFTER MIGRAINE ONSET MAY REPEAT AFTER 2HRS IFHEADACHE RETURNS,MAX 200MG IN 24HRS, Disp: 15 tablet, Rfl: 0 calcium carbonate (Tums) 500 MG chewable tablet, Chew 1 tablet (500 mg) if needed each day for indigestion or heartburn., Disp: 30 tablet, Rfl: 2 multivitamin () 27-0.8 MG tablet, Take 1 tablet by mouth Once per day., Disp: 30 tablet, Rfl: 3 Immunization History Administered Date(s) Administered DTaP, 5 pertussis antigens 2002, 2002, 01/30/2003, 02/12/2004, 12/07/2006 HPV 9-Valent 03/22/2016, 07/24/2016 HPV, Quadrivalent 01/01/2015 Hep A, ped/adol, 2 dose 03/22/2016, 12/21/2016 Hep B, Adolescent or Pediatric 2002, 01/30/2003, 04/17/2003 Hib (PRP-T) 2002, 2002, 01/30/2003, 11/06/2003 IPV 2002, 2002, 04/17/2003, 12/07/2006 Influenza injectable quadrivalent preservative free 07/24/2016, 06/28/2018, 08/30/2020 Influenza, IIV3, injectable 09/04/2003, 07/25/2004 Influenza, live, intranasal 07/03/2013 MMR 07/31/2003 MMRV 12/07/2006 Meningococcal MCV4P ACYW-135 01/01/2015, 05/28/2020 Novel [id number], all formulations 08/17/2009, 12/06/2009 Pfizer Covid-19 Vaccine 12+ 03/24/2021, 04/13/2021 Pneumococcal Conjugate PCV 7 2002, 2002, 01/30/2003, 11/06/2003 Tdap 01/01/2015 Varicella 07/31/2003 Physical Exam Vitals reviewed. Constitutional: General: She is not in acute distress. Appearance: Normal appearance. She is not ill-appearing. HENT: Head: Normocephalic and atraumatic. Right Ear: External ear normal. Left Ear: External ear normal. Nose: Nose normal. Eyes: General: No scleral icterus. Extraocular Movements: Extraocular movements intact. Cardiovascular: Rate and Rhythm: Normal rate and regular rhythm. Pulses: Normal pulses. Pulmonary: Effort: Pulmonary effort is normal. No respiratory distress. Breath sounds: Normal breath sounds. Musculoskeletal: General: Normal range of motion. Cervical back: Normal range of motion. Skin: General: Skin is warm and dry. Neurological: General: No focal deficit present. Mental Status: She is alert and oriented to person, place, and time. Gait: Gait normal. Psychiatric: Mood and Affect: Mood normal. Behavior: Behavior normal. Assessment/Plan: Problem List Items Addressed This Visit Encounter to establish care -patient is new this provider -patient's personal medical, surgical, and medication histories reviewed along with family hx -routine health maintenance discussed -suggested she complete previously ordered STI screening labs, and outstanding immunizations, however she would like to wait until she establishes with OB Heartburn during in first trimester -GERD teaching completed -patient education provided through my chart and AVS -rx'ed tums -return to clinic with worsening symptoms Relevant Medications calcium carbonate (Tums) 500 MG chewable tablet Less than 8 weeks gestation of - Primary - confirmed via US on 10/08/24 -patient [...] headaches. May continue singular for asthma control, joy and fluticasone as needed -provided additional refills of vitamins -referral for OB placed Relevant Medications multivitamin () 27-0.8 MG tablet Other Relevant Orders Referral to Obstetrics / Gynecology Follow-up 4 months or sooner as needed documented in this encounter Miscellaneous Notes * Patient Education Note - Margaret Alvarenga NP - 10/16/2024 4:24 PM EST Images from the original note were not included. Patient Education Table of Contents Heartburn During To view videos and all your education online visit, [email or web address] or scan this QR code with your smartphone. Access to this content will in one year. Heartburn During Heartburn is a type of pain or discomfort that can happen in the throat or chest. It is often described as a burning sensation. Heartburn is common during because: Progesterone, a hormone that is released during , may relax the valve that separates the esophagus from the stomach (lower esophageal sphincter, or LES). This allows stomach acid to move up into the esophagus, causing heartburn. The uterus gets larger and pushes up on the stomach, which pushes more acid into the esophagus. This is especially true in the later stages of . Heartburn usually goes away or gets better after giving . What are the causes? This condition is caused by stomach acid backing up into the esophagus (reflux). Reflux can be triggered by: Changing hormone levels during . Large meals. Certain foods and beverages. Increased acid in the stomach. What increases the risk? You are more likely to develop this condition if: You had heartburn before . You have had at least two previous pregnancies. You are overweight or obese. Risk for heartburn increases as your baby grows and stretches your uterus. This often happens in the last trimester of when the baby gains the most weight. What are the signs or symptoms? Symptoms of this condition include: Burning pain in the chest or lower throat. A bitter taste in the mouth. Coughing. Problems swallowing. Vomiting. A hoarse voice. Asthma. Symptoms may get worse when you lie down or bend over. Symptoms are often worse at night. How is this diagnosed? This condition is diagnosed based on: Your medical history. Your symptoms. A decrease or relief of symptoms when taking heartburn medicine or making lifestyle changes. A procedure to view the stomach and esophagus using a tube that has a light and camera (endoscopy). How is this treated? Treatment for this condition depends on how severe your symptoms are. Your health care provider mayrecommend: Kspe-yzc-fkdebti medicines for mild heartburn, such as antacids or acid reducers. Prescription medicines to decrease stomach acid or to protect your stomach lining. Changes in your diet, such as smaller meals eaten more often. Raising the head of your bed higher than the foot of the bed. This helps stop stomach acid from backing up into the esophagus when you are lying down. Follow these instructions at home: Eating and drinking Do not drink alcohol during your . Identify foods and beverages that make your symptoms worse and avoid them. Avoid drinking large amounts of liquid with your meals. Avoid eating 2?3 hours before bedtime. Avoid lying down for at least 1 hour after you eat. Do not exercise right after you eat. Beverages to avoid Coffee and tea, with or without caffeine. Energy and sports drinks. Carbonated drinks or sodas. Spry fruit juices. Foods to avoid Spicy or acidic food, such as: ? Peppers, chili powder, martinez powder, vinegar, hot sauces, and barbecue sauce. ? Spry fruits, such as oranges, orlando, and limes. ? Tomato-based foods, such as red sauce, chili, and salsa. High-fat food, such as: ? Hot dogs, precooked or cured meat, sausage, ham, and draper. ? Whole milk, butter, and cheese. Fried and fatty foods, such as donuts, jamaican fries, potato chips, and high-fat dressings. Chocolate and cocoa. Mint. Medicines Take pttl-lrs-gnclbzg and prescription medicines only as told by your health care provider. Do not take aspirin or NSAIDs, such as ibuprofen, unless your health care provider tells you to. You may be instructed to avoid medicines that contain sodium bicarbonate. General instructions If directed, raise the head of your bed about 6 inches (15 cm) by putting blocks under the legs. Sleeping with more pillows is not effective because it only changes the position of your head. Do not use any products that contain nicotine or tobacco. These products include cigarettes, chewing tobacco, and vaping devices, such as e-cigarettes. If you need help quitting, ask your health careprovider. Wear loose-fitting clothing. Try to reduce your stress with yoga or meditation. If you need help managing stress, ask your health care provider. Maintain a healthy weight. If you are overweight, work with your health care provider to safely manage your weight. Where to find more information [place] Association: americanpregnancy.org Contact a health care provider if: Your symptoms last for 2 weeks or more, or you develop new symptoms. You do not improve with treatment. You have unexplained weight loss. You have difficulty swallowing. You make loud sounds when you breathe (wheeze). You have a cough that does not go away. You have nausea or vomiting that does not get better with treatment. You have pain in your abdomen. Your stool is bloody or black. You have pain when swallowing. Get help right away if: You have severe chest pain that spreads to your arm, neck, or jaw. You feel sweaty, dizzy, or light-headed. You have shortness of breath. You vomit, and your vomit looks like blood or coffee grounds. These symptoms may be an emergency. Get help right away. Call 911. Do not wait to see if the symptoms will go away. Do not drive yourself to the hospital. This information is not intended to replace advice given to you by your health care provider. Make sure you discuss any questions you have with your health care provider. Document Released: 2001-08-31 Document Updated: 2023-02-13 Document Reviewed: 2023-02-13 [employer] Patient Education ? 2023 [employer] * Assessment & Plan Note - Margaret Alvarenga NP - 10/16/2024 11:32 AM ESTAssociated Problem(s): Less than 8 weeks gestation of - confirmed via US on 10/08/24 -patient [...] headaches. May continue singular for asthma control, joy and fluticasone as needed -provided additional refills of vitamins -referral for OB placed * Assessment & Plan Note - Margaret Alvarenga NP - 10/16/2024 11:26 AM ESTAssociated Problem(s): Heartburn during in first trimester -GERD teaching completed -patient education provided through my chart and AVS -rx'ed tums -return to clinic with worsening symptoms * Assessment & Plan Note - Margaret Alvarenga NP - 10/16/2024 11:23 AM ESTAssociated Problem(s): Encounter to establish care -patient is new this provider -patient's personal medical, surgical, and medication histories reviewed along with family hx -routine health maintenance discussed -suggested she complete previously ordered STI screening labs, and outstanding immunizations, however she would like to wait until she establishes with OB * Patient Education Note - Margaret Alvarenga NP - 10/13/2024 4:53 PM EST Images from the original note were not included. Patient Education Table of Contents Eating Plan for Women To view videos and all your education online visit, [email or web address] or scan this QR code with your smartphone. Access to this content will in one year. Eating Plan for Women While you are , your body requires additional nutrition to help support your growing baby. You also have a higher need for some vitamins and minerals, such as folic acid, calcium, iron, and vitamin D. Eating a healthy, well- balanced diet is very important for your health and your baby's health. Your need for extra calories varies over the course of your . is divided into three trimesters, with each trimester lasting 3 months. For most women, it is recommended to consume: 150 extra calories a day during the first trimester. 300 extra calories a day during the second trimester. 300 extra calories a day during the third trimester. What are tips for following this plan? Cooking Practice good food safety and cleanliness. Wash your hands before you eat and after you prepare rawmeat. Wash all fruits and vegetables well before peeling or eating. Taking these actions can help to prevent foodborne illnesses that can be very dangerous to your baby, such as listeriosis. Ask yourhealth care provider for more information about listeriosis. Make sure that all meats, poultry, and eggs are cooked to food-safe temperatures or well-done. Meal planning Eat a variety of foods (especially fruits and vegetables) to get a full range of vitamins and minerals. Two or more servings of fish are recommended each week in order to get the most benefits from omega-3 fatty acids that are found in seafood. Choose fish that are lower in mercury, such as salmon and pollock. Limit your overall intake of foods that have empty calories. These are foods that have little nutritional value, such as sweets, desserts, candies, and sugar-sweetened beverages. Drinks that contain caffeine are okay to drink, but it is better to avoid caffeine. Keep your totalcaffeine intake to less than 200 mg each day (which is 12 oz or 355 mL of coffee, tea, or soda) or the limit as told by your health care provider. General information Do not try to lose weight or go on a diet during . Take a vitamin to help meet your additional vitamin and mineral needs during , specifically for folic acid, iron, calcium, and vitamin D. Remember to stay active. Ask your health care provider what types of exercise and activities are safe for you. What does 150 extra calories look like? Healthy options that provide 150 extra calories each day could be any of the followin?8 oz (170?227 g) plain low-fat yogurt with ? cup (70 g) berries. 1 apple with 2 tsp (11 g) peanut butter. Cut-up vegetables with ? cup (60 g) hummus. 8 fl oz (237 mL) low-fat chocolate milk. 1 stick of string cheese with 1 medium orange. 1 peanut butter and jelly sandwich that is made with one slice of whole-wheat bread and 1 tsp (5 g)of peanut butter. For 300 extra calories, you could eat two of these healthy options each day. What is a healthy amount of weight to gain? The right amount of weight gain for you is based on your BMI (body mass index) before you became . If your BMI was less than 18 (underweight), you should gain 28?40 lb (13?18 kg). If your BMI was 18?24.9 (normal), you should gain 25?35 lb (11?16 kg). If your BMI was 25?29.9 (overweight), you should gain 15?25 lb (7?11 kg). If your BMI was 30 or greater (obese), you should gain 11?20 lb (5?9 kg). What if I am having twins or multiples? Generally, if you are carrying twins or multiples: You may need to eat 300?600 extra calories a day. The recommended range for total weight gain is 25?54 lb (11?25 kg), depending on your BMI before . Talk with your health care provider to find out about nutritional needs, weight gain, and exercise that is right for you. What foods should I eat? Fruits All fruits. Eat a variety of colors and types of fruit. Remember to wash your fruits well before peeling or eating. Vegetables All vegetables. Eat a variety of colors and types of vegetables. Remember to wash your vegetables well before peeling or eating. Grains All grains. Choose whole grains, such as whole-wheat bread, oatmeal, or brown rice. Meats and other protein foods Lean meats, including chicken, turkey, and lean cuts of beef, veal, or pork. Fish that is higher inomega-3 fatty acids and lower in mercury, such as salmon, diaz, mussels, trout, sardines, pollock, shrimp, crab, and lobster. Tofu. Tempeh. Beans. Eggs. Peanut butter and other nut butters. Dairy Pasteurized milk and milk alternatives, such as almond milk. Pasteurized yogurt and pasteurized cheese. Cottage cheese. Sour cream. Beverages Water. Juices that contain 100% fruit juice or vegetable juice. Caffeine-free teas and decaffeinated coffee. Fats and oils Fats and oils are okay to include in moderation. Sweets and desserts Sweets and desserts are okay to include in moderation. Seasoning and other foods All pasteurized condiments. The items listed above may not be a complete list of foods and beverages you can eat. Contact a dietitian for more information. What foods should I avoid? Fruits Raw (unpasteurized) fruit juices. Vegetables Unpasteurized vegetable juices. Meats and other protein foods Precooked or cured meat, such as bologna, hot dogs, sausages, or meat loaves. (If you must eat those meats, reheat them until they are steaming hot.) Refrigerated hansen, meat spreads from a meat counter, or smoked seafood that is found in the refrigerated section of a store. Raw or undercooked meats, poultry, and eggs. Raw fish, such as sushi or sashimi. Fish that have high mercury content, such as tilefish, shark, swordfish, and last mackerel. Dairy Unpasteurized milk and any foods that have unpasteurized milk in them. Soft cheeses, such as feta, queso reyes, queso fresco, Brie, Camembert, panela, and blue-veined cheeses (unless they are made with pasteurized milk, which must be stated on the label). Beverages Alcohol. Sugar-sweetened beverages, such as sodas, teas, or energy drinks. Seasoning and other foods Homemade fermented foods and drinks, such as pickles, sauerkraut, or kombucha drinks. (Store-boughtpasteurized versions of these are okay.) Salads that are made in a store or deli, such as ham salad, chicken salad, egg salad, tuna salad, and seafood salad. The items listed above may not be a complete list of foods and beverages you should avoid. Contact a dietitian for more information. Where to find more information To calculate the number of calories you need based on your height, weight, and activity level, you can use an online calculator such as: www.myplate.gov/myplate-plan To calculate how much weight you should gain during , you can use an online weight gain calculator such as: www.myplate.gov To learn more about eating fish during , talk with your health care provider or visit: www.fda.gov Summary While you are , your body requires additional nutrition to help support your growing baby. Eat a variety of foods, especially fruits and vegetables, to get a full range of vitamins and minerals. Practice good food safety and cleanliness. Wash your hands before you eat and after you prepare rawmeat. Wash all fruits and vegetables well before peeling or eating. Taking these actions can help to prevent foodborne illnesses, such as listeriosis, that can be very dangerous to your baby. Do not eat raw meat or fish. Do not eat fish that have high mercury content, such as tilefish, shark, swordfish, and last mackerel. Do not eat raw (unpasteurized) dairy. Take a vitamin to help meet your additional vitamin and mineral needs during , specifically for folic acid, iron, calcium, and vitamin D. This information is not intended to replace advice given to you by your health care provider. Make sure you discuss any questions you have with your health care provider. Document Released: 2015-06-18 Document Updated: 2021-03-29 Document Reviewed: 2021-03-31 [employer] Patient Education ? 2023 [employer] documented in this encounter Plan of Treatment Scheduled Referrals Name Type Priority Associated Diagnoses Order Schedule Referral to Obstetrics / Gynecology Outpatient Referral Routine Less than 8 weeks gestation of Expected: 10/13/2024 (Approximate), Expires: 10/13/2025 documented as of this encounter Visit Diagnoses Diagnosis Less than 8 weeks gestation of - Primary Encounter to establish care Heartburn during in first trimester documented in this encounter Additional Health Concerns Assessment Noted Time PHQ-9 Depression Total Score: 3 10/13/19 25 11:11 AM EST documented as of this encounter Care Teams Genetics Nurse Relationship Specialty Start Date End Date Margaret Alvarenga NP [address] [place] [address] PCP - General Family Medicine 05/20/24 Caroline Nayak Cable FormerEco Industrial Development Consultant 05/23/24 documented as of this encounter
--- OUTSIDE RECORDS SUMMARY | 2024-11-11 18:48 | XMS_ITS | Encounter Summary ---
Author Organization [employer] Address [address] [facility] [address] 7[address] [place] [address] Care Team Providers Care Time Study Engineer Name Role Phone Margaret Alvarenga NP Primary Care Provider [phone] Encounter Details Date Type Department Care Team ([facility] st Contact Info) Description 10/16/2024 Telephone [facility] MEDICINE [address] [place] [address] Rosie Liu RN Social History Tobacco Use Types Packs/Day Years [...] your housing situation today? I have paty naun 10/13/[address] you li [...] AM EDT documented as of this encounter Miscellaneous Notes * Telephone Encounter - Rosie Liu RN - 10/16/2024 2:51 PM EST Tc to pt to let them know per PCP Please call this patient and review with her the medications noted in the plan to discontinue while . Also assess control of her asthma on her current regimen and if she has been consistent with use of her Singulair. Thanks . Pt was seen by PCP at last ovon 10/13/24 where recommendations made on that say were current medications reviewed and advised discontinuation of hydroxyzine, and sumatriptan at this stage in , rather take tylenol as needed headaches. May continue singular for asthma control, joy and fluticasone as needed,provided additional refills of vitamins and referral for OB placed. No answer, lvm to return call a nd ask to speak to blue team nurses. * Telephone Encounter - Rosie Liu RN - 10/16/2024 2:51 PM EST ----- Message from Margaret Alvarenga sent at 10/16/2024 11:34 AM EST ----- Please call this patient and review with her the medications noted in the plan to discontinue while. Also assess control of her asthma on her current regimen and if she has been consistent with use of her Singulair. Thanks documented in this encounter Plan of Treatment Not on file documented as of this encounter Visit Diagnoses Not on filedocumented in this encounter Additional Health Concerns Assessment Noted Time PHQ-9 Depression Total Score: 3 10/13/19 25 11:11 AM EST documented as of this encounter Care Teams Time Study Engineer Relationship Specialty Start Date End Date Margaret Alvarenga NP [address] [place] [address] PCP - General Family Medicine 05/20/24 Caroline Nayak Team Sports Sales AssociatePhoto Offset Printer 05/23/24 documented as of this encounter
--- OUTSIDE RECORDS SUMMARY | 2024-11-11 18:48 | XMS_ITS | Encounter Summary ---
Author Organization [employer] Address [address] [facility] [address] [place] [address] Care Team Providers Care Supervisor Concrete Stone Finishing Name Role Phone Margaret Alvarenga NP Primary Care Provider [phone] Reason for Visit * Reason Onset Date Comments Med Refill 06/24/2024 Encounter Details Date Type Department Care Team (Late st Contact Info) Description 06/24/2024 Refill [facility] [address] [place] [address] Diogenes Shay MD [address] [place] [address] Acute cystitis with hematuria Social History Tobacco [...] documented as of this encounter Care Teams Supervisor Concrete Stone Finishing Relationship Specialty Start Date End Date Margaret Alvarenga NP [address] [place] [address] PCP - General Family Medicine 05/20/24 Caroline Nayak Auto Transmission TechnicianTaco Maker 05/23/24 documented as of this encounter
--- OUTSIDE RECORDS SUMMARY | 2024-11-11 18:48 | XMS_ITS | Encounter Summary ---
Author Organization [employer] Address [address] [facility] 7t [place] [address] Care Team Providers Care Reclamation Furnace Operator Name Role Phone Margaret Alvarenga NP Primary Care Provider [phone] Reason for Visit * Reason Onset Date Comments Med Refill 06/24/2024 Encounter Details Date Type Department Care Team (Late st Contact Info) Description 06/24/2024 Refill [facility] MEDICINE [address] [place] [address] Deidre Stearns CNM [address] [place] [address] Social History Tobacco Use Types Packs/Day Years [...] documented as of this encounter Care Teams Reclamation Furnace Operator Relationship Specialty Start Date End Date Margaret Alvarenga NP [address] [place] [address] PCP - General Family Medicine 05/20/24 Caroline Nayak Storeroom KeeperMolecular Modeler 05/23/24 documented as of this encounter
--- OUTSIDE RECORDS SUMMARY | 2024-11-11 18:48 | XMS_ITS | Encounter Summary ---
Author Organization [facility] Address [address] [facility] 7t [place] [address] Care Team Providers Care Sourcing Assistant Name Role Phone Balbina SingletonP Primary Care Provider [phone] Margaret Alvarenga NP Primary Care Provider [phone] Encounter Details Date Type Department Care Team ([facility] st Contact Info) Description 12/04/2022 Orders Only [facility] MEDICINE [address] [place] [address] Balbina Singleton FNP [address] [place] [address] Other iron deficiency anemia (Primary Dx) Social [...] on file documented as of this encounter Procedures Procedure Name Priority Date/Time Associated Diagnosis Comments IRON, TIBC AND FERRITIN PANEL Routine 12/05/2022 10:00 AM EDT Other iron deficiency anemia documented in this encounter Results * (ABNORMAL) Iron, TIBC And Ferritin Panel (12/05/2022 10:00 AM EDT) Iron, Total 25(L) 40 - 190 mcg/dL [facility] Iron Binding Capacity 350 250 - 450 mcg/dL (calc) [facility] % Saturation 7(L) 16 - 45 % (calc) [facility] Ferritin 4(L) 16 - 154 ng/mL [facility] Venous blood specimen / Unknown 12/05/2022 10:00 AM EDT 12/05/2022 10:01 AM EDT Narrative [facility] - 12/05/2022 8:07 PM EDT FASTING:NO FASTING: NO us Balbina [facility] BLOOD ORDERABLES Final Resu lt [facility] [address], [place] [address] [facility] [address] [place] [address] documented in this encounter Visit Diagnoses Diagnosis Other iron deficiency anemia- Primary documented in this encounter Additional Health Concerns Assessment Noted Time PHQ-9 Depression Total Score: 16 023 9:45 AM EST documented as of this encounter Care Teams Sourcing Assistant Relationship Specialty Start Date End Date Balbina Singleton FNP [address] [place] [address] PCP - General Family Medicine 06/22/22 05/19/24 Margaret Alvarenga NP [address] [place] [address] PCP - General Family Medicine 05/20/24 Nadira Rivas Animal EcologistInstructor Decorating 02/14/24 05/22/24 Caroline Nayak Animal EcologistInstructor Decorating 05/23/24 documented as of this encounter
--- OUTSIDE RECORDS SUMMARY | 2024-11-11 18:48 | XMS_ITS | Clinical Summary ---
Author Organization [facility] Address [address] [place] [address] Phone Care Team Providers Care Instruments Sales Representative Name Role Phone Candida Barfield NP Primary Care Provider [phone] Encounters Date Type Department Care Team Description 10/16/2024 Telephone Obstetrics and Gynecology - [address] [phone] Diandra Reddy CNM Possible from Last 3 Months Social History Tobacco Use Types Packs/Day Years Used Date Smoking Tobacco: Never Assessed Comments Unknown Sex and Gender Information Value Date Recorded Sex Assigned at Not on file Legal Sex Female 11:08 AM EST Gender Identity Not on file Sexual Orientation Not on file Plan of Treatment Health Maintenance Due Date Last Done Comments Gonorrhea/Chlamydia Screening 2002 HPV Vaccines (1 - 3-dose series) 2017 Meningococcal B Vacine (1 of 2 - Standard) 2018 DTaP,Tdap,and Td Vaccines (1 - Tdap) 2021 Hepatitis B Vaccines (1 of 3 - 19+ 3-dose series) 2021 Cervical Cancer Screening: P ap Smear 2023 COVID-19 Vaccine (1 - 2023-2 5 season) 2024 Influenza Vaccine (#1) 2024 Depression Screening 10/16/2024 HIV Screening 10/16/2024 Hepatitis C Screening 10/16/2024 Social Influencers of Health Screening 10/16/2024 HIB Vaccines Aged Out No longer eligi ble based on patient's age to complete this topic Hepatitis A Vaccines Aged Out No long er eligible based on patient's age to complete this topic IPV Vaccines Aged Out No longer eligi ble based on patient's age to complete this topic MMR Vaccines Aged Out No longer eligi ble based on patient's age to complete this topic Meningococcal ACWY Vaccine Aged Out N o longer eligible based on patient's age to complete this topic Pneumococcal Vaccine: Pediat rics (0 to 5 Years) and At-Risk Patients (6 to 64 Years) Aged Out No longer eligible b ased on patient's age to complete this topic RSV Immunization Patients Un mark 20 months Aged Out No longer eligible b ased on patient's age to complete this topic Varicella Vaccines Aged Out No longer eligible based on patient's age to complete this topic Insurance MEDICAID - [place] Care Teams Instruments Sales Representative Relationship Specialty Start Date End Date Candida Barfield NP [address] [facility] [address] [place] [address] PCP - General Internal Medicine 10/16/24
--- OUTSIDE RECORDS SUMMARY | 2024-11-11 18:48 | XMS_ITS | Encounter Summary ---
Author Organization [facility] Address [address] [place] [address] Phone Care Team Providers Care Can Capper Name Role Phone Beena Gandhi MD Primary Care Provider Unavailabl e Encounter Details Date Type Department Care Team (Late st Contact Info) Description 08/17/2011 Documentation [facility] [place] Family Medicine [address] [place] [address] Family Medicine, Physician [address] [place], [place] [phone] Social History Tobacco Use Types Packs/Day Years [...] on filedocumented in this encounter Care Teams Can Capper Relationship Specialty Start Date End Date Beena Gandhi MD PCP - General 04/27/17 documented as of this encounter
--- OUTSIDE RECORDS SUMMARY | 2024-11-11 18:48 | XMS_ITS | Encounter Summary ---
Author Organization [facility] Address [address] [place] [address] Phone Care Team Providers Care Neuropsychology Director Name Role Phone Beena Gandhi MD Primary Care Provider Unavailabl e Encounter Details Date Type Department Care Team (Late st Contact Info) Description 05/03/2017 Conversion Encounter [facility] - [address] [address] Social History Tobacco Use Types Packs/Day Years [...] on filedocumented in this encounter Care Teams Neuropsychology Director Relationship Specialty Start Date End Date Beena Gandhi MD PCP - General 04/27/17 documented as of this encounter
--- OUTSIDE RECORDS SUMMARY | 2024-11-11 18:48 | XMS_ITS | Encounter Summary ---
Author Organization [employer] Address 75 [facility] 7t [place] [address] Care Team Providers Care Lumber Inspector Name Role Phone Margaret Alvarenga NP Primary Care Provider [phone] Encounter Details Date Type Department Care Team (Latest Contact Info) Description 10/13/2024 Travel Social History Tobacco Use Types Packs/Day Years [...] is your housing situation today? I have patysuraj magallon 10/13/[address] you [...] the past 12 months, has t he [employer], [employer], oil or water company threatened to shut [...] documented as of this encounter Care Teams Lumber Inspector Relationship Specialty Start Date End Date Margaret Alvarenga NP [address] [place] [address] PCP - General Family Medicine 05/20/24 Caroline Nayak Control Center OperatorResearch And Development Chemist 05/23/24 documented as of this encounter
--- OUTSIDE RECORDS SUMMARY | 2024-11-11 18:48 | XMS_ITS | Encounter Summary ---
Author Organization [employer] Address 75 [facility] 7t [place] [address] Care Team Providers Care Director Of Social Services Name Role Phone Margaret Alvarenga NP Primary Care Provider [phone] Reason for Visit * Reason Onset Date Comments Med Refill 06/24/2024 Encounter Details Date Type Department Care Team (Late st Contact Info) Description 06/24/2024 Refill [facility] MEDICINE [address] [place] [address] Orestes Spencer MD [address] [place] [address] Social History Tobacco Use Types Packs/Day Years [...] documented as of this encounter Care Teams Director Of Social Services Relationship Specialty Start Date End Date Margaret Alvarenga NP [address] [place] [address] PCP - General Family Medicine 05/20/24 Caroline Nayak Installer ApprenticeDirector Of Creative Services 05/23/24 documented as of this encounter
--- OUTSIDE RECORDS SUMMARY | 2024-11-11 18:48 | XMS_ITS | Clinical Summary ---
Author Organization [facility] Address [address] [place] [address] Phone Care Team Providers Care Ornamental Plaster Sticker Name Role Phone Beena Gandhi MD Primary Care Provider Unavailabl e Immunizations Immunization Administration Dates Next Due DTaP 5 12/07/2006, [...] age to complete this topic Care Teams Ornamental Plaster Sticker Relationship Specialty Start Date End Date Beena Gandhi MD PCP - General 04/27/17
--- OUTSIDE RECORDS SUMMARY | 2024-11-11 18:48 | XMS_ITS | Encounter Summary ---
Author Organization [employer] Address 75 [facility] 7t [place] [address] Care Team Providers Care Stage Electrician Name Role Phone Margaret Alvarenga NP Primary Care Provider [phone] Encounter Details Date Type Department Care Team ([facility] st Contact Info) Description 11/11/2024 Orders Only GENERIC EXTERNAL DATA [...] Procedure Name Priority Date/Time Associated Diagnosis Comments STREP A NUCLEIC ACID Routine 11/11/2024 2:57 PM EST SARS COV2/INFLUENZA A/B AND RSV RNA QL NAAT Routine 11/11/2024 2:57 PM EST documented in this encounter Results * (ABNORMAL) SARS-CoV-2 RNA, Influenza A/B, and RSV RNA, Ql NAAT (11/11/2024 2:57 PM EST) Influenza A PCR NEGATIVE Negative [facility] Influenza B PCR NEGATIVE Negative [facility] Resp Syncy Virus RNA Qual PCR NEGATIVE Negative [facility] SARS COV2 PCR POSITIVE(A) Negative [facility] Comment:All test results mus t be [...] use by authorized laboratories.Testing performed on the [employer] GeneXpert utilizingreal-time RT-PCR.All SARS CoV2 and positive influenza A/B results arereported to [facility]. 11/11/2024 2:57 PM EST 11/11/2024 3:03 PM EST Generic External Data Provider LAB MICROBIOLOGY - GENERAL ORDERABLES Final Result Performing Organization Address [facility] de Phone Number [facility] [address] [place] [phone] * Strep A Nucleic Acid (11/11/2024 2:57 PM EST) [facility]NOW SERIAL# [id number] [facility] Strep A Nucleic Acid Negative Negative [facility] Comment:All test results mus t be correlated with clinical findings.This test has not been evaluated for monitoring treatment ofinfection.Additional follow-up testing using the culture method isrequired if the result is negative and clinical symptomspersist, or in the event of an acute rheumatic feveroutbreak. 11/11/2024 2:57 PM EST 11/11/2024 3:03 PM EST Generic External Data Provider LAB MICROBIOLOGY - GENERAL ORDERABLES Final Result Performing Organization Address [facility] de Phone Number [facility] [address] [place] [phone] documented in this encounter Visit Diagnoses Not on filedocumented in this encounter Additional Health Concerns Assessment Noted Time PHQ-9 Depression Total Score: 3 10/13/19 25 11:11 AM EST documented as of this encounter Care Teams Stage Electrician Relationship Specialty Start Date End Date Margaret Alvarenga NP [address] [place] [address] PCP - General Family Medicine 05/20/24 Caroline Nayak Importer ExporterRadiographer Mammographer 05/23/24 documented as of this encounter
--- OUTSIDE RECORDS SUMMARY | 2024-11-11 18:48 | XMS_ITS | Encounter Summary ---
Author Organization [facility] Address [address] [place] [address] Phone Care Team Providers Care Head Butler Name Role Phone Beena Gandhi MD Primary Care Provider Unavailabl e Encounter Details Date Type Department Care Team (Late st Contact Info) Description 04/08/2012 Documentation [facility] [place] [place] [address] [place] [address] Family Medicine, Physician [address] [place], [place] [phone] Social History Tobacco Use Types Packs/Day Years [...] on filedocumented in this encounter Care Teams Head Butler Relationship Specialty Start Date End Date Beena Gandhi MD PCP - General 04/27/17 documented as of this encounter
--- OUTSIDE RECORDS SUMMARY | 2024-11-11 18:48 | XMS_ITS | Encounter Summary ---
Author Organization [facility] Address [address] [place] [phone] Phone Care Team Providers Care Owner Operator Name Role Phone Beena Gandhi MD Primary Care Provider Unavailabl e Encounter Details Date Type Department Care Team (Late st Contact Info) Description 03/09/2011 Documentation [facility] Family Medicine [address] [place] [address] Family Medicine, Physician [address] [place], [place] [phone] Social History Tobacco Use Types Packs/Day Years [...] on filedocumented in this encounter Care Teams Owner Operator Relationship Specialty Start Date End Date Beena Gandhi MD PCP - General 04/27/17 documented as of this encounter
--- OUTSIDE RECORDS SUMMARY | 2024-11-11 18:48 | XMS_ITS | Encounter Summary ---
Author Organization [employer] Address 75 [facility] 7t [place] [address] Care Team Providers Care Bonderizer Name Role Phone Balbina SingletonP Primary Care Provider [phone] Margaret Alvarenga NP Primary Care Provider [phone] Reason for Visit * Reason Comments Med Refill Encounter Details Date Type Department Care Team (Late st Contact Info) Description 11/27/2023 Refill [facility] [address] [place] [address] Orestes Spencer MD [address] [place] [address] Social History Tobacco Use Types Packs/Day Years [...] documented as of this encounter Care Teams Bonderizer Relationship Specialty Start Date End Date Balbina Singleton FNP [address] [place] [address] PCP - General Family Medicine 06/22/22 05/19/24 Margaret Alvarenga NP [address] [place] [address] PCP - General Family Medicine 05/20/24 Nadira Rivas Tow MateWeb Development Consultant 02/14/24 05/22/24 Caroline Nayak Tow MateWeb Development Consultant 05/23/24 documented as of this encounter
[2024-11-11] MEDS: 0.9 % Sodium Chloride 1,000 ML 999 ML IV (19:37)
[2024-11-11 19:41] LABS: MANUAL DIFF FLAG NO
[2024-11-11 19:42] LABS: Basophils Percent Auto 0.1 % (0-2); Eosinophils Percent Auto 0.1 % (0-4); Hematocrit 36.8 % (37.0-47.0); Hemoglobin 12.3 g/dl (12.0-16.0); Imm Gran Abs Auto 0.01 X10*3/uL (0.00-0.03); Imm Gran Pct Auto 0.1 % (0.0-0.4); Lymphocytes Absolute Auto 1.4 X10*3/uL (1.2-4.9); Lymphocytes Percent Auto 21.3 % (20-40); Mean Corpuscular HGB Conc 33.4 g/dl (31.0-35.0); Mean Corpuscular Hemoglobin 26.7 pg (27.0-33.0); Mean Corpuscular Volume 79.8 fL (80.0-98.0); Mean Platelet Volume 10.8 fL (9.4-12.3); Monocytes Absolute Auto 0.6 X10*3/uL (0.1-1.2); Monocytes Percent Auto 8.5 % (2-11); Neutrophils Absolute Auto 4.7 x10*3/uL (2.0-8.3); Neutrophils Percent Auto 69.9 % (45-73); Platelet Count 210 X10*3/uL (160-400); Red Blood Count 4.61 X10*6/uL (4.20-5.50); Red Cell Distribution Width 15.2 % (11.0-16.0); White Blood Count 6.7 X10*3/uL (4.8-10.8)
[2024-11-11 19:55] LABS: Alanine Aminotransferase 18 U/L (0-31); Albumin Level 4.1 g/dL (3.5-5.0); Alkaline Phosphatase 64 U/L (39-117); Anion Gap 14 (12-20); Aspartate Amino Transferase 19 U/L (5-31); Bilirubin Direct 0.2 mg/dL (0.0-0.5); Bilirubin Total 0.4 mg/dL (0.0-1.0); Blood Urea Nitrogen 5 mg/dL (9-16); Calcium 9.2 mg/dL (8.4-10.2); Carbon Dioxide 19 mmol/L (22-29); Chloride 106 mmol/L (96-108); Creatinine Clr Calc Pharmacy 170.9; Estimated Glomerular Filt Rate > 60; Glucose Random 82 mg/dL (60-115); Lipase 13 U/L (8-78); Potassium 3.8 mmol/L (3.3-5.1); Sodium 135 mmol/L (135-145); Total Protein 7.6 g/dL (6.5-8.0)
[2024-11-11 20:03] VITALS: BP 118/64; PULSE 90; RESP 20; TEMP 36.9; O2SAT 100
[2024-11-11] MEDS: ondansetron HCL 4 MG/2 ML VIAL IVPUSH (20:04)
[2024-11-11 21:03] VITALS: BP 118/64; PULSE 90; RESP 20; TEMP 36.9; O2SAT 100
== END 2024-11-11 21:03 | disposition home or self-care (01) ==
PROVIDERS: Registered Nurse Emergency; Emergency Provider Emergency Medicine
DX: O21.0 Mild hyperemesis gravidarum (principal); O98.511 Other viral diseases complicating pregnancy, first trimester; U07.1 COVID-19; Z3A.10 10 weeks gestation of pregnancy; Z03.818 Encounter for observation for suspected exposure to other biological agents ruled out; Z79.899 Other long term (current) drug therapy
CPT/HCPCS: 0241U; 36415; 76815; 80048; 80076; 83690; 85025; 86900; 86901; 87651; 96361; 96374; 99284; J2405

== ENCOUNTER → 2024-11-11 18:49 | Outpatient (BNV) | payer MEDICAID, SELFPAY | PROVIDERS: Emergency Provider Emergency Medicine; Visit Provider Radiology Diagnostic Radiology | DX: R10.9 Unspecified abdominal pain (principal); R11.10 Vomiting, unspecified; Z3A.10 10 weeks gestation of pregnancy | CPT/HCPCS: 76815 ==